=== PATIENT | female | born 1930 ===

== ENCOUNTER 2017-03-25 11:41 | Inpatient (IN) | payer OTHER ==
[2017-03-25 11:45] VITALS: BMI 27.3
[2017-03-25 13:39] LABS: BASO # 0.1 K/uL (0.0-0.2); BASO % 1.3 % (0.0-2.0); EOS # 0.1 K/uL (0.0-0.7); EOS % 1.4 % (0.0-4.0); HEMOGLOBIN 9.6 g/dL (12.0-16.0); LYMPH # 1.6 K/uL (1.0-4.3); LYMPH % 14.7 % (20.0-40.0); MEAN CELL VOLUME 89.2 fl (81.0-99.0); MEAN CORPUSCULAR HEMOGLOBIN 29.8 pg (27.0-31.0); MEAN CORPUSCULAR HGB CONC 33.4 g/dL (33.0-37.0); MEAN PLATELET VOLUME 8.1 fl (7.2-11.7); MONO # 0.9 K/uL (0.0-0.8); MONO % 8.8 % (0.0-10.0); NEUT # 7.8 K/uL (1.8-7.0); NEUT % 73.8 % (50.0-75.0); RBC 3.21 Mil/uL (3.80-5.20); RED CELL DISTRIBUTION WIDTH 14.1 % (11.5-14.5); WHITE BLOOD COUNT 10.6 K/uL (4.8-10.8)
[2017-03-25 14:05] LABS: ALT/SGPT 33 U/L (9-52); AST/SGOT 54 U/L (14-36); BLOOD UREA NITROGEN 27 mg/dl (7-17); CALCIUM 8.8 mg/dL (8.4-10.2); GFR AFRICAN-AMERICAN > 60; GFR NON-AFRICAN AMERICAN 59
--- NOTE | 2017-03-25 14:15 | RAD ---
PROCEDURE: Radiographs of the Right Forearm HISTORY: prior R arm fx COMPARISON: None available. TECHNIQUE: Limited to a single lateral view of the forearm. FINDINGS: BONES: Grossly limited. Only a single lateral view. No fracture identified. JOINT SPACES: Unremarkable. OTHER FINDINGS: None. IMPRESSION: Normal limited examination.
--- NOTE | 2017-03-25 14:17 | RAD ---
PROCEDURE: Radiographs of the right elbow. HISTORY: prior recent R arm fx COMPARISON: No prior. FINDINGS: BONES: No definite fracture. Technically limited examination. No frontal view submitted. JOINTS: Normal. No osteoarthritis. SOFT TISSUES: Normal. JOINT EFFUSION: None. OTHER FINDINGS: None. IMPRESSION: Negative technically limited examination.
--- NOTE | 2017-03-25 14:18 | RAD ---
PROCEDURE: Radiographs of the right humerus. HISTORY: prior recent R arm fx COMPARISON: None. FINDINGS: BONES: Fracture right humeral neck. Displaced. No evidence of glenohumeral dislocation. No other fracture identified. Limited examination technically. SOFT TISSUES: Normal. OTHER FINDINGS: None. IMPRESSION: Displaced humeral neck fracture.
--- NOTE | 2017-03-25 14:19 | RAD ---
PROCEDURE: Radiographs of the Right Shoulder HISTORY: prior recent R arm fx COMPARISON: No prior. FINDINGS: BONES: Grossly displaced humeral neck fracture. Likely comminuted. No other fracture identified. Glenohumeral articulation appears intact. Acromioclavicular articulation appears intact. JOINTS: Normal. Glenohumeral and acromioclavicular joints preserved. No osteoarthritis. SOFT TISSUES: Normal. OTHER FINDINGS: None. IMPRESSION: Comminuted grossly displaced humeral neck fracture.
--- NOTE | 2017-03-25 14:20 | RAD ---
HISTORY: SOB COMPARISON: No prior. FINDINGS: LUNGS: No active pulmonary disease. PLEURA: No significant pleural effusion identified, no pneumothorax apparent. CARDIOVASCULAR: Mitral annular calcification. OSSEOUS STRUCTURES: Comminuted right humeral neck fracture with gross displacement. VISUALIZED UPPER ABDOMEN: Normal. OTHER FINDINGS: None. IMPRESSION: Comminuted displaced right humeral neck fracture.
--- NOTE | 2017-03-25 14:58 | ED PDOC ---
Upper Extremity Pain/Injury Time Seen by Provider: 03/25/17 12:03 Chief Complaint (Nursing): Upper Extremity Problem/Injury Chief Complaint (Provider): Right arm pain History Per: Patient History/Exam Limitations: no limitations Onset/Duration Of Symptoms: Days Current Symptoms Are (Timing): Still Present Additional Complaint(s): 86yo female with history of hypertension, presents to ED with complaints of persistent right arm pain due to frequent falls at home. Patient injured her right arm 1 month ago and was seen at [facility] [place]; patient was discharged with instructions to follow up with orthopedist however she states she has not followed up with either an orthopedist or her primary care provider. She states since then, she has fallen 3-4 times at home and is unable to ambulate effectively. Patient lives alone and does not have her family in the area; she has a home-maker for several hours several days a week. She denies any headache , neck pain, chest pain or shortness of breath. She has no other medical complaints. Past Medical History Reviewed: Historical Data, Nursing Documentation, Vital Signs Vital Signs: Last Vital Signs Temp 98.3 F 03/25/17 11:45 Pulse 86 03/25/17 11:45 Resp 17 03/25/17 11:45 BP 147/77 03/25/17 11:45 Pulse Ox 99 03/25/17 11:45 - Medical History PMH: HTN - Surgical History Surgical History: No Surg Hx - Family History Family History: States: Unknown Family Hx - Living Arrangements Living Arrangements: Alone - Home Medications Home Medications: Ambulatory Orders Medication Instructions Recorded Prednisone [Deltasone] 40 mg PO DAILY #8 tablet 09/12/16 traMADol [Ultram] 50 mg PO Q6H PRN #20 tab 09/12/16 - Allergies Allergies/Adverse Reactions: Allergies Allergy/AdvReac Type Severity Reaction Status Date / Time No Known Allergies Allergy Verified 03/25/17 11:44 Review of Systems ROS Statement: Except As Marked, All Systems Reviewed And Found Negative Cardiovascular: Negative for: Chest Pain Respiratory: Negative for: Shortness of Breath Musculoskeletal: Positive for: Arm Pain (right). Negative for: Neck Pain Neurological: Negative for: Headache Physical Exam - Reviewed Nursing Documentation Reviewed: Yes Vital Signs Reviewed: Yes - Physical Exam Neck: Positive for: Supple Cardiovascular/Chest: Positive for: Regular Rate, Rhythm Respiratory: Positive for: Normal Breath Sounds. Negative for: Respiratory Distress (.) Back: Positive for: Normal Inspection. Negative for: Vertebral Tenderness Extremity: Negative for: Normal ROM (Loss of ROM at right shoulder with old appearing ecchymosis along right shoulder and chest wall. Patient has her arm in a poorly fitted sling and mikayla bandage around her elbow, which appears old.), Tenderness (Patient has non-tender hips and pelvis. ) Neurologic/Psych: Positive for: Alert, Oriented. Negative for: Motor/Sensory Deficits - Laboratory Results Result Diagrams: 03/25/17 13:22 03/25/17 13:22 - ECG O2 Sat by Pulse Oximetry: 99 (RA) Pulse Ox Interpretation: Normal Medical Decision Making Medical Decision Making: Impression: Right upper extremity pain Plan: -- Labs -- Chest x-ray -- XR Right upper extremity -- PT consult Reassess Time: 1215 Labs reviewed and indicates mild stable anemia. Chemistry indicates mild dehydration. Time: 1500 Chest x-ray reviewed and indicates no acute infiltrates. XR Right upper extremity reviewed, indicates a comminuted right humeral neck fracture. High concern for inability to care for self at home. Dr. Gentile aware of case and will follow patient. Time: 1506 Patient seen and evaluated by physical therapy, recommends subacute rehab. Cannot be discharged as cannot ambulate and failed outpatient therapy. Patient complaining of mild cough, on exam patient noted to have slight wheeze. Brad ordered. Patient to be admitted under medicine division human resources manager, Dr. Damico. Scribe Attestation: Documented by Diana Chapman acting as a scribe for Mj Andrade DO. Provider Attestation: All medical record entries made by the Scribe were at my direction and personally dictated by me. I have reviewed the chart and agree that the record accurately reflects my personal performance of the history, physical exam, medical decision making, and the department course for this patient. I have also personally directed, reviewed, and agree with the discharge instructions and disposition. Disposition - Clinical Impression Clinical Impression: Humeral surgical neck fracture, Asthma exacerbation - Patient ED Disposition Is Patient to be Admitted: Yes Counseled Patient/Family Regarding: Studies Performed, Diagnosis, Need For Followup - Disposition Disposition Time: 14:45 Condition: FAIR - Pt Status Changed To: Hospital Disposition Of: Inpatient - Admit Certification Admit to Inpatient:: After my assessment, the patient will require hospitalization for at least two midnights. This is because of the severity of symptoms shown, intensity of services needed, and/or the medical risk in this patient being treated as an outpatient. - POA Present On Arrival: Falls Or Trauma
[2017-03-25] MEDS ORDERED: Albuterol-Ipratrop 3 mg / 0.5 (3 ml) UD INH STA (15:05)
--- NOTE | 2017-03-25 15:30 | CP.PCM.CON ---
History of Present Illness - History of Present Illness History of Present Illness: Orthopaedic Consult note for Dr. Gentile 86 year old female with PMHx including HTN was seen in the ED for complaint of right shoulder pain. Patient states that a few weeks ago, she fell and hurt her right shoulder. She was seen at that time at [facility] [place] and was discharged home. She states that she did not follow up as instructed. She states that she has since fallen 3 more times at home. She admits to taking aspirin for the pain, but it doesn't help much. She currently rates her pain as 7/10. She is unable to move her right upper extremity without pain. She is currently in a sling. She currently denies any n/v/f/c/sob/cp. Past Patient History - Past Social History Smoking Status: Never Smoked - CARDIAC Hx Hypertension: Yes - PSYCHIATRIC Hx Substance Use: No Meds Allergies/Adverse Reactions: Allergies Allergy/AdvReac Type Severity Reaction Status Date / Time No Known Allergies Allergy Verified 03/25/17 11:44 Physical Exam - Constitutional Appears: Well, Non-toxic, No Acute Distress - Extremities Exam Additional comments: ecchymosis noted to the right shoulder tenderness on palpation to right shoulder Shoulder ROM deferred due to pain - Neurological Exam Neurological exam: Alert, Oriented x3 - Psychiatric Exam Psychiatric exam: Normal Affect, Normal Mood Results - Vital Signs Recent Vital Signs: Last Vital Signs Temp 98.3 F 03/25/17 11:45 Pulse 86 03/25/17 11:45 Resp 17 03/25/17 11:45 BP 147/77 03/25/17 11:45 Pulse Ox 99 03/25/17 15:10 - Labs Result Diagrams: 03/25/17 13:22 03/25/17 13:22 Labs: Laboratory Results - last 24 hr 03/25/17 03/25/17 13:22 13:22 WBC 10.6 RBC 3.21 L Hgb 9.6 L Hct 28.6 L MCV 89.2 MCH 29.8 MCHC 33.4 RDW 14.1 Plt Count 264 MPV 8.1 Neut % (Auto) 73.8 Lymph % (Auto) 14.7 L [place] % (Auto) 8.8 Eos % (Auto) 1.4 Baso % (Auto) 1.3 Neut # 7.8 H Lymph # 1.6 [place] # 0.9 H Eos # 0.1 Baso # 0.1 Sodium 139 Potassium 4.0 Chloride 103 Carbon Dioxide 24 Anion Gap 16 BUN 27 H Creatinine 0.9 Est GFR ( Amer) > 60 Est GFR (Non-Af Amer) 59 Random Glucose 103 Calcium 8.8 Total Bilirubin 1.2 AST 54 H ALT 33 Alkaline Phosphatase 82 Total Protein 7.9 Albumin 4.0 Globulin 3.9 Albumin/Globulin Ratio 1.0 Assessment & Plan - Assessment and Plan (Free Text) Assessment: 86 year old female with right humeral fracture Plan: patient seen and evaluated discussed in detail with attending, Dr. Gentile radiographs reviewed IMPRESSION: Comminuted grossly displaced humeral neck fracture right upper extremity CT scan pending will continue to follow patient while in house
--- NOTE | 2017-03-25 16:31 | RAD ---
PROCEDURE: Radiographs of the pelvis. HISTORY: falls COMPARISON: None. FINDINGS: BONES: Pelvic Bones: Unremarkable. Hips: Left hip suboptimally evaluated. No gross evidence of fracture of either hip. JOINTS: Sacroiliac Joints: Unremarkable. Pubic Symphysis: Unremarkable. OTHER FINDINGS: None. IMPRESSION: Unremarkable radiographs of the pelvis. Limited evaluation of the hips.
[2017-03-25] MEDS ORDERED: Albuterol-Ipratrop 3 mg / 0.5 (3 ml) UD ONE (17:07)
[2017-03-25 17:09] LABS: GRANULAR CAST 19 /lpf (0-1); SQUAMOUS EPITHIAL 4 /hpf (0-5); URINE BILIRUBIN NEGATIVE (NEGATIVE); URINE BLOOD SMALL (NEGATIVE); URINE CLARITY SLIGHTY-CLOUDY (Clear); URINE COLOR YELLOW (YELLOW); URINE GLUCOSE (UA) NEG (Normal); URINE LEUKOCYTE ESTERASE NEG Leu/uL (Negative); URINE NITRATE NEGATIVE (NEGATIVE); URINE PROTEIN 100 mg/dL (NEGATIVE); URINE UROBILINOGEN 0.2-1.0 mg/dL (0.2-1.0)
--- NOTE | 2017-03-25 18:05 | CT ---
PROCEDURE: Right upper extremity HISTORY: right humeral fracture COMPARISON: 2017. Plain film radiographs right humerus TECHNIQUE: 1.25 mm axial acquisition and display. Coronal and sagittal reconstructions. Radiation dosimetry DLP (mGy-cm) 3D volumetric imaging also performed. FINDINGS: Impacted, comminuted fracture proximal right humerus. Preservation of glenohumeral relationship. Distraction of major fracture fragments. The humeral neck component is displaced anteriorly and medially relative to the glenoid. Diffuse osteopenia is noted. However consideration should be given to pathologic fracture. Is there a history of malignancy? Moderate joint effusion. Soft tissue swelling about the shoulder girdle muscles. IMPRESSION: Impacted and comminuted fracture proximal right humerus. Diffuse osteopenia noted. However the overall appearance suggests possibility of pathologic fracture.
--- NOTE | 2017-03-25 23:07 | CP.PCM.HP ---
History of Present Illness - History of Present Illness History of Present Illness: CC: R arm pain History of Present Illness: A 86 year old female with hx of HTN and asthma who presents to the ED with c/o of R arm pain 7-8-/10 which gets worse with trying to move. Patient states she fell a few weeks ago and was admitted to [facility] [place]. She was discharged but never followed up with an Orthopedic doctor as was instructed. Pt states she has fallen 3 or 4 times after that. Patient lives alone with home care companion for a few hours/day Wednesday-Fridays. Denies LOC, chest pain or palpitation. Present on Admission - Present on Admission Any Indicators Present on Admission: No History of DVT/PE: No History of Uncontrolled Diabetes: No Review of Systems - Review of Systems All systems: reviewed and no additional remarkable complaints except (as stated) - Constitutional Constitutional: Frequent Falls - Musculoskeletal Musculoskeletal: Limited Range of Motion (right shoulder) - Integumentary Additional comments: ecchymosis r shoulder/upper arm Past Patient History - Past Medical History & Family History Past Medical History?: Yes - Past Social History Smoking Status: Never Smoked - CARDIAC Hx Hypertension: Yes - PULMONARY Hx Asthma: Yes - MUSCULOSKELETAL/RHEUMATOLOGICAL Hx Falls: Yes - PSYCHIATRIC Hx Substance Use: No Meds Allergies/Adverse Reactions: Allergies Allergy/AdvReac Type Severity Reaction Status Date / Time No Known Allergies Allergy Verified 03/25/17 11:44 Physical Exam - Constitutional Appears: Well, No Acute Distress - Head Exam Head Exam: ATRAUMATIC - Eye Exam Eye Exam: Normal appearance - ENT Exam ENT Exam: Mucous Membranes Moist - Neck Exam Neck exam: Positive for: Full Rom, Normal Inspection - Respiratory Exam Respiratory Exam: Clear to Auscultation Bilateral, NORMAL BREATHING PATTERN - Cardiovascular Exam Cardiovascular Exam: REGULAR RHYTHM, +S1, +S2 - GI/Abdominal Exam GI & Abdominal Exam: Normal Bowel Sounds, Soft - Rectal Exam Rectal Exam: Deferred - Extremities Exam Extremities exam: Positive for: normal capillary refill, pedal pulses present Additional comments: limited ROM r shoulder - Back Exam Back exam: NORMAL INSPECTION - Neurological Exam Neurological exam: Alert, Oriented x3 - Psychiatric Exam Psychiatric exam: Normal Affect, Normal Mood - Skin Skin Exam: Normal Color, Warm Additional comments: ecchymosis r upper arm Results - Vital Signs Recent Vital Signs: Last Vital Signs Temp 98.8 F 03/25/17 21:19 Pulse 83 03/25/17 21:19 Resp 20 03/25/17 21:19 BP 145/71 03/25/17 21:19 Pulse Ox 95 03/25/17 21:19 - Labs Result Diagrams: 03/25/17 13:22 03/25/17 13:22 Labs: Laboratory Results - last 24 hr 03/25/17 03/25/17 03/25/17 13:22 13:22 16:45 WBC 10.6 RBC 3.21 L Hgb 9.6 L Hct 28.6 L MCV 89.2 MCH 29.8 MCHC 33.4 RDW 14.1 Plt Count 264 MPV 8.1 Neut % (Auto) 73.8 Lymph % (Auto) 14.7 L [place] % (Auto) 8.8 Eos % (Auto) 1.4 Baso % (Auto) 1.3 Neut # 7.8 H Lymph # 1.6 [place] # 0.9 H Eos # 0.1 Baso # 0.1 Sodium 139 Potassium 4.0 Chloride 103 Carbon Dioxide 24 Anion Gap 16 BUN 27 H Creatinine 0.9 Est GFR ( Amer) > 60 Est GFR (Non-Af Amer) 59 Random Glucose 103 Calcium 8.8 Total Bilirubin 1.2 AST 54 H ALT 33 Alkaline Phosphatase 82 Total Protein 7.9 Albumin 4.0 Globulin 3.9 Albumin/Globulin Ratio 1.0 Urine Color Yellow Urine Clarity Slighty-cloudy Urine pH 5.0 Ur Specific [place] 1.020 Urine Protein 100 Urine Glucose (UA) Neg Urine Ketones 20 Urine Blood Small Urine Nitrate Negative Urine Bilirubin Negative Urine Urobilinogen 0.2-1.0 Ur Leukocyte Esterase Neg Urine RBC (Auto) 4 H Urine Microscopic WBC 2 Ur Squamous Epith Cells 4 Hyaline Casts 11-20 H Granular Casts (Auto) 19 - EKG Data EKG comments: Normal sinus rhythm Left axis deviation T wave abnormality, consider anterior ischemia Abnormal ECG - Imaging and Cardiology CT scan Additional comment: PROCEDURE: Right upper extremity HISTORY: right humeral fracture COMPARISON: 2017. Plain film radiographs right humerus TECHNIQUE: 1.25 mm axial acquisition and display. Coronal and sagittal reconstructions. Radiation dosimetry DLP (mGy-cm) 3D volumetric imaging also performed. FINDINGS: Impacted, comminuted fracture proximal right humerus. Preservation of glenohumeral relationship. Distraction of major fracture fragments. The humeral neck component is displaced anteriorly and medially relative to the glenoid. Diffuse osteopenia is noted. However consideration should be given to pathologic fracture. Is there a history of malignancy? Moderate joint effusion. Soft tissue swelling about the shoulder girdle muscles. IMPRESSION: Impacted and comminuted fracture proximal right humerus. Diffuse osteopenia noted. However the overall appearance suggests possibility of pathologic fracture. Assessment & Plan (1) Falls frequently Assessment and Plan: most likely related to fractures arm, unsteady gait PT/OT rehab for gait training Status: Acute Priority: High (2) Humeral surgical neck fracture Assessment and Plan: Commuted Fractures Pain medication PRN Immobilized with sling TTE CArdiology consult for Clearance for Possible ORIF Ortho consult possible surgery DVT prophylaxis PT/OT Status: Acute Priority: High (3) Hypertension Assessment and Plan: on medications Status: Chronic Priority: Medium (4) Asthma Assessment and Plan: duonebs as needed Status: Chronic Priority: Low - Assessment and Plan (Free Text) Assessment: 86 year old female admitted with r femoral heck fracture Plan: ortho consult cardiology consult echo labs dvt prophylaxis PT/OT
[2017-03-26 07:18] LABS: INR 1.1 (0.9-1.2); PARTIAL THROMBOPLASTIN TIME 23.7 Seconds (25.6-37.1); PROTHROMBIN TIME 12.5 Seconds (9.8-13.1)
[2017-03-26] MEDS: Enoxaparin 40 mg Syringe SC SCH (09:23)
[2017-03-26] MEDS: Metoprolol Succinate 25 mg XL Tab PO SCH (09:24)
[2017-03-26] MEDS ORDERED: Vitamin A/D oint 60G TP ONE (09:29)
--- NOTE | 2017-03-26 12:41 | CP.PCM.CON ---
History of Present Illness - History of Present Illness History of Present Illness: This 86-year-old female who lives alone came into the emergency room complaining of severe right upper extremity pain and was found to have a fractured right humerus. She gives history of having had multiple falls. She denies any history of diabetes or hypertension and denies any episode of chest pain or any history of myocardial infarction or symptoms of congestive cardiac failure. On physical examination this is an elderly pleasant lady complaining of severe right upper extremity pain but otherwise free of any shortness of breath or palpitations or any other discomfort. Beats at 16 breaths per minute and can carry on a conversation while lying flat in bed. Has a pulse rate of 64 bpm and regular and a blood pressure of 138/74 mmHg. Her jugular venous pressure was not elevated was no edema over the lower extremity. The pedal pulses are well felt. There were no carotid bruits. Her next images were warm and nailbeds were pink. Breeding was not palpable the first and second heart sounds were normal. There was a very B apical systolic murmur. There was no gallop rhythm there were no rales. Her abdomen was soft her liver and spleen are not palpable. Electro-Cardiologic shows sinus rhythm with nonspecific ST changes but otherwise a normal QRS pattern with no Q waves. Her echocardiogram showed normal left ventricular systolic function with no significant valvulopathy. Her lab data was noted. She had a mild normocytic normochromic anemia. Impression: Fracture of the right humerus. Mild normocytic normochromic anemia. The patient is stable from cardiovascular point of view to proceed with the planned surgery Past Patient History - Past Medical History & Family History Past Medical History?: Yes - Past Social History Smoking Status: Never Smoked - CARDIAC Hx Hypertension: Yes - MUSCULOSKELETAL/RHEUMATOLOGICAL Hx Falls: Yes - PSYCHIATRIC Hx Substance Use: No - ANESTHESIA Hx Anesthesia: Yes Hx Anesthesia Reactions: No Hx Malignant Hyperthermia: No Meds Allergies/Adverse Reactions: Allergies Allergy/AdvReac Type Severity Reaction Status Date / Time No Known Allergies Allergy Verified 03/25/17 11:44 - Medications Medications: Current Medications Amlodipine Besylate (Norvasc) 10 mg PO DAILY [facility] Last Admin: 03/26/17 09:24 Dose: 10 mg Enoxaparin Sodium (Lovenox) 40 mg SC DAILY [facility] PRN Reason: Protocol Last Admin: 03/26/17 09:23 Dose: 40 mg Gabapentin (Neurontin) 300 mg PO DAILY [facility] Last Admin: 03/26/17 09:23 Dose: 300 mg Hydromorphone HCl (Dilaudid) 0.5 mg IVP Q6H PRN PRN Reason: Pain, severe (8-10) Stop: 03/29/17 23:59 Last Admin: 03/26/17 00:47 Dose: 0.5 mg Ketorolac Tromethamine (Toradol) 15 mg IVP Q6 PRN PRN Reason: Pain, moderate (4-7) Stop: 03/29/17 23:59 Last Admin: 03/26/17 11:36 Dose: 15 mg Metoprolol Succinate (Toprol Xl) 25 mg PO DAILY [facility] Last Admin: 03/26/17 09:24 Dose: 25 mg Results - Vital Signs Recent Vital Signs: Last Vital Signs Temp 98.7 F 03/26/17 08:47 Pulse 82 03/26/17 09:24 Resp 20 03/26/17 08:47 BP 139/84 03/26/17 09:24 Pulse Ox 97 03/26/17 08:47 - Labs Result Diagrams: 03/25/17 13:22 03/25/17 13:22 Labs: Laboratory Results - last 24 hr 03/25/17 03/25/17 03/25/17 13:22 13:22 16:45 WBC 10.6 RBC 3.21 L Hgb 9.6 L Hct 28.6 L MCV 89.2 MCH 29.8 MCHC 33.4 RDW 14.1 Plt Count 264 MPV 8.1 Neut % (Auto) 73.8 Lymph % (Auto) 14.7 L [place] % (Auto) 8.8 Eos % (Auto) 1.4 Baso % (Auto) 1.3 Neut # 7.8 H Lymph # 1.6 [place] # 0.9 H Eos # 0.1 Baso # 0.1 PT INR APTT Sodium 139 Potassium 4.0 Chloride 103 Carbon Dioxide 24 Anion Gap 16 BUN 27 H Creatinine 0.9 Est GFR ( Amer) > 60 Est GFR (Non-Af Amer) 59 Random Glucose 103 Calcium 8.8 Total Bilirubin 1.2 AST 54 H ALT 33 Alkaline Phosphatase 82 Total Protein 7.9 Albumin 4.0 Globulin 3.9 Albumin/Globulin Ratio 1.0 TSH 3rd Generation Urine Color Yellow Urine Clarity Slighty-cloudy Urine pH 5.0 Ur Specific [place] 1.020 Urine Protein 100 Urine Glucose (UA) Neg Urine Ketones 20 Urine Blood Small Urine Nitrate Negative Urine Bilirubin Negative Urine Urobilinogen 0.2-1.0 Ur Leukocyte Esterase Neg Urine RBC (Auto) 4 H Urine Microscopic WBC 2 Ur Squamous Epith Cells 4 Hyaline Casts 11-20 H Granular Casts (Auto) 03/26/17 03/26/17 05:20 05:20 WBC RBC Hgb Hct MCV MCH MCHC RDW Plt Count MPV Neut % (Auto) Lymph % (Auto) [place] % (Auto) Eos % (Auto) Baso % (Auto) Neut # Lymph # [place] # Eos # Baso # PT 12.5 INR 1.1 APTT 23.7 L Sodium Potassium Chloride Carbon Dioxide Anion Gap BUN Creatinine Est GFR ( Amer) Est GFR (Non-Af Amer) Random Glucose Calcium Total Bilirubin AST ALT Alkaline Phosphatase Total Protein Albumin Globulin Albumin/Globulin Ratio TSH 3rd Generation 1.64 Urine Color Urine Clarity Urine pH Ur Specific [place] Urine Protein Urine Glucose (UA) Urine Ketones Urine Blood Urine Nitrate Urine Bilirubin Urine Urobilinogen Ur Leukocyte Esterase Urine RBC (Auto) Urine Microscopic WBC Ur Squamous Epith Cells Hyaline Casts Granular Casts (Auto)
--- NOTE | 2017-03-26 13:53 | CP.PCM.PN ---
Subjective - Date & Time of Evaluation Date of Evaluation: 03/26/17 Time of Evaluation: 13:53 - Subjective Subjective: Pt seen and examined at bedside. c/o of pain to R shoulder. [employer] Cleared the patient for ORIF, and patient undecided about the surgery. PAtient lives by herself and multiple falls. Unsafe to live by herself and will need ABE after Sx due to multiple falls. Objective - Vital Signs/Intake and Output Vital Signs (last 24 hours): Temp Pulse Resp BP Pulse Ox 98.7 F 82 20 139/84 97 03/26/17 08:47 03/26/17 09:24 03/26/17 08:47 03/26/17 09:24 03/26/17 08:47 - Medications Medications: Current Medications Amlodipine Besylate (Norvasc) 10 mg PO DAILY [facility] Last Admin: 03/26/17 09:24 Dose: 10 mg Enoxaparin Sodium (Lovenox) 40 mg SC DAILY [facility] PRN Reason: Protocol Last Admin: 03/26/17 09:23 Dose: 40 mg Gabapentin (Neurontin) 300 mg PO DAILY [facility] Last Admin: 03/26/17 09:23 Dose: 300 mg Hydromorphone HCl (Dilaudid) 0.5 mg IVP Q6H PRN PRN Reason: Pain, severe (8-10) Stop: 03/29/17 23:59 Last Admin: 03/26/17 00:47 Dose: 0.5 mg Ketorolac Tromethamine (Toradol) 15 mg IVP Q6 PRN PRN Reason: Pain, moderate (4-7) Stop: 03/29/17 23:59 Last Admin: 03/26/17 11:36 Dose: 15 mg Metoprolol Succinate (Toprol Xl) 25 mg PO DAILY [facility] Last Admin: 03/26/17 09:24 Dose: 25 mg - Labs Labs: 03/25/17 13:22 03/25/17 13:22 PT 12.5 Seconds (9.8-13.1) 03/26/17 05:20 INR 1.1 (0.9-1.2) 03/26/17 05:20 APTT 23.7 Seconds (25.6-37.1) L 03/26/17 05:20 - Constitutional Appears: Well, No Acute Distress - Head Exam Head Exam: ATRAUMATIC - Respiratory Exam Respiratory Exam: Clear to Ausculation Bilateral, NORMAL BREATHING PATTERN - Cardiovascular Exam Cardiovascular Exam: REGULAR RHYTHM, +S1, +S2 - GI/Abdominal Exam GI & Abdominal Exam: Soft, Normal Bowel Sounds - Extremities Exam Extremities Exam: Normal Capillary Refill Additional comments: ecchymosis R shoulder - Neurological Exam Neurological Exam: Alert, Awake, Oriented x3 Neuro motor strength exam: Left Upper Extremity: 4, Right Upper Extremity: 3 - Psychiatric Exam Psychiatric exam: Normal Affect, Normal Mood - Skin Skin Exam: Dry, Intact Assessment and Plan (1) Hypertension Assessment & Plan: continue medications cardiology consult Status: Chronic (2) Humeral surgical neck fracture Assessment & Plan: Surgery consult pain management PT/OT Status: Acute (3) Asthma Assessment & Plan: respiratory treatments Status: Chronic (4) Falls frequently Status: Acute - Assessment and Plan (Free Text) Assessment: 86 year old female with hx of frequent falls, admitted for R humeral neck fracture Plan: possible surgery Cardiology consult appreciated Echo pain management PT/OT
--- NOTE | 2017-03-26 17:57 | CARD ---
APPROVED REPORT EXAM: Two-dimensional and M-mode echocardiogram with Doppler and color Doppler. Other Information Quality : GoodRhythm : NSR INDICATION Pre-Op 2D DIMENSIONS IVSd1.08 (0.7-1.1cm)LVDd4.02 (3.9-5.9cm) LVOT Diameter2.02 (1.8-2.4cm)PWd1.04 (0.7-1.1cm) IVSs1.65 (0.8-1.2cm)LVDs2.26 (2.5-4.0cm) FS (%) 43.9 %PWs1.50 (0.8-1.2cm) M-Mode DIMENSIONS Left Atrium (MM)4.24 (2.5-4.0cm)IVSd1.18 (0.7-1.1cm) Aortic Root3.06 (2.2-3.7cm)LVDd5.47 (4.0-5.6cm) Aortic Cusp Exc.1.47 (1.5-2.0cm)PWd1.15 (0.7-1.1cm) IVSs1.65 cmFS (%) 48 % LVDs2.85 (2.0-3.8cm)PWs1.32 cm Mitral Valve MV E Wdhqlcun81.2cm/sMV DECEL [id number] A Dgvlhwnm113.9cm/s MV TKR380hpU/A ratio0.5MVA (PHT)2.19cm2 TDI Lateral E' Peak V6.84cm/sMedial E' Peak V4.56cm/sE/Lateral E'9.7 E/Medial E'14.5 Pulmonary Valve PV Peak Njugadvx857.2cm/s LEFT VENTRICLE The left ventricle is normal size. There is normal left ventricular wall thickness. The left ventricular function is normal. The left ventricular ejection fraction is 60% There is normal LV segmental wall motion. The left ventricular diastolic function is normal. No left ventricle thrombus noted on this study. There is no ventricular septal defect visualized. There is no left ventricular aneurysm. There is no mass noted in the left ventricle. RIGHT VENTRICLE The right ventricle is normal size. There is normal right ventricular wall thickness. The right ventricular systolic function is normal. ATRIA The left atrium size is normal. The right atrium size is normal. The interatrial septum is intact with no evidence for an atrial septal defect. AORTIC VALVE The aortic valve is normal in structure. No aortic regurgitation is present. There is no aortic valvular stenosis. There is no aortic valvular vegetation. MITRAL VALVE The mitral valve is normal in structure. There is no evidence of mitral valve prolapse. There is no mitral valve stenosis. There is no mitral valve regurgitation noted. TRICUSPID VALVE The tricuspid valve is normal in structure. There is no tricuspid valve regurgitation noted. There is no tricuspid valve prolapse or vegetation. There is no tricuspid valve stenosis. PULMONIC VALVE The pulmonary valve is normal in structure. There is no pulmonic valvular regurgitation. There is no pulmonic valvular stenosis. GREAT VESSELS The aortic root is normal in size. The ascending aorta is normal in size. The IVC is normal in size and collapses >50% with inspiration. PERICARDIAL EFFUSION The pericardium appears normal. There is no pleural effusion. <Conclusion> Normal Echocardiogram
--- NOTE | 2017-03-26 18:19 | CARD ---
APPROVED REPORT EKG Measurement Heart [id number] <Conclusion> Normal sinus rhythm Left axis deviation T wave abnormality, consider anterior ischemia Abnormal ECG
[2017-03-27] MEDS: Enoxaparin 40 mg Syringe SC SCH (09:05)
[2017-03-27] MEDS: Metoprolol Succinate 25 mg XL Tab PO SCH (09:06)
--- NOTE | 2017-03-27 15:52 | CON ---
DATE: 03/27/2017 HISTORY OF PRESENT ILLNESS: The patient is an 86-year-old female with history of hypertension, presented to the emergency with history of repeat falls. The patient was initially seen at the [facility] and was discharged with instructions to follow up with an orthopedic surgeon. The patient currently is examined at the bedside. The patient has a history of repeated falls and is unable to ambulate with a walker effectively and currently the patient's emergency room x-rays showed a displaced right proximal humerus fracture. The patient reports pain and stiffness. Denies any paresthesia or motor weakness. Denies any dizziness. Denies any chest pain. PAST MEDICAL HISTORY: Hypertension. ALLERGIES: NO KNOWN DRUG ALLERGIES. PHYSICAL EXAMINATION: EXTREMITIES: Examination of the patient's right shoulder is showing swelling and ecchymosis of the right shoulder. Limited range of motion secondary to pain in all planes. Neurovascularly intact distally. IMAGING: X-rays and CT scan of the patient's right shoulder showing a 2 to 3 part displaced proximal humerus fracture. ASSESSMENT: An 86-year-old female, right-hand dominant, with right shoulder proximal humerus fracture. TREATMENT: I had a detailed discussion with the patient reviewing the history, physical exam and imaging findings. I presented the patient with different treatment options, operative versus nonoperative management of the proximal humerus fracture. After careful consideration, the patient would like to hold off on surgery. I will see the patient back in my office upon discharge. She will remain nonweightbearing with range of motion as tolerated of the right shoulder and the patient wishes to proceed with surgical option in the future, we will consider fixation versus replacement of the right shoulder. The patient agrees with the plan and followup upon discharge. Timoteo Gentile MD [facility]
--- NOTE | 2017-03-27 17:00 | CP.PCM.PN ---
Subjective - Date & Time of Evaluation Date of Evaluation: 03/27/17 Time of Evaluation: 16:45 - Subjective Subjective: Pt seen and examined at bedside. c/o of pain to R shoulder PAin 6-10/08. [employer]p [employer] Cleared the patient for ORIF, and patient undecided about the surgery.Orthopedics tto follow the patient f D/c home as the patient is refusing ORIF as per the Ortho MD. Patient lives by herself and multiple falls. Unsafe to live by herself and will need ABE after discharge due to multiple falls. Objective - Vital Signs/Intake and Output Vital Signs (last 24 hours): Temp Pulse Resp BP Pulse Ox 99 F 71 20 121/67 97 03/27/17 16:10 03/27/17 16:10 03/27/17 16:10 03/27/17 16:10 03/27/17 16:10 - Medications Medications: Current Medications Amlodipine Besylate (Norvasc) 10 mg PO DAILY [facility] Last Admin: 03/27/17 09:05 Dose: 10 mg Enoxaparin Sodium (Lovenox) 40 mg SC DAILY [facility] PRN Reason: Protocol Last Admin: 03/27/17 09:05 Dose: 40 mg Gabapentin (Neurontin) 300 mg PO DAILY [facility] Last Admin: 03/27/17 09:05 Dose: 300 mg Hydromorphone HCl (Dilaudid) 0.5 mg IVP Q6H PRN PRN Reason: Pain, severe (8-10) Stop: 03/29/17 23:59 Last Admin: 03/27/17 02:25 Dose: 0.5 mg Ketorolac Tromethamine (Toradol) 15 mg IVP Q6 PRN PRN Reason: Pain, moderate (4-7) Stop: 03/29/17 23:59 Last Admin: 03/27/17 16:56 Dose: 15 mg Lactulose (Enulose) 20 gm PO BID [facility] Last Admin: 03/27/17 16:57 Dose: Not Given Metoprolol Succinate (Toprol Xl) 25 mg PO DAILY [facility] Last Admin: 03/27/17 09:06 Dose: 25 mg - Labs Labs: 03/25/17 13:22 03/25/17 13:22 PT 12.5 Seconds (9.8-13.1) 03/26/17 05:20 INR 1.1 (0.9-1.2) 03/26/17 05:20 APTT 23.7 Seconds (25.6-37.1) L 03/26/17 05:20 - Constitutional Appears: Well, No Acute Distress - Head Exam Head Exam: ATRAUMATIC, NORMAL INSPECTION, NORMOCEPHALIC - Eye Exam Eye Exam: EOMI, Normal appearance, PERRL Pupil Exam: NORMAL ACCOMODATION, PERRL - ENT Exam ENT Exam: Mucous Membranes Moist, Normal Exam - Neck Exam Neck Exam: Full ROM, Normal Inspection. absent: Lymphadenopathy - Respiratory Exam Respiratory Exam: Clear to Ausculation Bilateral, NORMAL BREATHING PATTERN - Cardiovascular Exam Cardiovascular Exam: REGULAR RHYTHM, +S1, +S2. absent: Murmur - GI/Abdominal Exam GI & Abdominal Exam: Soft, Normal Bowel Sounds. absent: Tenderness - Extremities Exam Extremities Exam: Normal Capillary Refill. absent: Joint Swelling, Pedal Edema Additional comments: Right arm deformity and tender with slight movement. Immobilized with sling, and intact Neurovascular Bundle distal the fracture site - Back Exam Back Exam: Full ROM, NORMAL INSPECTION - Neurological Exam Neurological Exam: Abnormal Gait, Alert, Awake, CN II-XII Intact, Oriented x3 - Psychiatric Exam Psychiatric exam: Normal Affect, Normal Mood - Skin Skin Exam: Dry, Intact, Normal Color, Warm Assessment and Plan (1) Falls frequently Assessment & Plan: most likely related to fractures arm, unsteady gait PT/OT rehab for gait training Status: Acute Priority: High (2) Humeral surgical neck fracture Assessment and Plan: Commuted Fractures Pain medication PRN Immobilized with sling TTE- done and normal LV function. Cardiology Cleared Ortho consult possible surgery DVT prophylaxis PT/OT Status: Acute Priority: High (3) Hypertension Assessment and Plan: on medications Status: Chronic Priority: Medium (4) Asthma Assessment and Plan: Duonebs as needed Status: Chronic Priority: Low Status: Acute
--- NOTE | 2017-03-27 18:15 | CT ---
PROCEDURE: CT of the right shoulder -humerus 03/27/2017. HISTORY: Fracture right humerus COMPARISON: Comparison made with prior CT scan of the right right shoulder/humerus dated 03/25/2017 TECHNIQUE: Contiguous helical/transaxial images of the right hip were obtained. Coronal and sagittal reformats were generated. This CT exam was performed using one or more of the following dose reduction techniques: Automated exposure control, adjustment of the mA and/or kV according to patient size, and/or use of iterative reconstruction technique. Radiation dose: Total DLP = 513.45 mGy FINDINGS: BONES: The current study re- demonstrates a comminuted impacted fracture of the right proximal humerus. The large distal humeral fracture fragment of remains anteriorly distracted/displaced. Overall the appearance is of essentially unchanged allowing for differences in patient positioning and slice placement. Surrounding soft tissue swelling likely representing some combination of hemorrhage edema of with associated joint effusion. IMPRESSION: Re- demonstrated is a comminuted impacted fracture of the proximal right humerus with anterior displacement/ distraction of the proximal aspect of the large distal humeral fragment.
[2017-03-28] MEDS: Enoxaparin 40 mg Syringe SC SCH (09:18)
[2017-03-28] MEDS: Metoprolol Succinate 25 mg XL Tab PO SCH (09:19)
--- NOTE | 2017-03-28 22:49 | CP.PCM.PN ---
Subjective - Date & Time of Evaluation Date of Evaluation: 03/28/17 Time of Evaluation: 16:05 - Subjective Subjective: Pt seen and examined at bedside. C/o of R arm pain 6-10/08. Cardiology cleared pt for ORIF, pt undecided at this time. Orthopedics to follow the pt upon d/c as the pt is refusing sx now as per ortho MD. Patient lives by herself and has multiple falls. Patient is unsafe to live by herself and will need ABE upon d/c due to multiple falls. Objective - Vital Signs/Intake and Output Vital Signs (last 24 hours): Temp Pulse Resp BP Pulse Ox 98.5 F 69 20 107/67 99 03/28/17 16:12 03/28/17 16:12 03/28/17 16:12 03/28/17 16:12 03/28/17 16:12 - Medications Medications: Current Medications Amlodipine Besylate (Norvasc) 10 mg PO DAILY [facility] Last Admin: 03/28/17 09:19 Dose: 10 mg Diphenhydramine HCl (Benadryl) 25 mg PO HS PRN PRN Reason: Insomnia Last Admin: 03/28/17 21:18 Dose: 25 mg Enoxaparin Sodium (Lovenox) 40 mg SC DAILY [facility] PRN Reason: Protocol Last Admin: 03/28/17 09:18 Dose: 40 mg Gabapentin (Neurontin) 300 mg PO DAILY [facility] Last Admin: 03/28/17 09:19 Dose: 300 mg Ketorolac Tromethamine (Toradol) 15 mg IVP Q6 PRN PRN Reason: Pain, moderate (4-7) Stop: 03/29/17 23:59 Last Admin: 03/27/17 16:56 Dose: 15 mg Metoprolol Succinate (Toprol Xl) 25 mg PO DAILY [facility] Last Admin: 03/28/17 09:19 Dose: 25 mg - Labs Labs: 03/25/17 13:22 03/25/17 13:22 PT 12.5 Seconds (9.8-13.1) 03/26/17 05:20 INR 1.1 (0.9-1.2) 03/26/17 05:20 APTT 23.7 Seconds (25.6-37.1) L 03/26/17 05:20 - Constitutional Appears: Well, No Acute Distress - Head Exam Head Exam: ATRAUMATIC - Neck Exam Neck Exam: Full ROM - Respiratory Exam Respiratory Exam: Clear to Ausculation Bilateral, NORMAL BREATHING PATTERN - Cardiovascular Exam Cardiovascular Exam: REGULAR RHYTHM, +S1, +S2 - GI/Abdominal Exam GI & Abdominal Exam: Soft, Normal Bowel Sounds - Extremities Exam Extremities Exam: Normal Capillary Refill, Normal Inspection. absent: Joint Swelling, Pedal Edema Additional comments: limited ROM right arm - Neurological Exam Neurological Exam: Alert, Awake, Oriented x3 Neuro motor strength exam: Left Upper Extremity: 4, Right Upper Extremity: 3 - Psychiatric Exam Psychiatric exam: Normal Affect, Normal Mood - Skin Skin Exam: Dry, Normal Color Assessment and Plan (1) Falls frequently Assessment & Plan: Most likely related to fracture of arm PT/OT rehab for gait training Status: Acute (2) Humeral surgical neck fracture Assessment & Plan: Comminuted fractures pain medication prn R arm immobilized with sling TTE- done, normal LV function cardiology cleared for sx Ortho consult possible sx DVT prophylaxis PT/OT Status: Acute (3) Hypertension Assessment & Plan: On medications Status: Chronic (4) Asthma Assessment & Plan: Duonebs as needed Status: Chronic
[2017-03-29] MEDS: Metoprolol Succinate 25 mg XL Tab PO SCH (08:47)
[2017-03-29] MEDS: Enoxaparin 40 mg Syringe SC SCH (08:48)
[2017-03-29] MEDS: Albuterol-Ipratrop 3 mg / 0.5 (3 ml) UD INH SCH ×3 (11:30→19:16)
[2017-03-29 12:16] LABS: BASO # 0.1 K/uL (0.0-0.2); BASO % 0.9 % (0.0-2.0); EOS # 0.4 K/uL (0.0-0.7); EOS % 6.5 % (0.0-4.0); HEMOGLOBIN 9.9 g/dL (12.0-16.0); LYMPH # 1.8 K/uL (1.0-4.3); LYMPH % 27.7 % (20.0-40.0); MEAN CELL VOLUME 91.2 fl (81.0-99.0); MEAN CORPUSCULAR HEMOGLOBIN 30.1 pg (27.0-31.0); MEAN PLATELET VOLUME 8.7 fl (7.2-11.7); MONO # 0.6 K/uL (0.0-0.8); MONO % 8.9 % (0.0-10.0); NEUT # 3.7 K/uL (1.8-7.0); NRBC % 0.3 % (0.0-0.0); RBC 3.3 Mil/uL (3.80-5.20); RED CELL DISTRIBUTION WIDTH 14.3 % (11.5-14.5); WHITE BLOOD COUNT 6.6 K/uL (4.8-10.8)
[2017-03-29 12:31] LABS: ALB/GLOB RATIO 0.9 (1.0-2.1); ALBUMIN 3.7 g/dL (3.5-5.0); CALCIUM 8.6 mg/dL (8.4-10.2)
--- NOTE | 2017-03-29 14:47 | CP.PCM.PCO ---
Assessment/Plan - Assessment/Plan Assessment (Free Text): Pt stable, states she wants surgery done to fix her arm. Discussed with Dr. Gentile, he has reviewed all imaging and surgery to be done as outpatient. Pt will be dc'd to rehab and will f/u with Dr. Gentile. Pt verbalized understanding. Discussed with Dr. Damico, pt cleared for d/c to [facility] , he will follow pt.
[2017-03-29 17:37] VITALS: BP 109/70; PULSE 102; RESP 18; TEMP 98.2; O2SAT 99
--- NOTE | 2017-03-29 20:36 | CP.PCM.PN ---
Subjective - Date & Time of Evaluation Date of Evaluation: 03/29/17 Time of Evaluation: 11:45 - Subjective Subjective: 86 yo F presents with right displaced humeral neck fx Pt seen and examined at bedside, pt comfortable in bed, in NAD Pt's symptoms are unchanged since previous exam, pt states pain has improved and is tolerable Pt denies any SOB, chest pain, N/V/D, numbness/tingling RUE Objective - Vital Signs/Intake and Output Vital Signs (last 24 hours): Temp Pulse Resp BP Pulse Ox 98.2 F 102 H 18 109/70 99 03/29/17 16:43 03/29/17 16:43 03/29/17 16:43 03/29/17 16:43 03/29/17 16:43 - Labs Labs: 03/29/17 11:10 03/29/17 11:10 PT 12.5 Seconds (9.8-13.1) 03/26/17 05:20 INR 1.1 (0.9-1.2) 03/26/17 05:20 APTT 23.7 Seconds (25.6-37.1) L 03/26/17 05:20 - Constitutional Appears: Well, No Acute Distress - Respiratory Exam Respiratory Exam: Clear to Ausculation Bilateral, NORMAL BREATHING PATTERN - Cardiovascular Exam Cardiovascular Exam: REGULAR RHYTHM, RRR - Extremities Exam Additional comments: RUE: Brace in place +ttp proximal humerus ROM limited due to pain Arm soft and compressible, no sign of compartment syndrome N/V intact distally Pt has full and active ROM all digits, right hand Radial and ulna pulses wnl Assessment and Plan - Assessment and Plan (Free Text) Assessment: 86 yo F presents with right displaced humeral neck fx Plan: CT right shoulder reviewed- reveals right comminuted displaced humeral neck fx extending thru lesser tuberosity Pt instructed to continue use of RUE brace Pt will remain NWB RUE Pain Control Pt to f/u as outpt for further evaluation and tx
--- NOTE | 2017-03-29 20:43 | CP.PCM.DIS ---
Provider - Provider Date of Admission: 03/25/17 15:08 Attending physician: Melinda Damico MD Diagnosis - Discharge Diagnosis (1) Falls frequently Status: Acute Priority: High (2) Humeral surgical neck fracture Status: Acute Priority: High (3) Hypertension Status: Chronic Priority: Medium (4) Asthma Status: Chronic Priority: Low Hospital Course - Lab Results Lab Results: Most Recent Lab Values WBC 6.6 K/uL (4.8-10.8) 03/29/17 11:10 RBC 3.30 Mil/uL (3.80-5.20) L 03/29/17 11:10 Hgb 9.9 g/dL (12.0-16.0) L 03/29/17 11:10 Hct 30.0 % (34.0-47.0) L 03/29/17 11:10 MCV 91.2 fl (81.0-99.0) D 03/29/17 11:10 MCH 30.1 pg (27.0-31.0) 03/29/17 11:10 MCHC 33.0 g/dL (33.0-37.0) 03/29/17 11:10 RDW 14.3 % (11.5-14.5) 03/29/17 11:10 Plt Count 274 K/uL (130-400) 03/29/17 11:10 MPV 8.7 fl (7.2-11.7) 03/29/17 11:10 Neut % (Auto) 56.0 % (50.0-75.0) 03/29/17 11:10 Lymph % (Auto) 27.7 % (20.0-40.0) 03/29/17 11:10 [place] % (Auto) 8.9 % (0.0-10.0) 03/29/17 11:10 Eos % (Auto) 6.5 % (0.0-4.0) H 03/29/17 11:10 Baso % (Auto) 0.9 % (0.0-2.0) 03/29/17 11:10 Neut # 3.7 K/uL (1.8-7.0) 03/29/17 11:10 Lymph # 1.8 K/uL (1.0-4.3) 03/29/17 11:10 [place] # 0.6 K/uL (0.0-0.8) 03/29/17 11:10 Eos # 0.4 K/uL (0.0-0.7) 03/29/17 11:10 Baso # 0.1 K/uL (0.0-0.2) 03/29/17 11:10 PT 12.5 Seconds (9.8-13.1) 03/26/17 05:20 INR 1.1 (0.9-1.2) 03/26/17 05:20 APTT 23.7 Seconds (25.6-37.1) L 03/26/17 05:20 Sodium 141 mmol/l (132-148) 03/29/17 11:10 Potassium 4.1 MMOL/L (3.6-5.0) 03/29/17 11:10 Chloride 104 mmol/L (98-107) 03/29/17 11:10 Carbon Dioxide 23 mmol/L (22-30) 03/29/17 11:10 Anion Gap 18 (10-20) 03/29/17 11:10 BUN 23 mg/dl (7-17) H 03/29/17 11:10 Creatinine 1.2 mg/dl (0.7-1.2) 03/29/17 11:10 Est GFR ( Amer) 51 03/29/17 11:10 Est GFR (Non-Af Amer) 42 03/29/17 11:10 Random Glucose 125 mg/dL (65-105) H 03/29/17 11:10 Calcium 8.6 mg/dL (8.4-10.2) 03/29/17 11:10 Total Bilirubin 0.8 mg/dl (0.2-1.3) 03/29/17 11:10 AST 45 U/L (14-36) H 03/29/17 11:10 ALT 32 U/L (9-52) 03/29/17 11:10 Alkaline Phosphatase 77 U/L (38-126) 03/29/17 11:10 Total Protein 7.6 G/DL (6.3-8.2) 03/29/17 11:10 Albumin 3.7 g/dL (3.5-5.0) 03/29/17 11:10 Globulin 3.9 gm/dL (2.2-3.9) 03/29/17 11:10 Albumin/Globulin Ratio 0.9 (1.0-2.1) L 03/29/17 11:10 TSH 3rd Generation 1.64 mIU/ML (0.46-4.68) 03/26/17 05:20 Urine Color Yellow (YELLOW) 03/25/17 16:45 Urine Clarity Slighty-cloudy (Clear) 03/25/17 16:45 Urine pH 5.0 (5.0-8.0) 03/25/17 16:45 Ur Specific [place] 1.020 (1.003-1.030) 03/25/17 16:45 Urine Protein 100 mg/dL (NEGATIVE) 03/25/17 16:45 Urine Glucose (UA) Neg mg/dL (Normal) 03/25/17 16:45 Urine Ketones 20 mg/dL (NEGATIVE) 03/25/17 16:45 Urine Blood Small (NEGATIVE) 03/25/17 16:45 Urine Nitrate Negative (NEGATIVE) 03/25/17 16:45 Urine Bilirubin Negative (NEGATIVE) 03/25/17 16:45 Urine Urobilinogen 0.2-1.0 mg/dL (0.2-1.0) 03/25/17 16:45 Ur Leukocyte Esterase Neg [place]armila/uL (Negative) 03/25/17 16:45 Urine RBC (Auto) 4 /hpf (0-3) H 03/25/17 16:45 Urine Microscopic WBC 2 /hpf (0-5) 03/25/17 16:45 Ur Squamous Epith Cells 4 /hpf (0-5) 03/25/17 16:45 Hyaline Casts 11-20 /hpf (0-2) H 03/25/17 16:45 Granular Casts (Auto) 19 /lpf (0-1) 03/25/17 16:45 - Hospital Course Hospital Course: Patient was admitted for R humeral head fracture s/p fall at home. Patient has had multiple falls at home. Pt was seen by [employer] tech and cleared to have surgery of the right arm. Pt was seen by orthopedic MD, patient was undecided about having surgery. Per orthopedic MD, surgery to be done as outpatient. Patient unsafe to live by herself at this time due to multiple falls. Pt requires ABE for gait training and strengthening. Patient to continue to wear arm sling to immobilize her right arm. Pt will be discharged to [facility] and will f/ u with orthopedic surgeon. Discharge Exam - Head Exam Head Exam: ATRAUMATIC - Neck Exam Neck exam: Full Rom - Respiratory Exam Respiratory Exam: Clear to PA & Lateral, NORMAL BREATHING PATTERN - Cardiovascular Exam Cardiovascular Exam: REGULAR RHYTHM, +S1, +S2 - GI/Abdominal Exam GI & Abdominal Exam: Normal Bowel Sounds - Extremities Exam Extremities exam: joint swelling (right shoulder) - Back Exam Additional comments: limited ROM right arm - Neurological Exam Neurological exam: Alert, Oriented x3 - Psychiatric Exam Psychiatric exam: Normal Affect, Normal Mood - Skin Skin Exam: Dry, Normal Color Discharge Plan - Discharge Medications Prescriptions: traMADol [Ultram] 50 mg PO Q6 #20 tab - Follow Up Plan Condition: FAIR Disposition: REHAB FACILITY/REHAB UNIT Instructions: Shoulder Abduction Pillow (DC)
--- NOTE | 2017-03-30 15:31 | PQF GENQUE ---
Dr. Damico ER Physician Documentation Report documented asthma exacerbation. After study was person admitted with a diagnosis of asthma exacerbation? This form is a permanent part of the medical record Clarification of your documentation is requested to better reflect the severity of illness and intensity of treatment of your patient. Indicators present [] Specify: [] [] Specify: [] [] Specify: [] [] Specify: [] Location in the medical record that reflects the above clinical findings: [] Treatment Provided: [] PHYSICIAN'S RESPONSE Based on your medical judgment of the clinical indicators outlined above please clarify the following: [X] Practitioner response: H/o Asthma, No Asthma exacerbation [] If unable to determine, please check the box, sign and date. Present On Admission (POA) Indicator: [X] Present at the time of admission [] Not present at the time of admission [] Clinically Undetermined In responding to this query, please exercise your independent professional judgment. The fact that a question is asked does not imply that any particular answer is desired or expected. Thank you for your clarification on this documentation. If you have any questions please call:[ ] * Thank you, [ ]Tamiko Condon hand molder and caster [facility]
== END 2017-03-29 20:20 | DRG 563 ==
LOC: H.ER 11:41 → H.ERHOLD 15:08 → H.MEDSURG1 20:54
PROVIDERS: ADMIT Internal Medicine; ATTEND Internal Medicine
DX: S42.211A Unspecified displaced fracture of surgical neck of right humerus, initial encounter for closed fracture (principal); E86.0 Dehydration; D64.9 Anemia, unspecified; I10 Essential (primary) hypertension; M85.80 Other specified disorders of bone density and structure, unspecified site; J45.909 Unspecified asthma, uncomplicated; W19.XXXA Unspecified fall, initial encounter; Y92.009 Unspecified place in unspecified non-institutional (private) residence as the place of occurrence of the external cause; Z91.81 History of falling

== ENCOUNTER 2017-12-17 16:20 | Inpatient (IN) | payer OTHER ==
[2017-12-17 16:20] VITALS: BMI 27.3
[2017-12-17] MEDS ORDERED: Albuterol-Ipratrop 3 mg / 0.5 (3 ml) UD INH STA (17:17)
[2017-12-17] MEDS ORDERED: Albuterol-Ipratrop 3 mg / 0.5 (3 ml) UD ONE (17:22)
--- NOTE | 2017-12-17 17:49 | RAD ---
Date of service: 12/17/2017 HISTORY: sob COMPARISON: No prior. FINDINGS: LUNGS: No active pulmonary disease. PLEURA: No significant pleural effusion identified, no pneumothorax apparent. CARDIOVASCULAR: Atherosclerotic calcifications identified primarily aortic arch. No radiographic findings to suggest acute or significant cardiovascular disease. OSSEOUS STRUCTURES: No significant abnormalities. Stable posttraumatic changes right shoulder VISUALIZED UPPER ABDOMEN: Normal. OTHER FINDINGS: None. IMPRESSION: No active disease. No significant interval change compared to the prior examination(s).
--- NOTE | 2017-12-17 17:54 | ED PDOC ---
HPI: Back Time Seen by Provider: 12/17/17 16:45 Chief Complaint (Nursing): Shortness Of Breath Chief Complaint (Provider): Back Pain History Per: Patient History/Exam Limitations: no limitations Onset/Duration Of Symptoms: Persistent (x3 months) Current Symptoms Are (Timing): Still Present Exacerbating Factor(s): Movement, Other (cough) Additional Complaint(s): Kirsty Cat, an 87 year old female with a past medical history of asthma, presents to the ED complaining of lower back pain starting 3 months ago associated with shortness of breath and chest tightness. Patient states pain worsen with movement and coughing and has become worse over the past week. She notes symptoms are consistent with her asthma. Additionally, she experiences constipation, however, it is a chronic condition. Otherwise, she denies fever, chills, sputum production, or leg swelling. PCP: Dr. Lui Saleem Past Medical History Reviewed: Historical Data, Nursing Documentation, Vital Signs Vital Signs: Last Vital Signs Temp 98.3 F 12/17/17 16:31 Pulse 81 12/17/17 16:31 Resp 18 12/17/17 17:02 BP 154/75 H 12/17/17 16:31 Pulse Ox 96 12/17/17 17:02 - Medical History PMH: Asthma, Fractures (Right humerus), HTN - Surgical History Surgical History: No Surg Hx - Family History Family History: States: No Known Family Hx - Social History Current smoker - smoking cessation education provided: No Alcohol: None - Home Medications Home Medications: Ambulatory Orders Medication Instructions Recorded RX: Albuterol Sulfate [Proair Hfa] 2 puff IH Q4H PRN 03/25/17 RX: Gabapentin [Neurontin] 300 mg PO DAILY 03/25/17 RX: Metoprolol Succinate XL 25 mg PO DAILY 03/25/17 [Toprol XL] RX: Multivitamin [Multi-Vitamin 1 tab PO DAILY 03/25/17 Daily] RX: amLODIPine [Norvasc] 10 mg PO DAILY 03/25/17 RX: traMADol [Ultram] 50 mg PO Q6 #20 tab 03/29/17 - Allergies Allergies/Adverse Reactions: Allergies Allergy/AdvReac Type Severity Reaction Status Date / Time No Known Allergies Allergy Verified 12/17/17 16:31 Review of Systems ROS Statement: Except As Marked, All Systems Reviewed And Found Negative Constitutional: Negative for: Fever, Chills Respiratory: Positive for: Cough, Shortness of Breath, Other (chest tightness). Negative for: Sputum Gastrointestinal: Positive for: Constipation (chronic) Musculoskeletal: Positive for: Back Pain (lower). Negative for: Other (bilateral leg swelling) Physical Exam - Reviewed Nursing Documentation Reviewed: Yes Vital Signs Reviewed: Yes - Physical Exam Appears: Positive for: Non-toxic, In Acute Distress (moderate pain) Head Exam: Positive for: ATRAUMATIC, NORMOCEPHALIC Skin: Positive for: Warm, Dry Eye Exam: Positive for: EOMI, PERRL ENT: Negative for: Pharyngeal Erythema, Tonsillar Exudate Neck: Positive for: Painless ROM, Supple Cardiovascular/Chest: Positive for: Regular Rate, Rhythm. Negative for: Murmur Respiratory: Positive for: Rhonchi, Wheezing (diffuse upon expiration ), Respiratory Distress Gastrointestinal/Abdominal: Positive for: Soft. Negative for: Tenderness Back: Positive for: Vertebral Tenderness (diffuse to lumbar on palpation; distractible). Negative for: Other (straight leg raise bilaterally) Extremity: Positive for: Normal ROM, Other (5/5 strength to LE with light touch sensation intact). Negative for: Pedal Edema Lymphatic: Negative for: Adenopathy Neurologic/Psych: Positive for: Alert. Negative for: Motor/Sensory Deficits - Laboratory Results Result Diagrams: 12/17/17 17:54 12/17/17 17:54 - ECG O2 Sat by Pulse Oximetry: 96 (RA) Pulse Ox Interpretation: Normal Medical Decision Making Medical Decision Making: Time: 17:06 Initial Impression: Back pain and asthma exacerbation Initial Plan: --CT ABD/pelvis without contrast --CT lumbar spine w/o contrast --EKG --Labs --Chest X-Ray --Urine Culture --Blood Culture 17:18 Chest X-Ray FINDINGS: LUNGS: No active pulmonary disease. PLEURA: No significant pleural effusion identified, no pneumothorax apparent. CARDIOVASCULAR: Atherosclerotic calcifications identified primarily aortic arch. No radiographic findings to suggest acute or significant cardiovascular disease. OSSEOUS STRUCTURES: No significant abnormalities. Stable posttraumatic changes right shoulder VISUALIZED UPPER ABDOMEN: Normal. OTHER FINDINGS: None. IMPRESSION: No active disease. No significant interval change compared to the prior examination(s). 17:32 CT ABD/pelvis FINDINGS: LOWER THORAX: Unremarkable. LIVER: Unremarkable. No gross lesion or ductal dilatation. GALLBLADDER AND BILE DUCTS: Unremarkable. PANCREAS: Unremarkable. No gross lesion or ductal dilatation. SPLEEN: Unremarkable. ADRENALS: Unremarkable. No mass. KIDNEYS AND URETERS: Unremarkable. No hydronephrosis. No solid mass. VASCULATURE: Tortuous thoracic aorta. 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 Moderate atherosclerotic calcification or mural plaque present. BOWEL: Thickening of the wall of the ascending colon and rectosigmoid region. In addition findings of ileitis suspected. . Findings likely represent mild enterocolitis. No evidence of mechanical obstruction. APPENDIX: Unremarkable. Normal appendix. PERITONEUM: Unremarkable. No free fluid. No free air. LYMPH NODES: Unremarkable. No enlarged lymph nodes. BLADDER: No focal bladder wall abnormalities. Elevated Hounsfield units approximating 50 are nonspecific finding. This could represent an unusual form of cystitis. There is no history of prior intravenous contrast injection REPRODUCTIVE: Unremarkable. BONES: No acute fracture. OTHER FINDINGS: None. IMPRESSION: Enterocolitis without mechanical obstruction. Compression deformities of multiple thoracolumbar vertebral bodies. 17:[address] FINDINGS: VERTEBRAE: Compression deformity of the L3 vertebral body. DISCS/SPINAL CANAL/NEURAL FORAMINA: L1-2: Unremarkable. L2-3: Producing mild canal stenosis. L3-4: Annular bulge at L3-4 producing moderate canal stenosis. L4-5: Mild bulging annulus is fibrosis. Findings extend into the exiting neural foramen bilaterally. Vacuum disc phenomenon and disc space narrowing. L5-S1: Central disc protrusion into the spinal canal. The findings extend into the exiting neural foramen bilaterally. PARASPINAL SOFT TISSUES: Unremarkable. OTHER FINDINGS: None. IMPRESSION: Diffuse osteopenia. Multilevel degenerative changes. This includes annular bulging and central herniated disc the latter identified at L5-S1. Spinal stenosis most notable at L2-3 and L3-4. Loss of height L3 vertebral body likely old and osteopenic compression fracture. Time: 1918 --Upon re-evaluation, patient continues to report wheezing, shortness of breath and back pain. Patient will be hospitalized for continual management. ALVINA [facility] Service Scribe Attestation: Documented by Denny Diaz acting as a scribe for Ofelia Arvizu MD Provider Scribe Attestation: All medical record entries made by the Scribe were at my direction and personally dictated by me. I have reviewed the chart and agree that the record accurately reflects my personal performance of the history, physical exam, medical decision making, and the department course for this patient. I have also personally directed, reviewed, and agree with the discharge instructions and disposition. Disposition - Clinical Impression Clinical Impression: Asthma exacerbation, Intractable back pain Counseled Patient/Family Regarding: Studies Performed, Diagnosis - Disposition Disposition Time: 19:00 Condition: FAIR - Pt Status Changed To: Hospital Disposition Of: Observation - POA Present On Arrival: None
--- NOTE | 2017-12-17 17:56 | CT ---
Date of service: 12/17/2017 PROCEDURE: CT Abdomen and Pelvis without intravenous contrast HISTORY: back pain COMPARISON: None. TECHNIQUE: Unenhanced. Neither IV nor oral contrast administered Radiation dose: Total exam DLP = 666.53 mGy-cm. This CT exam was performed using one or more of the following dose reduction techniques: Automated exposure control, adjustment of the mA and/or kV according to patient size, and/or use of iterative reconstruction technique. FINDINGS: LOWER THORAX: Unremarkable. LIVER: Unremarkable. No gross lesion or ductal dilatation. GALLBLADDER AND BILE DUCTS: Unremarkable. PANCREAS: Unremarkable. No gross lesion or ductal dilatation. SPLEEN: Unremarkable. ADRENALS: Unremarkable. No mass. KIDNEYS AND URETERS: Unremarkable. No hydronephrosis. No solid mass. VASCULATURE: Tortuous thoracic aorta. 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 Moderate atherosclerotic calcification or mural plaque present. BOWEL: Thickening of the wall of the ascending colon and rectosigmoid region. In addition findings of ileitis suspected. . Findings likely represent mild enterocolitis. No evidence of mechanical obstruction. APPENDIX: Unremarkable. Normal appendix. PERITONEUM: Unremarkable. No free fluid. No free air. LYMPH NODES: Unremarkable. No enlarged lymph nodes. BLADDER: No focal bladder wall abnormalities. Elevated Hounsfield units approximating 50 are nonspecific finding. This could represent an unusual form of cystitis. There is no history of prior intravenous contrast injection REPRODUCTIVE: Unremarkable. BONES: No acute fracture. OTHER FINDINGS: None. IMPRESSION: Enterocolitis without mechanical obstruction. Compression deformities of multiple thoracolumbar vertebral bodies.
--- NOTE | 2017-12-17 18:00 | CT ---
Date of service: 12/17/2017 PROCEDURE: CT Lumbar Spine without contrast HISTORY: Back Pain. No history of recent/ related trauma provided COMPARISON: December 17, 2017 CT abdomen and pelvis TECHNIQUE: Axial computed tomography images were obtained of the lumbar spine without the use of intravenous contrast. Coronal and sagittal reformatted images were created and reviewed. Radiation dose: Total exam DLP = 826.79 mGy-cm. This CT exam was performed using one or more of the following dose reduction techniques: Automated exposure control, adjustment of the mA and/or kV according to patient size, and/or use of iterative reconstruction technique. FINDINGS: VERTEBRAE: Compression deformity of the L3 vertebral body. DISCS/SPINAL CANAL/NEURAL FORAMINA: L1-2: Unremarkable. L2-3: Producing mild canal stenosis. L3-4: Annular bulge at L3-4 producing moderate canal stenosis. L4-5: Mild bulging annulus is fibrosis. Findings extend into the exiting neural foramen bilaterally. Vacuum disc phenomenon and disc space narrowing. L5-S1: Central disc protrusion into the spinal canal. The findings extend into the exiting neural foramen bilaterally. PARASPINAL SOFT TISSUES: Unremarkable. OTHER FINDINGS: None. IMPRESSION: Diffuse osteopenia. Multilevel degenerative changes. This includes annular bulging and central herniated disc the latter identified at L5-S1. Spinal stenosis most notable at L2-3 and L3-4. Loss of height L3 vertebral body likely old and osteopenic compression fracture.
[2017-12-17 18:02] LABS: BASO % 0.2 % (0.0-2.0); EOS % 12.3 % (0.0-4.0); HEMOGLOBIN 10.3 g/dL (12.0-16.0); LYMPH # 1.4 K/uL (1.0-4.3); LYMPH % 16.1 % (20.0-40.0); MEAN CELL VOLUME 91.1 fl (81.0-99.0); MEAN CORPUSCULAR HEMOGLOBIN 30.1 pg (27.0-31.0); MEAN PLATELET VOLUME 8.1 fl (7.2-11.7); MONO # 0.5 K/uL (0.0-0.8); MONO % 6.3 % (0.0-10.0); NEUT # 5.5 K/uL (1.8-7.0); NEUT % 65.1 % (50.0-75.0); RBC 3.42 Mil/uL (3.80-5.20); RED CELL DISTRIBUTION WIDTH 14.3 % (11.5-14.5); WHITE BLOOD COUNT 8.5 K/uL (4.8-10.8)
[2017-12-17 18:31] LABS: ALBUMIN 3.9 g/dL (3.5-5.0); CALCIUM 8.9 mg/dL (8.4-10.2); TROPONIN I 0.015 ng/mL (0.00-0.120)
[2017-12-17 18:48] LABS: SQUAMOUS EPITHIAL 1 /hpf (0-5); URINE BACTERIA RARE (<OCC); URINE BILIRUBIN NEGATIVE (NEGATIVE); URINE BLOOD NEGATIVE (NEGATIVE); URINE CLARITY CLEAR (Clear); URINE COLOR YELLOW (YELLOW); URINE GLUCOSE (UA) NEG (Normal); URINE LEUKOCYTE ESTERASE SMALL Leu/uL (Negative); URINE PROTEIN 30 mg/dL (NEGATIVE); URINE UROBILINOGEN 0.2-1.0 mg/dL (0.2-1.0)
[2017-12-17] MEDS: Sodium Chloride 0.45% 1,000 ML IV SCH (21:44)
[2017-12-17] MEDS: MethylPREDNISolone 40 mg Vial IVP SCH (21:47)
[2017-12-17] MEDS: Metoprolol Succinate 25 mg XL Tab PO SCH (23:08)
[2017-12-18] MEDS: Albuterol-Ipratrop 3 mg / 0.5 (3 ml) UD INH SCH ×7 (00:44→23:18)
[2017-12-18] MEDS ORDERED: methylPREDNISolone 80 MG in Sodium Chloride 0.9% 50 ML IVPB SCH (01:00)
[2017-12-18] MEDS: MethylPREDNISolone 40 mg Vial IVP SCH ×2 (04:50→12:56)
[2017-12-18] MEDS: Sodium Chloride 0.45% 1,000 ML IV SCH ×2 (08:47→17:31)
[2017-12-18] MEDS: Enoxaparin 40 mg Syringe SC SCH (08:56)
[2017-12-18] MEDS: Metoprolol Succinate 25 mg XL Tab PO SCH (08:58)
[2017-12-18] MEDS ORDERED: Patient's Own Med (Multivitamin [Multi-Vitamin Daily] 1 TAB) PO SCH (09:00)
[2017-12-18] MEDS: Multivitamin With Minerals Tab PO SCH (09:10)
--- NOTE | 2017-12-18 12:07 | CARD ---
APPROVED REPORT Date of service: 12/17/2017 EKG Measurement Heart [id number] <Conclusion> Sinus rhythm with occasional premature ventricular complexes Left axis deviation Possible inferior infarct, age undetermined Abnormal ECG
[2017-12-18] MEDS ORDERED: Benzocaine/Menthol (Cepacol) Lozenge PO PRN (15:04)
[2017-12-18] MEDS ORDERED: Albuterol-Ipratrop 3 mg / 0.5 (3 ml) UD INH STA (19:07)
[2017-12-19] MEDS: Albuterol-Ipratrop 3 mg / 0.5 (3 ml) UD INH SCH ×6 (05:42→23:32)
[2017-12-19] MEDS: Multivitamin With Minerals Tab PO SCH (08:32)
[2017-12-19] MEDS: Metoprolol Succinate 25 mg XL Tab PO SCH (08:32)
[2017-12-19] MEDS: Enoxaparin 40 mg Syringe SC SCH (08:33)
[2017-12-19] MEDS: Lidocaine 5% Patch TD SCH (12:07)
--- NOTE | 2017-12-19 12:25 | CP.PCM.HP ---
Past Patient History - Past Medical History & Family History Past Medical History?: Yes - Past Social History Alcohol: None - CARDIAC Hx Hypertension: Yes - PULMONARY Hx Asthma: Yes - NEUROLOGICAL Hx Neurological Disorder: Yes - HEENT Hx HEENT Problems: Yes - RENAL Hx Chronic Kidney Disease: Yes - ENDOCRINE/METABOLIC Hx Endocrine Disorders: No - HEMATOLOGICAL/ONCOLOGICAL Hx Blood Disorders: No Hx AIDS: No Hx Human Immunodeficiency Virus (HIV): No - INTEGUMENTARY Hx Dermatological Problems: No - MUSCULOSKELETAL/RHEUMATOLOGICAL Hx Fractures: Yes (Right humerus) - GASTROINTESTINAL Hx Gastrointestinal Disorders: Yes Hx Constipation: Yes (occasional) - GENITOURINARY/GYNECOLOGICAL Hx Genitourinary Disorders: No - PSYCHIATRIC Hx Psychophysiologic Disorder: No Hx Substance Use: No - SURGICAL HISTORY Hx Surgeries: No - ANESTHESIA Hx Anesthesia: No Hx Anesthesia Reactions: No Hx Malignant Hyperthermia: No Meds Allergies/Adverse Reactions: Allergies Allergy/AdvReac Type Severity Reaction Status Date / Time No Known Allergies Allergy Verified 12/17/17 16:31 Results - Vital Signs Recent Vital Signs: Last Vital Signs Temp 98.3 F 12/19/17 08:07 Pulse 93 H 12/19/17 08:07 Resp 20 12/19/17 08:07 BP 118/67 12/19/17 08:07 Pulse Ox 94 L 12/19/17 08:07 - Labs Result Diagrams: 12/17/17 17:54 12/17/17 17:54
--- NOTE | 2017-12-19 12:25 | CP.PCM.PN ---
Subjective - Date & Time of Evaluation Date of Evaluation: 12/19/17 Time of Evaluation: 11:55 Objective - Vital Signs/Intake and Output Vital Signs (last 24 hours): Temp Pulse Resp BP Pulse Ox 98.3 F 93 H 20 118/67 94 L 12/19/17 08:07 12/19/17 08:07 12/19/17 08:07 12/19/17 08:07 12/19/17 08:07 - Medications Medications: Current Medications Albuterol/Ipratropium (Duoneb 3 Mg/0.5 Mg (3 Ml) Ud) 3 ml INH RQ4 [facility] Last Admin: 12/19/17 11:05 Dose: 3 ml Amlodipine Besylate (Norvasc) 10 mg PO DAILY [facility] Last Admin: 12/19/17 08:32 Dose: 10 mg Benzocaine/Menthol (Cepacol Sore Throat) 1 rufus PO Q6 PRN PRN Reason: Sore Throat Last Admin: 12/18/17 15:15 Dose: 1 rufus Docusate Sodium (Colace) 100 mg PO BID [facility] Last Admin: 12/19/17 12:10 Dose: 100 mg Enoxaparin Sodium (Lovenox) 40 mg SC DAILY [facility]; Protocol Last Admin: 12/19/17 08:33 Dose: 40 mg Gabapentin (Neurontin) 300 mg PO DAILY [facility] Last Admin: 12/19/17 08:32 Dose: 300 mg Lidocaine (Lidoderm) 1 ea TD DAILY [facility] Last Admin: 12/19/17 12:07 Dose: 1 ea Methylprednisolone (Solu-Medrol) 80 mg IVP Q8H [facility] Last Admin: 12/19/17 07:03 Dose: 80 mg Metoprolol Succinate (Toprol Xl) 25 mg PO DAILY [facility] Last Admin: 12/19/17 08:32 Dose: 25 mg Multivitamins/Minerals (Therapeutic-M Tab) 1 tab PO DAILY [facility] Last Admin: 12/19/17 08:32 Dose: 1 tab Tramadol HCl (Ultram) 50 mg PO Q6 PRN PRN Reason: Pain, moderate (4-7) Last Admin: 12/19/17 11:45 Dose: 50 mg - Labs Labs: 12/17/17 17:54 12/17/17 17:54
[2017-12-20] MEDS: Albuterol-Ipratrop 3 mg / 0.5 (3 ml) UD INH SCH ×6 (04:47→23:49)
[2017-12-20] MEDS: Lidocaine 5% Patch TD SCH (09:17)
[2017-12-20] MEDS: Multivitamin With Minerals Tab PO SCH (09:21)
[2017-12-20] MEDS: Metoprolol Succinate 25 mg XL Tab PO SCH (09:21)
[2017-12-20] MEDS: Enoxaparin 40 mg Syringe SC SCH (09:22)
[2017-12-20] MEDS: Pantoprazole 40 mg EC Tab PO SCH (12:12)
[2017-12-20] MEDS: Docusate-Senna 50 mg-8.6 mg Tab PO SCH (22:38)
[2017-12-21] MEDS: Albuterol-Ipratrop 3 mg / 0.5 (3 ml) UD INH SCH ×5 (04:34→19:55)
[2017-12-21 06:40] LABS: HEMOGLOBIN 9.6 g/dL (12.0-16.0); MEAN CELL VOLUME 90.6 fl (81.0-99.0); MEAN CORPUSCULAR HEMOGLOBIN 30.7 pg (27.0-31.0); MEAN CORPUSCULAR HGB CONC 33.9 g/dL (33.0-37.0); RBC 3.14 Mil/uL (3.80-5.20); RED CELL DISTRIBUTION WIDTH 14.3 % (11.5-14.5); WHITE BLOOD COUNT 10.8 K/uL (4.8-10.8)
[2017-12-21 06:57] LABS: CALCIUM 9.1 mg/dL (8.4-10.2)
[2017-12-21] MEDS: Multivitamin With Minerals Tab PO SCH (09:20)
[2017-12-21] MEDS: Enoxaparin 40 mg Syringe SC SCH (09:22)
[2017-12-21] MEDS: Metoprolol Succinate 25 mg XL Tab PO SCH (09:24)
[2017-12-21] MEDS: Pantoprazole 40 mg EC Tab PO SCH (09:24)
[2017-12-21] MEDS: Lidocaine 5% Patch TD SCH (09:26)
--- NOTE | 2017-12-21 12:51 | CP.PCM.PN ---
Subjective - Date & Time of Evaluation Date of Evaluation: 12/20/17 Time of Evaluation: 17:35 Objective - Vital Signs/Intake and Output Vital Signs (last 24 hours): Temp Pulse Resp BP Pulse Ox 98 F 73 18 158/69 H 100 12/21/17 08:44 12/21/17 09:24 12/21/17 08:44 12/21/17 09:24 12/21/17 08:44 - Medications Medications: Current Medications Albuterol/Ipratropium (Duoneb 3 Mg/0.5 Mg (3 Ml) Ud) 3 ml INH RQ4 [facility] Last Admin: 12/21/17 07:51 Dose: 3 ml Amlodipine Besylate (Norvasc) 10 mg PO DAILY [facility] Last Admin: 12/21/17 09:21 Dose: 10 mg Benzocaine/Menthol (Cepacol Sore Throat) 1 rufus PO Q6 PRN PRN Reason: Sore Throat Last Admin: 12/18/17 15:15 Dose: 1 rufus Docusate Sodium (Colace) 100 mg PO BID [facility] Last Admin: 12/21/17 09:20 Dose: 100 mg Enoxaparin Sodium (Lovenox) 40 mg SC DAILY [facility]; Protocol Last Admin: 12/21/17 09:22 Dose: 40 mg Gabapentin (Neurontin) 300 mg PO DAILY [facility] Last Admin: 12/21/17 09:22 Dose: 300 mg Lactulose (Enulose) 20 gm PO BID PRN PRN Reason: Constipation Last Admin: 12/21/17 09:21 Dose: 20 gm Lidocaine (Lidoderm) 1 ea TD DAILY [facility] Last Admin: 12/21/17 09:26 Dose: 1 ea Methylprednisolone (Solu-Medrol) 80 mg IVP Q8H [facility] Last Admin: 12/21/17 06:23 Dose: 80 mg Metoprolol Succinate (Toprol Xl) 25 mg PO DAILY [facility] Last Admin: 12/21/17 09:24 Dose: 25 mg Multivitamins/Minerals (Therapeutic-M Tab) 1 tab PO DAILY [facility] Last Admin: 12/21/17 09:20 Dose: 1 tab Pantoprazole Sodium (Protonix Ec Tab) 40 mg PO DAILY [facility] Last Admin: 12/21/17 09:24 Dose: 40 mg Senna/Docusate Sodium (Senokot S 50 Mg-8.6 Mg) 2 tab PO HS [facility] Last Admin: 12/20/17 22:38 Dose: 2 tab Tramadol HCl (Ultram) 50 mg PO Q6 PRN PRN Reason: Pain, moderate (4-7) Last Admin: 12/20/17 18:33 Dose: 50 mg - Labs Labs: 12/21/17 05:50 12/21/17 05:50
[2017-12-21] MEDS ORDERED: Acetylcysteine 10% 30 ML IH SCH (13:28)
[2017-12-21] MEDS ORDERED: Sodium Chloride 3% for Inhalation 4 ML VIAL.NEB IH PRN (13:39)
--- NOTE | 2017-12-21 15:08 | CP.PCM.CON ---
History of Present Illness - History of Present Illness History of Present Illness: CC: Asthma exacerbation. Pulmonary consult for a 87 y/o F, PMHx, Asthma, HTN, Fxs, brought [address] [facility] [place] for evaluation of moderate SOB, onset few days [employer], Pt using Albuterol at home with no relief. As per PT, SOB increased on DOA associated to wheezing, non productive cough, throat pain. Worsening symptoms: Chest tightness when coughing, also c/o of intermittent chronic low back pain, aching type, moderate to severity intensity 5-8:10, also worsening with cough (pain 2nd to spinal stenosis, herniated disk, L3 vertebral with old osteopenic compression Fx as per Lumbar CT), and c/o of R shoulder pain 2nd to old Neck Humerus Fx. as per Shoulder CT. Aggravated factor: Movements/change positions Pt denied; Fever, chills, n/v/d, abdominal pain, urinary symptoms, CP, palpitations, dizziness, syncope, sick contact. CXR: No active disease. Review of Systems - Constitutional Constitutional: Weakness - EENT Eyes: Requires Corrective Lenses Ears: Other (negative) Nose/Mouth/Throat: Other (throat pain) - Cardiovascular Cardiovascular: Other (negative) - Respiratory Respiratory: Cough, Dyspnea, Wheezing, Chest Congestion - Gastrointestinal Gastrointestinal: Other (negative) - Genitourinary Genitourinary: Urinary Incontinence - Musculoskeletal Musculoskeletal: Arthralgias, Back Pain, Other (shoulder pain) - Integumentary Integumentary: Other (negative) - Neurological Neurological: Other (negative) - Psychiatric Psychiatric: Other (negative) - Endocrine Endocrine: Other (negative) - Hematologic/Lymphatic Hematologic: Other (negative) Past Patient History - Past Medical History & Family History Past Medical History?: Yes Pertinent Family History: Unknown - Past Social History Smoking Status: Current Some Days Smoker Alcohol: None Drugs: Denies Home Situation {Lives}: Alone - CARDIAC Hx Cardiac Disorders: Yes Hx Hypertension: Yes - PULMONARY Hx Respiratory Disorders: Yes Hx Asthma: Yes - NEUROLOGICAL Hx Neurological Disorder: Yes - HEENT Hx HEENT Problems: Yes (wear eyeglasses) - RENAL Hx Chronic Kidney Disease: Yes - ENDOCRINE/METABOLIC Hx Endocrine Disorders: No - HEMATOLOGICAL/ONCOLOGICAL Hx Blood Disorders: No Hx AIDS: No Hx Human Immunodeficiency Virus (HIV): No - INTEGUMENTARY Hx Dermatological Problems: No - MUSCULOSKELETAL/RHEUMATOLOGICAL Hx Musculoskeletal Disorders: Yes Hx Fractures: Yes (Right humerus) - GASTROINTESTINAL Hx Gastrointestinal Disorders: Yes Hx Constipation: Yes (occasional) - GENITOURINARY/GYNECOLOGICAL Hx Genitourinary Disorders: Yes Hx Incontinence: Yes - PSYCHIATRIC Hx Psychophysiologic Disorder: No Hx Substance Use: No - SURGICAL HISTORY Hx Surgeries: No - ANESTHESIA Hx Anesthesia: No Hx Anesthesia Reactions: No Hx Malignant Hyperthermia: No Meds Allergies/Adverse Reactions: Allergies Allergy/AdvReac Type Severity Reaction Status Date / Time No Known Allergies Allergy Verified 12/17/17 16:31 - Medications Medications: Current Medications Acetylcysteine (Acetylcysteine 10% 10 Ml) 6 ml IH Q4 [facility] Albuterol/Ipratropium (Duoneb 3 Mg/0.5 Mg (3 Ml) Ud) 3 ml INH RQ4 [facility] Last Admin: 12/21/17 07:51 Dose: 3 ml Amlodipine Besylate (Norvasc) 10 mg PO DAILY [facility] Last Admin: 12/21/17 09:21 Dose: 10 mg Benzocaine/Menthol (Cepacol Sore Throat) 1 rufus PO Q6 PRN PRN Reason: Sore Throat Last Admin: 12/18/17 15:15 Dose: 1 rufus Budesonide (Pulmicort Respules) 0.5 mg INH RTID [facility] Docusate Sodium (Colace) 100 mg PO BID [facility] Last Admin: 12/21/17 09:20 Dose: 100 mg Enoxaparin Sodium (Lovenox) 40 mg SC DAILY [facility]; Protocol Last Admin: 12/21/17 09:22 Dose: 40 mg Gabapentin (Neurontin) 300 mg PO DAILY [facility] Last Admin: 12/21/17 09:22 Dose: 300 mg Guaifenesin (Mucinex La) 600 mg PO Q12 [facility] Lactulose (Enulose) 20 gm PO BID PRN PRN Reason: Constipation Last Admin: 12/21/17 09:21 Dose: 20 gm Lidocaine (Lidoderm) 1 ea TD DAILY [facility] Last Admin: 12/21/17 09:26 Dose: 1 ea Methylprednisolone (Solu-Medrol) 60 mg IVP Q8H [facility] Metoprolol Succinate (Toprol Xl) 25 mg PO DAILY [facility] Last Admin: 12/21/17 09:24 Dose: 25 mg Multivitamins/Minerals (Therapeutic-M Tab) 1 tab PO DAILY [facility] Last Admin: 12/21/17 09:20 Dose: 1 tab Pantoprazole Sodium (Protonix Ec Tab) 40 mg PO DAILY [facility] Last Admin: 12/21/17 09:24 Dose: 40 mg Senna/Docusate Sodium (Senokot S 50 Mg-8.6 Mg) 2 tab PO HS [facility] Last Admin: 12/20/17 22:38 Dose: 2 tab Tramadol HCl (Ultram) 50 mg PO Q6 PRN PRN Reason: Pain, moderate (4-7) Last Admin: 12/20/17 18:33 Dose: 50 mg Physical Exam - Constitutional Appears: No Acute Distress - Head Exam Head Exam: NORMAL INSPECTION - Eye Exam Eye Exam: PERRL - ENT Exam ENT Exam: Normal Exam - Neck Exam Neck exam: Positive for: Normal Inspection - Respiratory Exam Respiratory Exam: Decreased Breath Sounds (at bases), Wheezes (upon expiration) - Cardiovascular Exam Cardiovascular Exam: REGULAR RHYTHM - GI/Abdominal Exam GI & Abdominal Exam: Normal Bowel Sounds, Soft - Extremities Exam Additional comments: R arm contracted, unable to elevate and straightened - Back Exam Back exam: tenderness - Neurological Exam Neurological exam: Alert, Oriented x3 - Psychiatric Exam Psychiatric exam: Normal Mood - Skin Skin Exam: Normal Color, Warm Results - Vital Signs Recent Vital Signs: Last Vital Signs Temp 98 F 12/21/17 08:44 Pulse 73 12/21/17 09:24 Resp 18 12/21/17 08:44 BP 158/69 H 12/21/17 09:24 Pulse Ox 100 12/21/17 08:44 reviewed [email or web address] - Labs Result Diagrams: 12/21/17 05:50 12/21/17 05:50 Labs: Laboratory Results - last 24 hr 12/21/17 12/21/17 05:50 05:50 WBC 10.8 RBC 3.14 L Hgb 9.6 L Hct 28.4 L MCV 90.6 MCH 30.7 MCHC 33.9 RDW 14.3 Plt Count 291 Sodium 138 Potassium 5.0 Chloride 105 Carbon Dioxide 24 Anion Gap 14 BUN 42 H Creatinine 1.4 H Est GFR ( Amer) 43 Est GFR (Non-Af Amer) 35 Random Glucose 165 H Calcium 9.1 reviewed J.P. - Imaging and Cardiology Chest x-ray Status: Report reviewed by me (Leti) CT scan - abdomen Status: Report reviewed by me (Leti) CT scan - pelvis Status: Report reviewed by me (Leti) Additional comment: Lumbar Spine CT: Reviewed JPenny Assessment & Plan (1) Asthma exacerbation Status: Acute Priority: High - Assessment and Plan (Free Text) Plan: F/U Sputum C-S, continue Duoneb, Pulmicort, Solu-Medrol, Mucinex, Cepacol and rest of Tx. - Date & Time Date: 12/21/17 Time: 12:00
--- NOTE | 2017-12-21 15:36 | CP.PCM.CON ---
Addendum entered and electronically signed by Curtis Ochoa PA-C 12/22/17 09:56: R shoulder films: Accession No. : [id number] Patient Name / ID : SHELBY BELCHER / [id number] Exam Date : 12/21/2017 15:47:12 ( Approved ) Study Comment : Sex / Age : F / [id number] Creator : Daniela Carrillo MD Dictator : Daniela Carrillo MD Shoe Sewing Machine Operator And Tender : Pipe Organ Tuner And Repairer : Daniela Carrillo MD Approver2 : Report Date : 12/21/2017 16:38:24 My Comment : Date of service: 12/21/2017 PROCEDURE: Radiographs of the Right Shoulder HISTORY: R shoulder pain COMPARISON: CT right upper extremity from 03/25/2017 FINDINGS: BONES: There is diffuse bone demineralization. 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 JOINTS: Normal. Glenohumeral and acromioclavicular joints preserved. No osteoarthritis. SOFT TISSUES: Normal. OTHER FINDINGS: None. 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 No dislocation. -Continue with plan listed below Original Note: History of Present Illness - History of Present Illness History of Present Illness: Orthopedic consult: Dr. Gentile Patient is an 87 y/o RHD female with PMH of HTN, Asthma who was admitted for back pain and asthma exacerbation. Dr. Gentile was consulted for R shoulder pain. Patient has a history of a R humeral neck fracture in March [address] Gentile was consulted. She opted for conservative management at the time and followed up in his office. She underwent 2 months of physical therapy, however, her pain/stiffness/weakness never improved. She failed to follow up following that and has dealt with intermittent pain and dysfunction of her RUE. She has been predominantly using her LUE as a result. She has had no recent injury or trauma but complains of pain with ROM and stiffness. There is no pain when at rest. She denies numbness/tingling/radiation of pain. There is a small protrusion of her anterior shoulder which is tender to touch. She denies CP/SOB/N/V/D/fever/dysuria/melena. Review of Systems - Review of Systems All systems: reviewed and no additional remarkable complaints except Review of Systems: as per HPI Past Patient History - Past Medical History & Family History Past Medical History?: Yes Past Family History: Reviewed and not pertinent - Past Social History Smoking Status: Current Some Days Smoker Alcohol: None Drugs: Denies - CARDIAC Hx Hypertension: Yes - PULMONARY Hx Asthma: Yes - NEUROLOGICAL Hx Neurological Disorder: No - HEENT Hx HEENT Problems: No - RENAL Hx Chronic Kidney Disease: No - ENDOCRINE/METABOLIC Hx Endocrine Disorders: No - HEMATOLOGICAL/ONCOLOGICAL Hx Blood Disorders: No Hx AIDS: No Hx Human Immunodeficiency Virus (HIV): No - INTEGUMENTARY Hx Dermatological Problems: No - MUSCULOSKELETAL/RHEUMATOLOGICAL Hx Fractures: Yes (Right humerus) - GASTROINTESTINAL Hx Gastrointestinal Disorders: Yes Hx Constipation: Yes (occasional) - GENITOURINARY/GYNECOLOGICAL Hx Genitourinary Disorders: No - PSYCHIATRIC Hx Psychophysiologic Disorder: No Hx Substance Use: No - SURGICAL HISTORY Hx Surgeries: No - ANESTHESIA Hx Anesthesia: No Hx Anesthesia Reactions: No Hx Malignant Hyperthermia: No Meds Allergies/Adverse Reactions: Allergies Allergy/AdvReac Type Severity Reaction Status Date / Time No Known Allergies Allergy Verified 12/17/17 16:31 - Medications Medications: Current Medications Acetylcysteine (Acetylcysteine 10% 10 Ml) 6 ml IH Q4 [facility] Albuterol/Ipratropium (Duoneb 3 Mg/0.5 Mg (3 Ml) Ud) 3 ml INH RQ4 [facility] Last Admin: 12/21/17 12:19 Dose: Not Given Amlodipine Besylate (Norvasc) 10 mg PO DAILY [facility] Last Admin: 12/21/17 09:21 Dose: 10 mg Benzocaine/Menthol (Cepacol Sore Throat) 1 rufus PO Q6 PRN PRN Reason: Sore Throat Last Admin: 12/18/17 15:15 Dose: 1 rufus Budesonide (Pulmicort Respules) 0.5 mg INH RTID [facility] Docusate Sodium (Colace) 100 mg PO BID [facility] Last Admin: 12/21/17 09:20 Dose: 100 mg Enoxaparin Sodium (Lovenox) 40 mg SC DAILY [facility]; Protocol Last Admin: 12/21/17 09:22 Dose: 40 mg Gabapentin (Neurontin) 300 mg PO DAILY [facility] Last Admin: 12/21/17 09:22 Dose: 300 mg Guaifenesin (Mucinex La) 600 mg PO Q12 [facility] Lactulose (Enulose) 20 gm PO BID PRN PRN Reason: Constipation Last Admin: 12/21/17 09:21 Dose: 20 gm Lidocaine (Lidoderm) 1 ea TD DAILY [facility] Last Admin: 12/21/17 09:26 Dose: 1 ea Methylprednisolone (Solu-Medrol) 60 mg IVP Q8H [facility] Metoprolol Succinate (Toprol Xl) 25 mg PO DAILY [facility] Last Admin: 12/21/17 09:24 Dose: 25 mg Multivitamins/Minerals (Therapeutic-M Tab) 1 tab PO DAILY [facility] Last Admin: 12/21/17 09:20 Dose: 1 tab Pantoprazole Sodium (Protonix Ec Tab) 40 mg PO DAILY [facility] Last Admin: 12/21/17 09:24 Dose: 40 mg Senna/Docusate Sodium (Senokot S 50 Mg-8.6 Mg) 2 tab PO HS [facility] Last Admin: 12/20/17 22:38 Dose: 2 tab Tramadol HCl (Ultram) 50 mg PO Q6 PRN PRN Reason: Pain, moderate (4-7) Last Admin: 12/20/17 18:33 Dose: 50 mg Physical Exam - Constitutional Appears: Well, No Acute Distress - Head Exam Head Exam: ATRAUMATIC, NORMOCEPHALIC - Eye Exam Eye Exam: EOMI, Normal appearance, PERRL - ENT Exam ENT Exam: Mucous Membranes Moist - Respiratory Exam Respiratory Exam: NORMAL BREATHING PATTERN - Cardiovascular Exam Cardiovascular Exam: +S1, +S2 - GI/Abdominal Exam GI & Abdominal Exam: Soft. absent: Tenderness - Extremities Exam Additional comments: RUE: small bony protrusion anterior shoulder with mild tenderness no other tenderness no swelling, no lesions, no masses AROM- FF:30, ABD:30, ER:15 PROM- FF:80, ABD:50, ER:30 sensation intact AXN/MN/UN/RN motor intact MN/UN/RN radial pulse intact - Neurological Exam Neurological exam: Alert, Oriented x3 - Psychiatric Exam Psychiatric exam: Normal Affect, Normal Mood - Skin Skin Exam: Normal Color, Warm Results - Vital Signs Recent Vital Signs: Last Vital Signs Temp 98 F 12/21/17 08:44 Pulse 73 12/21/17 09:24 Resp 18 12/21/17 08:44 BP 158/69 H 12/21/17 09:24 Pulse Ox 100 12/21/17 08:44 - Labs Result Diagrams: 12/21/17 05:50 12/21/17 05:50 Labs: Laboratory Results - last 24 hr 12/21/17 12/21/17 05:50 05:50 WBC 10.8 RBC 3.14 L Hgb 9.6 L Hct 28.4 L MCV 90.6 MCH 30.7 MCHC 33.9 RDW 14.3 Plt Count 291 Sodium 138 Potassium 5.0 Chloride 105 Carbon Dioxide 24 Anion Gap 14 BUN 42 H Creatinine 1.4 H Est GFR ( Amer) 43 Est GFR (Non-Af Amer) 35 Random Glucose 165 H Calcium 9.1 - Impressions Impression: Chest Xray reveals R shoulder humeral neck fracture without significant changes in position from xrays taken 03/25/17. Assessment & Plan (1) Humeral surgical neck fracture Assessment and Plan: Patient with old right surgical neck fracture with developed stiffness and weakness -PT/OT ROM and strengthening exercises as tolerated -pain control -R shoulder xrays -no acute orthopedic intervention at this time -to follow up in office with Dr. Gentile upon discharge -above d/w Dr. Gentile in agreement Status: Inactive
[2017-12-21] MEDS: Budesonide 0.5 mg/2 ml Inhal Susp UD INH SCH ×2 (15:59→19:55)
--- NOTE | 2017-12-21 16:44 | RAD ---
Date of service: 12/21/2017 PROCEDURE: Radiographs of the Right Shoulder HISTORY: R shoulder pain COMPARISON: CT right upper extremity from 03/25/2017 FINDINGS: BONES: There is diffuse bone demineralization. 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 JOINTS: Normal. Glenohumeral and acromioclavicular joints preserved. No osteoarthritis. SOFT TISSUES: Normal. OTHER FINDINGS: None. 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 No dislocation.
[2017-12-21] MEDS: ACETYLCYSTEINE 10% IH SCH (17:58)
[2017-12-21] MEDS: Docusate-Senna 50 mg-8.6 mg Tab PO SCH (21:42)
[2017-12-21] MEDS: guaiFENesin 600 mg ER Tab PO SCH (21:42)
[2017-12-22] MEDS: Albuterol-Ipratrop 3 mg / 0.5 (3 ml) UD INH SCH ×5 (00:29→15:35)
[2017-12-22] MEDS: ACETYLCYSTEINE 10% IH SCH ×4 (00:30→13:36)
[2017-12-22] MEDS: Budesonide 0.5 mg/2 ml Inhal Susp UD INH SCH ×2 (08:01→15:35)
[2017-12-22] MEDS: Lidocaine 5% Patch TD SCH (08:50)
[2017-12-22] MEDS: Enoxaparin 40 mg Syringe SC SCH (08:51)
[2017-12-22] MEDS: guaiFENesin 600 mg ER Tab PO SCH (08:51)
[2017-12-22] MEDS: Multivitamin With Minerals Tab PO SCH (08:52)
[2017-12-22] MEDS: Metoprolol Succinate 25 mg XL Tab PO SCH (08:52)
[2017-12-22] MEDS: Pantoprazole 40 mg EC Tab PO SCH (08:53)
[2017-12-22 10:40] VITALS: RESP 19
[2017-12-22 16:00] VITALS: PULSE 78; TEMP 97.7; O2SAT 96
[2017-12-22 16:32] VITALS: BP 150/73
--- NOTE | 2017-12-22 16:36 | CP.PCM.PN ---
Subjective - Date & Time of Evaluation Date of Evaluation: 12/22/17 Time of Evaluation: 10:00 - Subjective Subjective: F/U Asthma Exacerbation. Pt awake, no SOB, occasional dry cough, as per nurse, tolerated breakfast well. Objective - Vital Signs/Intake and Output Vital Signs (last 24 hours): Temp Pulse Resp BP Pulse Ox 97.7 F 78 19 150/73 96 12/22/17 15:59 12/22/17 15:59 12/22/17 15:59 12/22/17 15:59 12/22/17 15:59 - Medications Medications: Current Medications Acetylcysteine (Acetylcysteine 10% 10 Ml) 6 ml IH Q4 [facility] Last Admin: 12/22/17 13:36 Dose: Not Given Albuterol/Ipratropium (Duoneb 3 Mg/0.5 Mg (3 Ml) Ud) 3 ml INH RQ4 [facility] Last Admin: 12/22/17 15:35 Dose: 3 ml Amlodipine Besylate (Norvasc) 10 mg PO DAILY [facility] Last Admin: 12/22/17 08:51 Dose: 10 mg Benzocaine/Menthol (Cepacol Sore Throat) 1 rufus PO Q6 PRN PRN Reason: Sore Throat Last Admin: 12/18/17 15:15 Dose: 1 rufus Budesonide (Pulmicort Respules) 0.5 mg INH RTID [facility] Last Admin: 12/22/17 15:35 Dose: 0.5 mg Docusate Sodium (Colace) 100 mg PO BID [facility] Last Admin: 12/22/17 16:35 Dose: Not Given Enoxaparin Sodium (Lovenox) 40 mg SC DAILY [facility]; Protocol Last Admin: 12/22/17 08:51 Dose: 40 mg Gabapentin (Neurontin) 300 mg PO DAILY [facility] Last Admin: 12/22/17 08:51 Dose: 300 mg Guaifenesin (Mucinex La) 600 mg PO Q12 [facility] Last Admin: 12/22/17 08:51 Dose: 600 mg Lactic Acid (Lac-Hydrin 12% Lotion (225 G)) 1 applic TOP BID [facility] Last Admin: 12/22/17 16:35 Dose: 1 applic Lactulose (Enulose) 20 gm PO BID PRN PRN Reason: Constipation Last Admin: 12/21/17 09:21 Dose: 20 gm Lidocaine (Lidoderm) 1 ea TD DAILY [facility] Last Admin: 12/22/17 08:50 Dose: 1 ea Methylprednisolone (Solu-Medrol) 60 mg IVP Q8H [facility] Last Admin: 12/22/17 14:03 Dose: 60 mg Metoprolol Succinate (Toprol Xl) 25 mg PO DAILY [facility] Last Admin: 12/22/17 08:52 Dose: 25 mg Multivitamins/Minerals (Therapeutic-M Tab) 1 tab PO DAILY [facility] Last Admin: 12/22/17 08:52 Dose: 1 tab Pantoprazole Sodium (Protonix Ec Tab) 40 mg PO DAILY [facility] Last Admin: 12/22/17 08:53 Dose: 40 mg Senna/Docusate Sodium (Senokot S 50 Mg-8.6 Mg) 2 tab PO HS [facility] Last Admin: 12/21/17 21:42 Dose: 2 tab Tramadol HCl (Ultram) 50 mg PO Q6 PRN PRN Reason: Pain, moderate (4-7) Last Admin: 12/20/17 18:33 Dose: 50 mg - Labs Labs: 12/21/17 05:50 12/21/17 05:50 - Constitutional Appears: No Acute Distress - Head Exam Head Exam: NORMAL INSPECTION - Eye Exam Eye Exam: PERRL - ENT Exam ENT Exam: Normal Exam - Neck Exam Neck Exam: Normal Inspection - Respiratory Exam Respiratory Exam: Decreased Breath Sounds (at bases), Rhonchi (scattered) - Cardiovascular Exam Cardiovascular Exam: REGULAR RHYTHM - GI/Abdominal Exam GI & Abdominal Exam: Soft, Normal Bowel Sounds - Extremities Exam Additional comments: R arm contracted, unable to elevate and straightened - Back Exam Back Exam: tenderness - Neurological Exam Neurological Exam: Alert, Oriented x3 - Psychiatric Exam Psychiatric exam: Normal Mood - Skin Skin Exam: Normal Color, Warm Assessment and Plan (1) Asthma exacerbation Status: Acute - Assessment and Plan (Free Text) Plan: Pt doing better with Duoneb, Pulmicort, Solu-Medrol. family planning for transfer to [facility] today.
--- NOTE | 2017-12-24 04:10 | CP.PCM.PN ---
Subjective - Date & Time of Evaluation Date of Evaluation: 12/21/17 Time of Evaluation: 19:45 Objective - Vital Signs/Intake and Output Vital Signs (last 24 hours): Temp Pulse Resp BP Pulse Ox 97.7 F 78 19 150/73 96 12/22/17 15:59 12/22/17 15:59 12/22/17 15:59 12/22/17 15:59 12/22/17 15:59 - Labs Labs: 12/21/17 05:50 12/21/17 05:50
--- NOTE | 2017-12-24 04:11 | CP.PCM.DIS ---
Provider - Provider Date of Admission: 12/20/17 12:26 Attending physician: Melinda Damico MD Time Spent in preparation of Discharge (in minutes): 25 Hospital Course - Lab Results Lab Results: Micro Results 12/17/17 17:50 Blood-Venous Blood Culture - Final NO GROWTH AFTER 5 DAYS 12/17/17 17:50 Blood-Venous Gram Stain - Final TEST NOT PERFORMED 12/17/17 17:30 Blood-Venous Blood Culture - Final NO GROWTH AFTER 5 DAYS 12/17/17 17:30 Blood-Venous Gram Stain - Final TEST NOT PERFORMED 12/17/17 18:30 Urine,Clean Catch Urine Culture - Final Associate Professor Of Criminal Justice Species Most Recent Lab Values WBC 10.8 K/uL (4.8-10.8) 12/21/17 05:50 RBC 3.14 Mil/uL (3.80-5.20) L 12/21/17 05:50 Hgb 9.6 g/dL (12.0-16.0) L 12/21/17 05:50 Hct 28.4 % (34.0-47.0) L 12/21/17 05:50 MCV 90.6 fl (81.0-99.0) 12/21/17 05:50 MCH 30.7 pg (27.0-31.0) 12/21/17 05:50 MCHC 33.9 g/dL (33.0-37.0) 12/21/17 05:50 RDW 14.3 % (11.5-14.5) 12/21/17 05:50 Plt Count 291 K/uL (130-400) 12/21/17 05:50 MPV 8.1 fl (7.2-11.7) 12/17/17 17:54 Neut % (Auto) 65.1 % (50.0-75.0) 12/17/17 17:54 Lymph % (Auto) 16.1 % (20.0-40.0) L 12/17/17 17:54 [place] % (Auto) 6.3 % (0.0-10.0) 12/17/17 17:54 Eos % (Auto) 12.3 % (0.0-4.0) H 12/17/17 17:54 Baso % (Auto) 0.2 % (0.0-2.0) 12/17/17 17:54 Neut # (Auto) 5.5 K/uL (1.8-7.0) 12/17/17 17:54 Lymph # (Auto) 1.4 K/uL (1.0-4.3) 12/17/17 17:54 [place] # (Auto) 0.5 K/uL (0.0-0.8) 12/17/17 17:54 Eos # (Auto) 1.0 K/uL (0.0-0.7) H 12/17/17 17:54 Baso # (Auto) 0.0 K/uL (0.0-0.2) 12/17/17 17:54 Sodium 138 mmol/l (132-148) 12/21/17 05:50 Potassium 5.0 MMOL/L (3.6-5.0) 12/21/17 05:50 Chloride 105 mmol/L (98-107) 12/21/17 05:50 Carbon Dioxide 24 mmol/L (22-30) 12/21/17 05:50 Anion Gap 14 (10-20) 12/21/17 05:50 BUN 42 mg/dl (7-17) H 12/21/17 05:50 Creatinine 1.4 mg/dl (0.7-1.2) H 12/21/17 05:50 Est GFR ( Amer) 43 12/21/17 05:50 Est GFR (Non-Af Amer) 35 12/21/17 05:50 Random Glucose 165 mg/dL (65-105) H 12/21/17 05:50 Calcium 9.1 mg/dL (8.4-10.2) 12/21/17 05:50 Phosphorus 3.8 mg/dl (2.5-4.5) 12/17/17 17:54 Magnesium 2.2 MG/DL (1.6-2.3) 12/17/17 17:54 Total Bilirubin 0.5 mg/dl (0.2-1.3) 12/17/17 17:54 AST 21 U/L (14-36) 12/17/17 17:54 ALT 15 U/L (9-52) 12/17/17 17:54 Alkaline Phosphatase 89 U/L (38-126) 12/17/17 17:54 Troponin I 0.0150 ng/mL (0.00-0.120) 12/17/17 17:54 NT-Pro-B Natriuret Pep 1420 pg/ml (0-900) H 12/17/17 17:54 Total Protein 8.0 G/DL (6.3-8.2) 12/17/17 17:54 Albumin 3.9 g/dL (3.5-5.0) 12/17/17 17:54 Globulin 4.1 gm/dL (2.2-3.9) H 12/17/17 17:54 Albumin/Globulin Ratio 1.0 (1.0-2.1) 12/17/17 17:54 Urine Color Yellow (YELLOW) 12/17/17 18:30 Urine Clarity Clear (Clear) 12/17/17 18:30 Urine pH 5.0 (5.0-8.0) 12/17/17 18:30 Ur Specific [place] 1.017 (1.003-1.030) 12/17/17 18:30 Urine Protein 30 mg/dL (NEGATIVE) 12/17/17 18:30 Urine Glucose (UA) Neg mg/dL (Normal) 12/17/17 18:30 Urine Ketones Negative mg/dL (NEGATIVE) 12/17/17 18:30 Urine Blood Negative (NEGATIVE) 12/17/17 18:30 Urine Nitrate Negative (NEGATIVE) 12/17/17 18:30 Urine Bilirubin Negative (NEGATIVE) 12/17/17 18:30 Urine Urobilinogen 0.2-1.0 mg/dL (0.2-1.0) 12/17/17 18:30 Ur Leukocyte Esterase Small [place]/uL (Negative) 12/17/17 18:30 Urine RBC (Auto) 1 /hpf (0-3) 12/17/17 18:30 Urine Microscopic WBC 6 /hpf (0-5) H 12/17/17 18:30 Ur Squamous Epith Cells 1 /hpf (0-5) 12/17/17 18:30 Urine Bacteria Rare (<OCC) 12/17/17 18:30 Discharge Exam - Head Exam Head Exam: NORMAL INSPECTION Discharge Plan - Follow Up Plan Condition: FAIR Disposition: TRANSF TO SNF Instructions: Asthma, Adult (DC), Upper Back Pain (DC)
== END 2017-12-22 17:30 | DRG 203 ==
LOC: H.ER 16:20 → H.ERHOLD 19:14 → H.MEDSURG1 20:33 → OBSVTOIN 12-20 12:26
PROVIDERS: ADMIT Internal Medicine; ATTEND Internal Medicine
PROC: 3E0F73Z Introduction of Anti-inflammatory into Respiratory Tract, Via Natural or Artificial Opening (ICD-10-PCS; principal; 2017-12-20)
DX: J45.901 Unspecified asthma with (acute) exacerbation (principal); I12.9 Hypertensive chronic kidney disease with stage 1 through stage 4 chronic kidney disease, or unspecified chronic kidney disease; G89.29 Other chronic pain; M48.061 Spinal stenosis, lumbar region without neurogenic claudication; M51.27 Other intervertebral disc displacement, lumbosacral region; N18.9 Chronic kidney disease, unspecified; K52.9 Noninfective gastroenteritis and colitis, unspecified; K59.09 Other constipation; F17.210 Nicotine dependence, cigarettes, uncomplicated; Z87.81 Personal history of (healed) traumatic fracture

== ENCOUNTER 2018-01-09 13:35 | Observation (INO) | payer MEDICARE, OTHER ==
[2018-01-09 13:35] VITALS: BMI 27.3
--- NOTE | 2018-01-09 15:08 | ED PDOC ---
HPI: General Adult Time Seen by Provider: 01/09/18 14:32 Chief Complaint (Nursing): Weakness/Neurological Deficit Chief Complaint (Provider): Weakness/Neurological Deficit History Per: Patient History/Exam Limitations: no limitations Onset/Duration Of Symptoms: Days Current Symptoms Are (Timing): Still Present Additional Complaint(s): Kirsty Cat is an 87 year old female with a past medical history of hypertension and asthma who is presenting to the ED with niece for evaluation of unsteady gait. Patient states that 2 weeks ago she was in the ED and was admitted for shortness of breath, staying in the hospital for 2 days before being transferred to rehab. As per niece, since Wednesday (2 days ago) when she came home from rehab, she has had frequent falls and reports that patient is normally independent. Today, patients visiting nurse came for the first time an d advised them to come to the ED as she is unsteady on her feet. Patient offers no complaints and denies any chest pain, headaches, neck pain, numbness, tingling, and abdominal pain. PMD: Melinda Damico Past Medical History Reviewed: Historical Data, Nursing Documentation, Vital Signs Vital Signs: Last Vital Signs Temp 98.3 F 01/09/18 13:38 Pulse 85 01/09/18 13:38 Resp 16 01/09/18 13:38 BP 138/77 01/09/18 13:38 Pulse Ox 100 01/09/18 13:38 - Medical History PMH: Asthma, Fractures (Right humerus), HTN, Chronic Kidney Disease Denies: HIV - Surgical History Surgical History: No Surg Hx - Family History Family History: States: Unknown Family Hx - Social History Current smoker - smoking cessation education provided: No Alcohol: None Drugs: Denies - Home Medications Home Medications: Ambulatory Orders Medication Instructions Recorded RX: Albuterol Sulfate [Proair Hfa] 2 puff IH Q4H PRN 03/25/17 RX: Gabapentin [Neurontin] 300 mg PO DAILY 03/25/17 RX: Metoprolol Succinate XL 25 mg PO DAILY 03/25/17 [Toprol XL] RX: Multivitamin [Multi-Vitamin 1 tab PO DAILY 03/25/17 Daily] RX: amLODIPine [Norvasc] 10 mg PO DAILY 03/25/17 RX: traMADol [Ultram] 50 mg PO Q6 #20 tab 03/29/17 RX: Ammonium Lactate 12% 1 applic TOP BID bottle 12/22/17 [Lac-Hydrin 12% Lotion (225 g)] RX: Docusate Sodium/Sennosides A 2 tab PO HS tab 12/22/17 [Senokot S 50 MG-8.6 MG] RX: Docusate [Colace] 100 mg PO BID cap 12/22/17 RX: Lactulose [Enulose] 20 gm PO BID PRN udc 12/22/17 RX: Lidocaine 5% [Lidoderm] 1 ea TD DAILY patch 12/22/17 RX: Pantoprazole [Protonix EC Tab] 40 mg PO DAILY ect 12/22/17 RX: guaiFENesin [Mucinex LA] 600 mg PO Q12 tab 12/22/17 - Allergies Allergies/Adverse Reactions: Allergies Allergy/AdvReac Type Severity Reaction Status Date / Time No Known Allergies Allergy Verified 01/09/18 13:37 Review of Systems ROS Statement: Except As Marked, All Systems Reviewed And Found Negative Cardiovascular: Negative for: Chest Pain Gastrointestinal: Negative for: Abdominal Pain Musculoskeletal: Negative for: Neck Pain Neurological: Positive for: Other (unsteady gait ). Negative for: Numbness, Headache Physical Exam - Reviewed Nursing Documentation Reviewed: Yes Vital Signs Reviewed: Yes - Physical Exam Appears: Positive for: Well, Non-toxic, No Acute Distress Head Exam: Positive for: ATRAUMATIC, NORMAL INSPECTION, NORMOCEPHALIC Skin: Positive for: Normal Color, Warm, DRY Eye Exam: Positive for: EOMI, Normal appearance, PERRL ENT: Positive for: Normal ENT Inspection Neck: Positive for: Normal, Painless ROM Cardiovascular/Chest: Positive for: Regular Rate, Rhythm, Chest Non Tender. Negative for: Murmur Respiratory: Positive for: Normal Breath Sounds. Negative for: Respiratory Distress Gastrointestinal/Abdominal: Positive for: Normal Exam, Soft, Other (no ecchymosis to abdomen). Negative for: Tenderness Back: Positive for: Normal Inspection. Negative for: L CVA Tenderness, R CVA Tenderness, Vertebral Tenderness Extremity: Positive for: Normal ROM. Negative for: Deformity, Swelling Neurologic/Psych: Positive for: Alert, Oriented (x2). Negative for: Motor/Senso ry Deficits, Aphasia, Facial Droop - Laboratory Results Result Diagrams: 01/09/18 16:50 01/09/18 16:50 - ECG ECG: Positive for: Interpreted By Me ECG Rhythm: Positive for: Sinus Rhythm, Premature Ventricular Contraction. Negative for: ST/T Changes Rate: 87 (unchanged from previous EKGs) O2 Sat by Pulse Oximetry: 100 (RA) Pulse Ox Interpretation: Normal - Radiology X-Ray: Read By Radiologist (CXR) X-Ray Interpretation: No Acute Disease Medical Decision Making Medical Decision Making: Time: 14:48 Plan: --CT Head --EKG --CMP --CPK --Troponin --CBC --Chest X-Ray --Urinalysis Patient evaluated by Dr. Damico who agrees with plan of care and requests patient to be placed on 23 hour observation on medical floor. CT head w/o contrast: No evidence of intracranial hemorrhage or recent infarct. Age-related atrophy and small vessel changes. Scribe Attestation: Documented by, Ginny Diaz acting as a scribe for Ector Tovar PA-C. Provider Scribe Attestation: All medical record entries made by the Scribe were at my direction and personally dictated by me. I have reviewed the chart and agree that the record accurately reflects my personal performance of the history, physical exam, medical decision making, and the department course for this patient. I have also personally directed, reviewed, and agree with the discharge instructions and disposition. Disposition - Clinical Impression Clinical Impression: Frequent falls - Patient ED Disposition Is Patient to be Admitted: Yes - Disposition Disposition Time: 15:08 Condition: STABLE
--- NOTE | 2018-01-09 15:33 | RAD ---
Date of service: 01/09/2018 HISTORY: clearance COMPARISON: 12/17/2017 FINDINGS: LUNGS: Mild diffuse chronic interstitial changes. Mild amount of congestion is not excluded. PLEURA: No significant pleural effusion identified, no pneumothorax apparent. CARDIOVASCULAR: Mild aortic atherosclerotic calcification present. Heart is once again enlarged. Aorta also is uncoiled. OSSEOUS STRUCTURES: Right shoulder chronic healing fracture. VISUALIZED UPPER ABDOMEN: Normal. OTHER FINDINGS: None. IMPRESSION: No focal infiltrate. Mild interstitial change versus mild vascular congestion.
[2018-01-09 17:03] LABS: BASO % 0.6 % (0.0-2.0); EOS # 0.2 K/uL (0.0-0.7); EOS % 3.8 % (0.0-4.0); HEMOGLOBIN 9.2 g/dL (12.0-16.0); LYMPH # 1.3 K/uL (1.0-4.3); LYMPH % 26.1 % (20.0-40.0); MEAN CELL VOLUME 91.6 fl (81.0-99.0); MEAN CORPUSCULAR HEMOGLOBIN 29.7 pg (27.0-31.0); MEAN CORPUSCULAR HGB CONC 32.4 g/dL (33.0-37.0); MEAN PLATELET VOLUME 7.5 fl (7.2-11.7); MONO # 0.5 K/uL (0.0-0.8); MONO % 9.3 % (0.0-10.0); NEUT % 60.2 % (50.0-75.0); NRBC % 0.1 % (0.0-0.0); RBC 3.11 Mil/uL (3.80-5.20); RED CELL DISTRIBUTION WIDTH 13.8 % (11.5-14.5)
--- NOTE | 2018-01-09 17:09 | CT ---
Date of service: 01/09/2018 PROCEDURE: CT HEAD WITHOUT CONTRAST. HISTORY: frequent falls COMPARISON: None available. TECHNIQUE: Axial computed tomography images were obtained through the head/brain without intravenous contrast. Radiation dose: Total exam DLP = 862.3 mGy-cm. This CT exam was performed using one or more of the following dose reduction techniques: Automated exposure control, adjustment of the mA and/or kV according to patient size, and/or use of iterative reconstruction technique. FINDINGS: HEMORRHAGE: No intracranial hemorrhage. BRAIN: No mass effect or edema. Moderate cerebral atrophy and small vessel changes are identified consistent with the patient's age. No cortical effacement is noted. Subdural windows show no evidence of subdural hematoma. VENTRICLES: Unremarkable. No hydrocephalus. CALVARIUM: Unremarkable. PARANASAL SINUSES: Unremarkable as visualized. No significant inflammatory changes. MASTOID AIR CELLS: Unremarkable as visualized. No inflammatory changes. OTHER FINDINGS: None. IMPRESSION: No evidence of intracranial hemorrhage or recent infarct. Age-related atrophy and small vessel changes.
[2018-01-09 17:16] LABS: ALB/GLOB RATIO 0.9 (1.0-2.1); ALBUMIN 3.6 g/dL (3.5-5.0); ALT/SGPT 17 U/L (9-52); AST/SGOT 26 U/L (14-36); BLOOD UREA NITROGEN 11 mg/dl (7-17); CALCIUM 8.7 mg/dL (8.4-10.2); GFR NON-AFRICAN AMERICAN 59
[2018-01-09] MEDS ORDERED: Potassium Chloride 20 mEq ER Tab PO STA (17:30)
[2018-01-09] MEDS ORDERED: Potassium Chloride 20 mEq ER Tab PO ONE (17:46)
--- NOTE | 2018-01-09 23:55 | CP.PCM.HP ---
History of Present Illness - History of Present Illness History of Present Illness: CC: Fall, Unable to Ambulate, and Unkept History of Present Illness: An 87 year old female with a past medical history of Hypertension and Asthma who was prematurely discharged after patient and Niece insisted on going home 4 days back. Today she presented to the ED with niece for evaluation of Fall, Unable to ambulate, and unable to take care of herself. Today, patients visiting nurse came for the first time and advised them to come to the ED when she found her unkept with urine and feces, and d/w with me telephonically. Also patient unable to ambulate and care for herself, and niece stated that she will not be able to take care of her at home. Offers no complaints and denies any chest pain, headaches, neck pain, numbness, tingling, and abdominal pain. Present on Admission - Present on Admission Any Indicators Present on Admission: No Review of Systems - Review of Systems All systems: reviewed and no additional remarkable complaints except Review of Systems: as per HPI Past Patient History - Past Medical History & Family History Past Medical History?: Yes Past Family History: Reviewed and not pertinent - Past Social History Alcohol: None Drugs: Denies - CARDIAC Hx Hypertension: Yes - PULMONARY Hx Asthma: Yes - NEUROLOGICAL Hx Neurological Disorder: Yes - HEENT Hx HEENT Problems: Yes (wear eyeglasses) - RENAL Hx Chronic Kidney Disease: Yes - ENDOCRINE/METABOLIC Hx Endocrine Disorders: No - HEMATOLOGICAL/ONCOLOGICAL Hx Human Immunodeficiency Virus (HIV): No - INTEGUMENTARY Hx Dermatological Problems: No - MUSCULOSKELETAL/RHEUMATOLOGICAL Hx Fractures: Yes (Right humerus) - GASTROINTESTINAL Hx Gastrointestinal Disorders: Yes Hx Constipation: Yes (occasional) - GENITOURINARY/GYNECOLOGICAL Hx Genitourinary Disorders: Yes Hx Incontinence: Yes - PSYCHIATRIC Hx Psychophysiologic Disorder: No Hx Substance Use: No - SURGICAL HISTORY Hx Surgeries: No - ANESTHESIA Hx Anesthesia: No Hx Anesthesia Reactions: No Hx Malignant Hyperthermia: No Meds Allergies/Adverse Reactions: Allergies Allergy/AdvReac Type Severity Reaction Status Date / Time No Known Allergies Allergy Verified 01/09/18 13:37 Physical Exam - Constitutional Appears: Well, No Acute Distress, Chronically Ill - Head Exam Head Exam: ATRAUMATIC, NORMAL INSPECTION, NORMOCEPHALIC - Eye Exam Eye Exam: EOMI, Normal appearance, PERRL Pupil Exam: NORMAL ACCOMODATION, PERRL - ENT Exam ENT Exam: Mucous Membranes Moist, Normal Exam - Neck Exam Neck exam: Positive for: Normal Inspection - Respiratory Exam Respiratory Exam: Clear to Auscultation Bilateral, NORMAL BREATHING PATTERN - Cardiovascular Exam Cardiovascular Exam: REGULAR RHYTHM - GI/Abdominal Exam GI & Abdominal Exam: Normal Bowel Sounds, Soft. absent: Tenderness - Extremities Exam Additional comments: Right Arm limitted ROM, and deformity due to prior fracture right Humerus. Unable to ambulate. - Back Exam Back exam: NORMAL INSPECTION - Neurological Exam Neurological exam: Alert, CN II-XII Intact, Normal Gait, Oriented x3, Reflexes Normal - Psychiatric Exam Psychiatric exam: Normal Affect, Normal Mood - Skin Skin Exam: Dry, Intact, Normal Color, Warm Results - Vital Signs Recent Vital Signs: Last Vital Signs Temp 98.1 F 01/09/18 18:34 Pulse 87 01/09/18 19:25 Resp 18 01/09/18 18:34 BP 152/69 H 01/09/18 18:34 Pulse Ox 100 01/09/18 19:25 - Labs Result Diagrams: 01/10/18 05:20 01/10/18 05:20 Labs: Laboratory Results - last 24 hr 01/09/18 01/09/18 16:50 16:50 WBC 5.0 D RBC 3.11 L Hgb 9.2 L Hct 28.5 L MCV 91.6 MCH 29.7 MCHC 32.4 L RDW 13.8 Plt Count 432 H D MPV 7.5 Neut % (Auto) 60.2 Lymph % (Auto) 26.1 Jenkins % (Auto) 9.3 Eos % (Auto) 3.8 Baso % (Auto) 0.6 Neut # (Auto) 3.0 Lymph # (Auto) 1.3 Jenkins # (Auto) 0.5 Eos # (Auto) 0.2 Baso # (Auto) 0.0 Sodium 139 Potassium 3.2 L Chloride 104 Carbon Dioxide 25 Anion Gap 13 BUN 11 Creatinine 0.9 Est GFR ( Amer) > 60 Est GFR (Non-Af Amer) 59 Random Glucose 138 H Calcium 8.7 Total Bilirubin 0.3 AST 26 ALT 17 Alkaline Phosphatase 86 Total Creatine Kinase 131 Troponin I 0.0140 Total Protein 7.8 Albumin 3.6 Globulin 4.2 H Albumin/Globulin Ratio 0.9 L Assessment & Plan (1) Falls frequently Status: Acute Priority: High (2) Asthma Status: Chronic Priority: Low (3) Humeral surgical neck fracture Status: Chronic Priority: Medium (4) Hypertension Status: Chronic Priority: Medium (5) Back pain Status: Acute - Assessment and Plan (Free Text) Plan: IVF C/W Home medication XR of B/L Hips PT/OT and SW consult for ABE to [facility]
[2018-01-10 05:37] LABS: BASO % 0.3 % (0.0-2.0); EOS # 0.3 K/uL (0.0-0.7); EOS % 6.6 % (0.0-4.0); HEMOGLOBIN 9.7 g/dL (12.0-16.0); LYMPH # 1.1 K/uL (1.0-4.3); LYMPH % 23.7 % (20.0-40.0); MEAN CELL VOLUME 90.1 fl (81.0-99.0); MEAN CORPUSCULAR HEMOGLOBIN 28.9 pg (27.0-31.0); MEAN CORPUSCULAR HGB CONC 32.1 g/dL (33.0-37.0); MEAN PLATELET VOLUME 7.3 fl (7.2-11.7); MONO # 0.4 K/uL (0.0-0.8); MONO % 9.1 % (0.0-10.0); NEUT # 2.8 K/uL (1.8-7.0); NEUT % 60.3 % (50.0-75.0); NRBC % 0.1 % (0.0-0.0); RBC 3.36 Mil/uL (3.80-5.20); RED CELL DISTRIBUTION WIDTH 14.5 % (11.5-14.5); WHITE BLOOD COUNT 4.7 K/uL (4.8-10.8)
[2018-01-10 05:52] LABS: BLOOD UREA NITROGEN 10 mg/dl (7-17); CALCIUM 8.7 mg/dL (8.4-10.2); GFR NON-AFRICAN AMERICAN 52
--- NOTE | 2018-01-10 10:09 | CARD ---
APPROVED REPORT Date of service: 01/09/2018 EKG Measurement Heart [id number] <Conclusion> Sinus rhythm with occasional premature ventricular complexes Left axis deviation Possible inferior infarct, age undetermined Abnormal ECG
--- NOTE | 2018-01-10 10:22 | RAD ---
Date of service: 01/10/2018 PROCEDURE: BILATERAL HIPS WITH PELVIS RADIOGRAPHS HISTORY: Fall, and unable to ambulate COMPARISON: Abdomen pelvis CT without contrast 12/17/2017. TECHNIQUE: AP views of the bilateral hip joints and pelvis is have been submitted as well as bilateral hip joint frog-leg lateral views. FINDINGS: Diffuse osteopenia suggests osteoporosis. No acute fracture or dislocation appreciated at the bilateral hip joints with the pelvic ring appearing grossly intact as well. Pubic bones are intact including pubic symphysis. Bilateral sacroiliac and hip joint degenerative related cortical sclerosis appreciated with sacrum otherwise grossly nonfocal as well as bilateral iliac bones. Vascular calcifications in the pelvis and thigh soft tissues bilaterally with bilateral injection granulomata reiterated. IMPRESSION: No acute fracture or dislocation bilateral hip joints. Pelvic ring appears grossly intact as well, as discussed above.
[2018-01-10 16:54] VITALS: RESP 20
[2018-01-10] MEDS ORDERED: Albuterol HFA 90 mcg/actuation (8 g) IH PRN (17:51)
[2018-01-10] MEDS ORDERED: Albuterol-Ipratrop 3 mg / 0.5 (3 ml) UD INH PRN (17:52)
[2018-01-10] MEDS: guaiFENesin 600 mg ER Tab PO SCH (21:45)
[2018-01-10] MEDS ORDERED: Docusate-Senna 50 mg-8.6 mg Tab PO SCH (22:00)
[2018-01-11] MEDS ORDERED: Metoprolol Succinate 25 mg XL Tab PO SCH (09:00)
[2018-01-11] MEDS ORDERED: Multivitamin With Minerals Tab PO SCH (09:00)
[2018-01-11] MEDS ORDERED: Pantoprazole 40 mg EC Tab PO SCH (09:00)
[2018-01-11] MEDS: Lidocaine 5% Patch TD SCH ×2 (09:46→09:53)
[2018-01-11] MEDS: guaiFENesin 600 mg ER Tab PO SCH (09:47)
--- NOTE | 2018-01-11 11:23 | CP.PCM.PN ---
Subjective - Date & Time of Evaluation Date of Evaluation: 01/10/18 Time of Evaluation: 16:15 - Subjective Subjective: Seen and examined at the bed side. No new complaint. Objective - Vital Signs/Intake and Output Vital Signs (last 24 hours): Temp Pulse Resp BP Pulse Ox 98.6 F 83 20 155/80 H 100 01/11/18 08:54 01/11/18 09:47 01/11/18 08:54 01/11/18 09:47 01/11/18 08:54 - Medications Medications: Current Medications Acetaminophen (Tylenol 325mg Tab) 650 mg PO Q6 PRN PRN Reason: Pain, Mild (1-3) Last Admin: 01/11/18 06:27 Dose: 650 mg Albuterol (Ventolin Hfa 90 Mcg/Actuation (8 G)) 2 puff IH Q4H PRN PRN Reason: Shortness of Breath Albuterol/Ipratropium (Duoneb 3 Mg/0.5 Mg (3 Ml) Ud) 3 ml INH RQ6 PRN PRN Reason: Shortness of Breath Amlodipine Besylate (Norvasc) 10 mg PO DAILY [facility] Last Admin: 01/11/18 09:47 Dose: 10 mg Docusate Sodium (Colace) 100 mg PO BID [facility] Last Admin: 01/11/18 09:46 Dose: 100 mg Gabapentin (Neurontin) 300 mg PO DAILY [facility] Last Admin: 01/11/18 09:47 Dose: 300 mg Guaifenesin (Mucinex La) 600 mg PO Q12 [facility] Last Admin: 01/11/18 09:47 Dose: 600 mg Heparin Sodium (Porcine) (Heparin) 5,000 units SC Q8 [facility]; Protocol Last Admin: 01/11/18 09:46 Dose: 5,000 units Lactic Acid (Lac-Hydrin 12% Lotion (225 G)) 1 applic TOP BID [facility] Last Admin: 01/11/18 09:46 Dose: 1 applic Lactulose (Enulose) 20 gm PO BID PRN PRN Reason: Constipation Lidocaine (Lidoderm) 1 ea TD DAILY [facility] Last Admin: 01/11/18 09:53 Dose: Not Given Metoprolol Succinate (Toprol Xl) 25 mg PO DAILY [facility] Last Admin: 01/11/18 09:47 Dose: 25 mg Multivitamins/Minerals (Therapeutic-M Tab) 1 tab PO DAILY [facility] Last Admin: 11/13/18 09:47 Dose: 1 tab Pantoprazole Sodium (Protonix Ec Tab) 40 mg PO DAILY [facility] Last Admin: 01/11/18 09:47 Dose: 40 mg Senna/Docusate Sodium (Senokot S 50 Mg-8.6 Mg) 2 tab PO HS [facility] Last Admin: 01/10/18 21:46 Dose: 2 tab Tramadol HCl (Ultram) 50 mg PO Q6 PRN PRN Reason: Pain, moderate (4-7) Last Admin: 01/10/18 10:49 Dose: 50 mg - Labs Labs: 01/10/18 05:20 01/10/18 05:20 - Constitutional Appears: Well - Head Exam Head Exam: ATRAUMATIC, NORMAL INSPECTION, NORMOCEPHALIC - Eye Exam Eye Exam: EOMI, Normal appearance, PERRL Pupil Exam: NORMAL ACCOMODATION, PERRL - ENT Exam ENT Exam: Mucous Membranes Moist, Normal Exam - Neck Exam Neck Exam: Full ROM, Normal Inspection. absent: Lymphadenopathy - Respiratory Exam Respiratory Exam: Clear to Ausculation Bilateral, NORMAL BREATHING PATTERN - Cardiovascular Exam Cardiovascular Exam: REGULAR RHYTHM, +S1, +S2. absent: Murmur - GI/Abdominal Exam GI & Abdominal Exam: Soft, Normal Bowel Sounds. absent: Tenderness - Extremities Exam Extremities Exam: Full ROM, Normal Capillary Refill, Normal Inspection. absent: Joint Swelling, Pedal Edema - Back Exam Back Exam: NORMAL INSPECTION - Neurological Exam Neurological Exam: Alert, Awake, CN II-XII Intact, Normal Gait, Oriented x3 - Psychiatric Exam Psychiatric exam: Normal Affect, Normal Mood - Skin Skin Exam: Dry, Intact, Normal Color, Warm Assessment and Plan (1) Falls frequently Status: Acute (2) Asthma Status: Chronic (3) Humeral surgical neck fracture Status: Chronic (4) Hypertension Status: Chronic (5) Back pain Status: Acute - Assessment and Plan (Free Text) Plan: IVF C/W Home medication XR of B/L Hips PT/OT and SW consult for ABE to [facility]
[2018-01-11 16:25] VITALS: BP 134/89; PULSE 67; TEMP 97.3; O2SAT 99
--- NOTE | 2018-01-11 17:59 | CP.PCM.DIS ---
Provider - Provider Date of Admission: 01/09/18 17:59 Attending physician: Melinda Damico MD Consults: 01/10/18 08:00 Social Work Referral Routine Comment: Patient fell at home, may need further assistance Physician Instructions: Reason For Exam: Patient safety in home setting Time Spent in preparation of Discharge (in minutes): 25 Diagnosis - Discharge Diagnosis (1) Falls frequently Status: Acute Priority: High (2) Asthma Status: Chronic Priority: Low (3) Humeral surgical neck fracture Status: Chronic Priority: Medium (4) Hypertension Status: Chronic Priority: Medium (5) Back pain Status: Acute Hospital Course - Lab Results Lab Results: Most Recent Lab Values WBC 4.7 K/uL (4.8-10.8) L 01/10/18 05:20 RBC 3.36 Mil/uL (3.80-5.20) L 01/10/18 05:20 Hgb 9.7 g/dL (12.0-16.0) L 01/10/18 05:20 Hct 30.2 % (34.0-47.0) L 01/10/18 05:20 MCV 90.1 fl (81.0-99.0) 01/10/18 05:20 MCH 28.9 pg (27.0-31.0) 01/10/18 05:20 MCHC 32.1 g/dL (33.0-37.0) L 01/10/18 05:20 RDW 14.5 % (11.5-14.5) 01/10/18 05:20 Plt Count 440 K/uL (130-400) H 01/10/18 05:20 MPV 7.3 fl (7.2-11.7) 01/10/18 05:20 Neut % (Auto) 60.3 % (50.0-75.0) 01/10/18 05:20 Lymph % (Auto) 23.7 % (20.0-40.0) 01/10/18 05:20 [place] % (Auto) 9.1 % (0.0-10.0) 01/10/18 05:20 Eos % (Auto) 6.6 % (0.0-4.0) H 01/10/18 05:20 Baso % (Auto) 0.3 % (0.0-2.0) 01/10/18 05:20 Neut # (Auto) 2.8 K/uL (1.8-7.0) 01/10/18 05:20 Lymph # (Auto) 1.1 K/uL (1.0-4.3) 01/10/18 05:20 [place] # (Auto) 0.4 K/uL (0.0-0.8) 01/10/18 05:20 Eos # (Auto) 0.3 K/uL (0.0-0.7) 01/10/18 05:20 Baso # (Auto) 0.0 K/uL (0.0-0.2) 01/10/18 05:20 Sodium 139 mmol/l (132-148) 01/10/18 05:20 Potassium 4.0 MMOL/L (3.6-5.0) 01/10/18 05:20 Chloride 107 mmol/L (98-107) 01/10/18 05:20 Carbon Dioxide 24 mmol/L (22-30) 01/10/18 05:20 Anion Gap 12 (10-20) 01/10/18 05:20 BUN 10 mg/dl (7-17) 01/10/18 05:20 Creatinine 1.0 mg/dl (0.7-1.2) 01/10/18 05:20 Est GFR ( Amer) > 60 01/10/18 05:20 Est GFR (Non-Af Amer) 52 01/10/18 05:20 POC Glucose (mg/dL) 84 mg/dL (65-110) 01/09/18 15:40 Random Glucose 100 mg/dL (65-105) 01/10/18 05:20 Calcium 8.7 mg/dL (8.4-10.2) 01/10/18 05:20 Total Bilirubin 0.3 mg/dl (0.2-1.3) 01/09/18 16:50 AST 26 U/L (14-36) 01/09/18 16:50 ALT 17 U/L (9-52) 01/09/18 16:50 Alkaline Phosphatase 86 U/L (38-126) 01/09/18 16:50 Total Creatine Kinase 131 U/L (30-135) 01/09/18 16:50 Troponin I 0.0140 ng/mL (0.00-0.120) 01/09/18 16:50 Total Protein 7.8 G/DL (6.3-8.2) 01/09/18 16:50 Albumin 3.6 g/dL (3.5-5.0) 01/09/18 16:50 Globulin 4.2 gm/dL (2.2-3.9) H 01/09/18 16:50 Albumin/Globulin Ratio 0.9 (1.0-2.1) L 01/09/18 16:50 Discharge Exam - Head Exam Head Exam: ATRAUMATIC, NORMAL INSPECTION, NORMOCEPHALIC Discharge Plan - Follow Up Plan Condition: STABLE Disposition: HOME/ ROUTINE Instructions: Preventing Falls in the Older Adult Additional Instructions: follow up with primary MD 1 week [facility] [phone] Referrals: Melinda Damico MD [Staff Provider] -
== END 2018-01-11 18:00 | disposition home health service (06) ==
LOC: H.ER 13:35 → H.ERHOLD 17:59 → H.MEDSURG1 01-10 15:25
PROVIDERS: ADMIT Internal Medicine; ATTEND Internal Medicine
DX: R29.6 Repeated falls (principal); I12.9 Hypertensive chronic kidney disease with stage 1 through stage 4 chronic kidney disease, or unspecified chronic kidney disease; N18.9 Chronic kidney disease, unspecified; J45.909 Unspecified asthma, uncomplicated; M84.421S Pathological fracture, right humerus, sequela; R26.81 Unsteadiness on feet; M54.9 Dorsalgia, unspecified
CPT/HCPCS: 70450; 71045; 73523; 80048; 80053; 82550; 82948; 84484; 85025; 93005; 96372; 97161; 97530; 99285; G0378; G8978; G8979; J1644

== ENCOUNTER 2018-01-15 13:18 | Inpatient (IN) | payer MEDICARE ==
[2018-01-15 13:18] VITALS: BMI 27.3
--- NOTE | 2018-01-15 14:36 | ED PDOC ---
HPI: General Adult Time Seen by Provider: 01/15/18 13:37 Chief Complaint (Nursing): Chest Pain Chief Complaint (Provider): Chest Pain History Per: Patient Onset/Duration Of Symptoms: Days (yesterday) Current Symptoms Are (Timing): Still Present Additional Complaint(s): 87 year old female with a history of asthma, hypertension, and chronic kidney disease presents to the Ed with chest pressure for one day. She reports weakness and constipation for one month. Patient was recently admitted under Dr. Damico for frequent falls and discharged on 01/11/18. She denies fever, chills, chest pain, shortness of breath or any other medical complaints. HPI is limited due to age. PMD: Dr. Saleem Past Medical History Reviewed: Historical Data, Nursing Documentation, Vital Signs Vital Signs: Last Vital Signs Temp 97.6 F 01/15/18 14:01 Pulse 71 01/15/18 14:01 Resp 19 01/15/18 14:01 BP 128/70 01/15/18 14:01 Pulse Ox 98 01/15/18 14:01 - Medical History PMH: Asthma, Fractures (Right humerus), HTN, Chronic Kidney Disease Denies: HIV - Family History Family History: States: Unknown Family Hx - Home Medications Home Medications: Ambulatory Orders Medication Instructions Recorded RX: Albuterol Sulfate [Proair Hfa] 2 puff IH Q4H PRN 03/25/17 RX: Gabapentin [Neurontin] 300 mg PO DAILY 03/25/17 RX: Metoprolol Succinate XL 25 mg PO DAILY 03/25/17 [Toprol XL] RX: Multivitamin [Multi-Vitamin 1 tab PO DAILY 03/25/17 Daily] RX: amLODIPine [Norvasc] 10 mg PO DAILY 03/25/17 RX: Docusate Sodium/Sennosides A 2 tab PO HS tab 12/22/17 [Senokot S 50 MG-8.6 MG] RX: Docusate [Colace] 100 mg PO BID cap 12/22/17 RX: Lidocaine 5% [Lidoderm] 1 ea TD DAILY patch 12/22/17 RX: Pantoprazole [Protonix EC Tab] 40 mg PO DAILY ect 12/22/17 RX: guaiFENesin [Mucinex LA] 600 mg PO Q12 tab 12/22/17 Donepezil [Aricept] 10 mg PO DAILY 01/15/18 Furosemide [Lasix] 20 mg PO DAILY 01/15/18 Meloxicam [Mobic] 15 mg PO DAILY 01/15/18 Memantine HCl [Namenda Xr] 7 mg PO DAILY 01/15/18 RX: Trazodone HCl 50 mg PO DAILY 01/15/18 RX: traMADol [Ultram] 50 mg PO DAILY 01/15/18 - Allergies Allergies/Adverse Reactions: Allergies Allergy/AdvReac Type Severity Reaction Status Date / Time No Known Allergies Allergy Verified 01/15/18 13:33 Review of Systems ROS Statement: Except As Marked, All Systems Reviewed And Found Negative Constitutional: Negative for: Fever, Chills Cardiovascular: Positive for: Other (chest pressure). Negative for: Chest Pain Respiratory: Negative for: Shortness of Breath Gastrointestinal: Positive for: Constipation Neurological: Positive for: Weakness Physical Exam - Reviewed Nursing Documentation Reviewed: Yes - Physical Exam Appears: Positive for: Non-toxic, No Acute Distress Head Exam: Positive for: ATRAUMATIC, NORMOCEPHALIC Skin: Positive for: Normal Color, Warm, Dry Eye Exam: Positive for: Normal appearance, EOMI, PERRL Neck: Positive for: Normal Cardiovascular/Chest: Positive for: Regular Rate, Rhythm. Negative for: Murmur Respiratory: Positive for: Normal Breath Sounds. Negative for: Respiratory Distress Extremity: Positive for: Normal ROM (upper and lower). Negative for: Pedal Edema, Deformity Neurologic/Psych: Positive for: Alert, Oriented (x3). Negative for: Mot or/Sensory Deficits - Laboratory Results Result Diagrams: 01/15/18 15:58 01/15/18 15:58 - ECG ECG: Positive for: Interpreted By Me ECG Rhythm: Positive for: Normal QRS, Normal ST Segment, Sinus Rhythm (normal) Interpretation Of ECG: left axis deviation Rate: 64 O2 Sat by Pulse Oximetry: 98 Medical Decision Making Medical Decision Making: Time: 1438 Initial Impression: Chest pressure Differential diagnoses include but are not limited to: ACS, PE, and other conditions are considered Initial Plan: --EKG --BNP --BMP --Troponin --Dipstick --CBC with differentials --D Dimer --PTT --PT --CXR Time: 1500 --Patient signed out to Dr. Guajardo by this provider, pending chest x ray and labs. Scribe Attestation: Documented by Jennifer Jara, acting as a scribe for Yung Yin MD Provider Scribe Attestation: All medical record entries made by the Scribe were at my direction and personally dictated by me. I have reviewed the chart and agree that the record accurately reflects my personal performance of the history, physical exam, medical decision making, and the department course for this patient. I have also personally directed, reviewed, and agree with the discharge instructions and disposition. Disposition - Clinical Impression Clinical Impression: Chest pain - Patient ED Disposition Is Patient to be Admitted: Transfer of Care Counseled Patient/Family Regarding: Studies Performed, Diagnosis - Disposition Disposition: Transfer of Care Disposition Time: 15:00 Condition: STABLE Patient Signed Over To: Melissa Guajardo
--- NOTE | 2018-01-15 15:21 | RAD ---
Date of service: 01/15/2018 HISTORY: chest pain COMPARISON: Portable chest 01/09/2018. FINDINGS: LUNGS: No acute alveolitis bilaterally. Mild interstitial changes are identified bilaterally, chronic PLEURA: No significant pleural effusion identified, no pneumothorax apparent. CARDIOVASCULAR: Calcific atherosclerotic changes are seen related to the thoracic aorta. Mild cardiomegaly, borderline pulmonary vascular congestion. OSSEOUS STRUCTURES: No significant abnormalities. VISUALIZED UPPER ABDOMEN: Normal. OTHER FINDINGS: None. IMPRESSION: Borderline pulmonary vascular congestion. No acute alveolitis bilaterally. Chronic interstitial pulmonary changes are stable. Stable cardiomegaly.
--- NOTE | 2018-01-15 15:21 | ED PDOC ---
- Laboratory Results Result Diagrams: 01/15/18 15:58 01/15/18 15:58 - ECG O2 Sat by Pulse Oximetry: 98 Pulse Ox Interpretation: Normal Medical Decision Making Medical Decision Making: Time: 1500 --Patient signed out to this provider by Dr. Yin, pending chest x ray and labs. --Pt with elevated D-dimer. Will get CT angio chest to rule out PE. Most likely for admission. Pt without DVT or PE. Pt to be admitted for ACS. --- Scribe Attestation: Documented by Jennifer Jara, acting as a scribe for Melissa Guajardo MD Provider Scribe Attestation: All medical record entries made by the Scribe were at my direction and personally dictated by me. I have reviewed the chart and agree that the record accurately reflects my personal performance of the history, physical exam, medical decision making, and the department course for this patient. I have also personally directed, reviewed, and agree with the discharge instructions and disposition. Disposition - Clinical Impression Clinical Impression: Chest pain, Atypical chest pain - POA Present On Arrival: None - Disposition Disposition: Admitted as In-Patient Disposition Time: 19:39 Condition: STABLE
[2018-01-15 16:02] LABS: BASO # 0.1 K/uL (0.0-0.2); BASO % 1.4 % (0.0-2.0); EOS # 0.1 K/uL (0.0-0.7); EOS % 2.5 % (0.0-4.0); HEMOGLOBIN 10.8 g/dL (12.0-16.0); LYMPH # 1.7 K/uL (1.0-4.3); LYMPH % 31.3 % (20.0-40.0); MEAN CELL VOLUME 90.7 fl (81.0-99.0); MEAN CORPUSCULAR HEMOGLOBIN 29.8 pg (27.0-31.0); MEAN CORPUSCULAR HGB CONC 32.9 g/dL (33.0-37.0); MEAN PLATELET VOLUME 7.9 fl (7.2-11.7); MONO # 0.7 K/uL (0.0-0.8); MONO % 12.6 % (0.0-10.0); NEUT # 2.8 K/uL (1.8-7.0); NEUT % 52.2 % (50.0-75.0); NRBC % 0.1 % (0.0-0.0); RBC 3.6 Mil/uL (3.80-5.20); WHITE BLOOD COUNT 5.4 K/uL (4.8-10.8)
[2018-01-15 16:07] LABS: PROTHROMBIN TIME 11.9 Seconds (9.8-13.1)
[2018-01-15 16:10] LABS: PARTIAL THROMBOPLASTIN TIME 29.8 Seconds (25.6-37.1)
[2018-01-15 16:23] LABS: B-TYPE NATRIURETIC PEPTIDE 489 pg/ml (0-900); BLOOD UREA NITROGEN 22 mg/dl (7-17); CALCIUM 9.2 mg/dL (8.4-10.2); GFR NON-AFRICAN AMERICAN 42
[2018-01-15] MEDS ORDERED: Sodium Chloride 0.9% 50 ML IV ONE (17:28)
[2018-01-15] MEDS ORDERED: Iohexol 300 100 ML IJ ONE (17:28)
[2018-01-15] MEDS ORDERED: Oxycodone/Acetaminophen 5/325 mg Tab PO STA (17:54)
--- NOTE | 2018-01-15 22:37 | CARD ---
APPROVED REPORT Date of service: 01/15/2018 EKG Measurement Heart [id number] <Conclusion> Normal sinus rhythm Left axis deviation Abnormal ECG
[2018-01-16] MEDS ORDERED: Oxycodone/Acetaminophen 5/325 mg Tab PO PRN (01:40)
[2018-01-16] MEDS ORDERED: Enoxaparin 40 mg Syringe SC SCH (09:00)
[2018-01-16] MEDS: Pantoprazole 40 mg EC Tab PO SCH (11:30)
[2018-01-16] MEDS: Enoxaparin 30 mg Syringe SC SCH (11:31)
[2018-01-16] MEDS: Lidocaine 5% Patch TD SCH (11:34)
--- NOTE | 2018-01-16 11:34 | CT ---
Date of service: 01/15/2018 PROCEDURE: CT Chest with contrast (Pulmonary Angiogram) HISTORY: chest tightness with elev. ddimer COMPARISON: None available. TECHNIQUE: Axial computed tomography images were obtained of the chest in the pulmonary arterial phase of enhancement. Coronal and sagittal reformatted images were created and reviewed. Intravenous contrast dose: Omnipaque 300, 95 cc Radiation dose: Total exam DLP = 383.48 mGy-cm. This CT exam was performed using one or more of the following dose reduction techniques: Automated exposure control, adjustment of the mA and/or kV according to patient size, and/or use of iterative reconstruction technique. FINDINGS: PULMONARY ARTERIES: Unremarkable. No pulmonary embolism. AORTA: Calcific atherosclerotic changes are seen related to the thoracic aorta. Prominent descending segment ectasis appreciated. LUNGS: No infiltrate or central airway lesion identified. In image 38 series 5, there is a calcified granuloma measuring 3.7 mm. A small nodule seen the right upper lobe laterally in image 42 measuring 3.8 mm. Finally, a 5 mm nodule seen the left lower lobe in image 63. PLEURAL SPACES: Unremarkable. No effusion or pneumothorax. HEART: Coronary artery atherosclerosis identified. Cardiomegaly is appreciated [id number] size. No significant pericardial effusion. LYMPH NODES: No lymphadenopathy. BONES, CHEST WALL: Diffuse osteopenia suggests osteoporosis. There is a severe anterior wedge compression fracture of T8 vertebral body, of indeterminate age. Additional minimal compression fracture of T9, T10 and T8 are likely as well. No retropulsed fragments. OTHER FINDINGS: Unremarkable. IMPRESSION: 1. No CT evidence of pulmonary embolism. 2. No acute infiltrate, pleural or pericardial effusion identified. 3. A few nodules are identified right upper and left lower lobes. Follow-up CT in 12 months is demonstrated using low-dose chest CT technique without contrast. Lung RAD 2 4. Severe anterior wedge compression fracture T8 with lesser compression fractures involving T9, T10 and T11, age indeterminate. Concordant preliminary report from [facility], 01/15/2018.
[2018-01-16] MEDS: Metoprolol Succinate 25 mg XL Tab PO SCH (11:40)
[2018-01-16] MEDS ORDERED: Albuterol-Ipratrop 3 mg / 0.5 (3 ml) UD INH PRN (13:12)
--- NOTE | 2018-01-16 21:01 | CP.PCM.HP ---
History of Present Illness - History of Present Illness History of Present Illness: CC: Chest Pain and Frequent Fall History of Present Illness: A 87 year old female with a history of asthma, hypertension, and chronic kidney disease presents to the Ed with chest pressure for one day. She reports weakness and constipation for one month. Patient was recently admitted under my service for frequent falls and discharged on 01/11/18. As per Niece, patient has fallen three times and was found on the ground by the niece. H/O FAll, and Had fracture to the Right Humerus. +Pain to the Right arm She denies fever, chills, shortness of breath or any other medical complaints. Present on Admission - Present on Admission Any Indicators Present on Admission: No Review of Systems - Review of Systems All systems: reviewed and no additional remarkable complaints except Review of Systems: as per HPI Past Patient History - Past Medical History & Family History Past Medical History?: Yes Past Family History: Reviewed and not pertinent - Past Social History Smoking Status: Former Smoker Alcohol: None Drugs: Denies - CARDIAC Hx Hypertension: Yes - PULMONARY Hx Asthma: Yes - NEUROLOGICAL Hx Neurological Disorder: No - HEENT Hx HEENT Problems: No - RENAL Hx Chronic Kidney Disease: Yes - ENDOCRINE/METABOLIC Hx Endocrine Disorders: No - HEMATOLOGICAL/ONCOLOGICAL Hx Human Immunodeficiency Virus (HIV): No - INTEGUMENTARY Hx Dermatological Problems: No - MUSCULOSKELETAL/RHEUMATOLOGICAL Hx Fractures: Yes (Right humerus) - GASTROINTESTINAL Hx Gastrointestinal Disorders: Yes Hx Constipation: Yes - GENITOURINARY/GYNECOLOGICAL Hx Genitourinary Disorders: No - PSYCHIATRIC Hx Psychophysiologic Disorder: No Hx Substance Use: No - SURGICAL HISTORY Hx Surgeries: No - ANESTHESIA Hx Anesthesia: Yes Hx Anesthesia Reactions: No Hx Malignant Hyperthermia: No Meds Home Medications: Home Medication List Medication Instructions Recorded Confirmed Type Albuterol/Ipratropium [Duoneb 3 3 ml INH RQ6 PRN neb 01/19/18 Rx mg/0.5 mg (3 ml) UD] Enoxaparin [Lovenox] 30 mg SC DAILY syr 01/19/18 Rx Memantine [Namenda] 10 mg PO BID tab 01/19/18 Rx Venlafaxine [Effexor] 37.5 mg PO DAILY tab 01/19/18 Rx Allergies/Adverse Reactions: Allergies Allergy/AdvReac Type Severity Reaction Status Date / Time No Known Allergies Allergy Verified 01/15/18 13:33 Physical Exam - Constitutional Appears: Well, No Acute Distress, Chronically Ill - Head Exam Head Exam: ATRAUMATIC, NORMAL INSPECTION, NORMOCEPHALIC - Eye Exam Eye Exam: EOMI, Normal appearance, PERRL Pupil Exam: NORMAL ACCOMODATION, PERRL - ENT Exam ENT Exam: Mucous Membranes Moist, Normal Exam - Neck Exam Neck exam: Positive for: Full Rom, Normal Inspection - Respiratory Exam Respiratory Exam: Clear to Auscultation Bilateral, NORMAL BREATHING PATTERN - Cardiovascular Exam Cardiovascular Exam: REGULAR RHYTHM, +S1, +S2 - GI/Abdominal Exam GI & Abdominal Exam: Normal Bowel Sounds, Soft. absent: Tenderness - Extremities Exam Extremities exam: Positive for: normal capillary refill, tenderness - Back Exam Back exam: FULL ROM, NORMAL INSPECTION - Neurological Exam Neurological exam: Abnormal Gait, Alert, CN II-XII Intact, Oriented x3, Reflexes Normal - Psychiatric Exam Psychiatric exam: Normal Affect, Normal Mood - Skin Skin Exam: Dry, Intact, Normal Color, Warm Results - Vital Signs Recent Vital Signs: Last Vital Signs Temp 97.3 F L 01/16/18 20:30 Pulse 67 01/16/18 20:30 Resp 18 01/16/18 20:30 BP 137/70 01/16/18 20:30 Pulse Ox 97 01/16/18 20:30 - Labs Result Diagrams: 01/15/18 15:58 01/15/18 15:58 Labs: Laboratory Results - last 24 hr 01/16/18 01/16/18 02:30 10:34 Troponin I < 0.0120 < 0.0120 - EKG Data EKG Interpreted by: Myself EKG shows normal: Sinus rhythm, QRS complexes, ST-T waves Rate: Normal - Imaging and Cardiology Chest x-ray Status: Report reviewed by me Additional comment: Date of service: 01/15/2018 HISTORY: chest pain COMPARISON: Portable chest 01/09/2018. FINDINGS: LUNGS: No acute alveolitis bilaterally. Mild interstitial changes are identified bilaterally, chronic PLEURA: No significant pleural effusion identified, no pneumothorax apparent. CARDIOVASCULAR: Calcific atherosclerotic changes are seen related to the thoracic aorta. Mild cardiomegaly, borderline pulmonary vascular congestion. OSSEOUS STRUCTURES: No significant abnormalities. VISUALIZED UPPER ABDOMEN: Normal. OTHER FINDINGS: None. IMPRESSION: Borderline pulmonary vascular congestion. No acute alveolitis bilaterally. Chronic interstitial pulmonary changes are stable. Stable cardiomegaly. CT scan - chest Status: Report reviewed by me Additional comment: Date of service: 01/15/2018 PROCEDURE: CT Chest with contrast (Pulmonary Angiogram) HISTORY: chest tightness with elev. ddimer COMPARISON: None available. TECHNIQUE: Axial computed tomography images were obtained of the chest in the pulmonary arterial phase of enhancement. Coronal and sagittal reformatted images were created and reviewed. Intravenous contrast dose: Omnipaque 300, 95 cc Radiation dose: Total exam DLP = 383.48 mGy-cm. This CT exam was performed using one or more of the following dose reduction techniques: Automated exposure control, adjustment of the mA and/or kV according to patient size, and/or use of iterative reconstruction technique. FINDINGS: PULMONARY ARTERIES: Unremarkable. No pulmonary embolism. AORTA: Calcific atherosclerotic changes are seen related to the thoracic aorta. Prominent descending segment ectasis appreciated. LUNGS: No infiltrate or central airway lesion identified. In image 38 series 5, there is a calcified granuloma measuring 3.7 mm. A small nodule seen the right upper lobe laterally in image 42 measuring 3.8 mm. Finally, a 5 mm nodule seen the left lower lobe in image 63. PLEURAL SPACES: Unremarkable. No effusion or pneumothorax. HEART: Coronary artery atherosclerosis identified. Cardiomegaly is appreciated [id number] size. No significant pericardial effusion. LYMPH NODES: No lymphadenopathy. BONES, CHEST WALL: Diffuse osteopenia suggests osteoporosis. There is a severe anterior wedge compression fracture of T8 vertebral body, of indeterminate age. Additional minimal compression fracture of T9, T10 and T8 are likely as well. No retropulsed fragments. OTHER FINDINGS: Unremarkable. IMPRESSION: 1. No CT evidence of pulmonary embolism. 2. No acute infiltrate, pleural or pericardial effusion identified. 3. A few nodules are identified right upper and left lower lobes. Follow-up CT in 12 months is demonstrated using low-dose chest CT technique without contrast. Lung RAD 2 4. Severe anterior wedge compression fracture T8 with lesser compression fractures involving T9, T10 and T11, age indeterminate. 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
--- NOTE | 2018-01-16 21:03 | CP.PCM.PN ---
Subjective - Date & Time of Evaluation Date of Evaluation: 01/16/18 Time of Evaluation: 18:25 Objective - Vital Signs/Intake and Output Vital Signs (last 24 hours): Temp Pulse Resp BP Pulse Ox 97.3 F L 67 18 137/70 97 01/16/18 20:30 01/16/18 20:30 01/16/18 20:30 01/16/18 20:30 01/16/18 20:30 Intake and Output: 01/16/18 01/17/18 18:59 06:59 Intake Total 1200 Balance 1200 - Medications Medications: Current Medications Albuterol/Ipratropium (Duoneb 3 Mg/0.5 Mg (3 Ml) Ud) 3 ml INH RQ6 PRN PRN Reason: Shortness of Breath Amlodipine Besylate (Norvasc) 10 mg PO DAILY [facility] Last Admin: 01/16/18 11:39 Dose: 10 mg Docusate Sodium (Colace) 100 mg PO BID [facility] Last Admin: 01/16/18 18:13 Dose: 100 mg Donepezil HCl (Aricept) 10 mg PO DAILY [facility] Last Admin: 01/16/18 11:37 Dose: 10 mg Enoxaparin Sodium (Lovenox) 30 mg SC DAILY [facility]; Protocol Last Admin: 01/16/18 11:31 Dose: 30 mg Furosemide (Lasix) 20 mg PO DAILY [facility] Last Admin: 01/16/18 11:38 Dose: 20 mg Gabapentin (Neurontin) 300 mg PO DAILY [facility] Last Admin: 01/16/18 11:38 Dose: 300 mg Lidocaine (Lidoderm) 1 ea TD DAILY [facility] Last Admin: 01/16/18 11:34 Dose: 1 ea Memantine (Namenda) 10 mg PO BID [facility] Last Admin: 01/16/18 16:52 Dose: 10 mg Metoprolol Succinate (Toprol Xl) 25 mg PO DAILY [facility] Last Admin: 01/16/18 11:40 Dose: 25 mg Oxycodone/Acetaminophen (Percocet 5/325 Mg Tab) 1 tab PO Q6 PRN PRN Reason: Pain, moderate (4-7) Stop: 01/19/18 04:01 Last Admin: 01/16/18 01:45 Dose: 1 tab Pantoprazole Sodium (Protonix Ec Tab) 40 mg PO DAILY [facility] Last Admin: 01/16/18 11:30 Dose: 40 mg Senna/Docusate Sodium (Senokot S 50 Mg-8.6 Mg) 2 tab PO HS [facility] Tramadol HCl (Ultram) 50 mg PO DAILY [facility] Last Admin: 01/16/18 11:43 Dose: 50 mg Trazodone HCl (Desyrel) 50 mg PO DAILY [facility] - Labs Labs: 01/15/18 15:58 01/15/18 15:58 PT 11.9 Seconds (9.8-13.1) 01/15/18 15:58 INR 1.0 01/15/18 15:58 APTT 29.8 Seconds (25.6-37.1) 01/15/18 15:58
[2018-01-16] MEDS: Docusate-Senna 50 mg-8.6 mg Tab PO SCH (21:27)
[2018-01-17] MEDS: Enoxaparin 30 mg Syringe SC SCH (09:10)
[2018-01-17] MEDS: Pantoprazole 40 mg EC Tab PO SCH (09:13)
[2018-01-17] MEDS: Metoprolol Succinate 25 mg XL Tab PO SCH (09:14)
[2018-01-17] MEDS: Lidocaine 5% Patch TD SCH (09:26)
[2018-01-17] MEDS: Docusate-Senna 50 mg-8.6 mg Tab PO SCH (21:50)
--- NOTE | 2018-01-18 | CP.PCM.PN ---
Subjective - Date & Time of Evaluation Date of Evaluation: 01/17/18 Objective - Vital Signs/Intake and Output Vital Signs (last 24 hours): Temp Pulse Resp BP Pulse Ox 97.6 F 66 18 122/65 97 01/17/18 20:16 01/17/18 20:16 01/17/18 20:16 01/17/18 20:16 01/17/18 20:16 - Medications Medications: Current Medications Albuterol/Ipratropium (Duoneb 3 Mg/0.5 Mg (3 Ml) Ud) 3 ml INH RQ6 PRN PRN Reason: Shortness of Breath Amlodipine Besylate (Norvasc) 10 mg PO DAILY [facility] Last Admin: 01/17/18 09:13 Dose: 10 mg Docusate Sodium (Colace) 100 mg PO BID [facility] Last Admin: 01/17/18 17:31 Dose: 100 mg Donepezil HCl (Aricept) 10 mg PO DAILY [facility] Last Admin: 01/17/18 09:06 Dose: 10 mg Enoxaparin Sodium (Lovenox) 30 mg SC DAILY [facility]; Protocol Last Admin: 01/17/18 09:10 Dose: 30 mg Furosemide (Lasix) 20 mg PO DAILY [facility] Last Admin: 01/17/18 09:08 Dose: 20 mg Gabapentin (Neurontin) 300 mg PO DAILY [facility] Last Admin: 01/17/18 09:13 Dose: 300 mg Lidocaine (Lidoderm) 1 ea TD DAILY [facility] Last Admin: 01/17/18 09:26 Dose: Not Given Memantine (Namenda) 10 mg PO BID [facility] Last Admin: 01/17/18 17:32 Dose: 10 mg Metoprolol Succinate (Toprol Xl) 25 mg PO DAILY [facility] Last Admin: 01/17/18 09:14 Dose: 25 mg Oxycodone/Acetaminophen (Percocet 5/325 Mg Tab) 1 tab PO Q6 PRN PRN Reason: Pain, moderate (4-7) Stop: 01/19/18 04:01 Last Admin: 01/16/18 01:45 Dose: 1 tab Pantoprazole Sodium (Protonix Ec Tab) 40 mg PO DAILY [facility] Last Admin: 01/17/18 09:13 Dose: 40 mg Quetiapine Fumarate (Seroquel) 25 mg PO HS [facility] Last Admin: 01/17/18 21:50 Dose: 25 mg Senna/Docusate Sodium (Senokot S 50 Mg-8.6 Mg) 2 tab PO HS [facility] Last Admin: 01/17/18 21:50 Dose: 2 tab Tramadol HCl (Ultram) 50 mg PO DAILY [facility] Last Admin: 01/17/18 09:44 Dose: 50 mg Trazodone HCl (Desyrel) 50 mg PO DAILY [facility] Last Admin: 01/17/18 09:08 Dose: 50 mg - Labs Labs: 01/15/18 15:58 01/15/18 15:58 PT 11.9 Seconds (9.8-13.1) 01/15/18 15:58 INR 1.0 01/15/18 15:58 APTT 29.8 Seconds (25.6-37.1) 01/15/18 15:58
[2018-01-18] MEDS: Enoxaparin 30 mg Syringe SC SCH (09:14)
[2018-01-18] MEDS: Lidocaine 5% Patch TD SCH (09:17)
[2018-01-18] MEDS: Pantoprazole 40 mg EC Tab PO SCH (09:23)
[2018-01-18] MEDS: Metoprolol Succinate 25 mg XL Tab PO SCH (09:23)
--- NOTE | 2018-01-18 12:02 | CP.PCM.CON ---
History of Present Illness - History of Present Illness History of Present Illness: consult requested for depression 87 year old female, without previous formal psychiatric treatment diagnosed with dementia , with a medical history of asthma, hypertension, and chronic kidney disease presents to the Ed with chest pressure for one day. She reports weakness and constipation for one month. pt has been refusing to cooperate with physical therapy and noted refusing to attempt to walk on evaluation pt noted to be sedated with underproductive speech , partial eye contact, mood reported tired, affect depressed and constricted ,reported feeling down for being lonely and because of her medical condition , pt denied suicidal or homicidal ideation denied perceptual disturbances Past Patient History - Past Medical History & Family History Past Medical History?: Yes - Past Social History Smoking Status: Former Smoker - CARDIAC Hx Hypertension: Yes - PULMONARY Hx Asthma: Yes - NEUROLOGICAL Hx Neurological Disorder: No - HEENT Hx HEENT Problems: No - RENAL Hx Chronic Kidney Disease: Yes - ENDOCRINE/METABOLIC Hx Endocrine Disorders: No - HEMATOLOGICAL/ONCOLOGICAL Hx Human Immunodeficiency Virus (HIV): No - INTEGUMENTARY Hx Dermatological Problems: No - MUSCULOSKELETAL/RHEUMATOLOGICAL Hx Fractures: Yes (Right humerus) - GASTROINTESTINAL Hx Gastrointestinal Disorders: Yes Hx Constipation: Yes - GENITOURINARY/GYNECOLOGICAL Hx Genitourinary Disorders: No - PSYCHIATRIC Hx Psychophysiologic Disorder: No Hx Substance Use: No - SURGICAL HISTORY Hx Surgeries: No - ANESTHESIA Hx Anesthesia: Yes Hx Anesthesia Reactions: No Hx Malignant Hyperthermia: No Meds Allergies/Adverse Reactions: Allergies Allergy/AdvReac Type Severity Reaction Status Date / Time No Known Allergies Allergy Verified 01/15/18 13:33 - Medications Medications: Current Medications Albuterol/Ipratropium (Duoneb 3 Mg/0.5 Mg (3 Ml) Ud) 3 ml INH RQ6 PRN PRN Reason: Shortness of Breath Amlodipine Besylate (Norvasc) 10 mg PO DAILY [facility] Last Admin: 01/18/18 09:21 Dose: 10 mg Docusate Sodium (Colace) 100 mg PO BID [facility] Last Admin: 01/18/18 09:20 Dose: 100 mg Donepezil HCl (Aricept) 10 mg PO DAILY [facility] Last Admin: 01/18/18 09:19 Dose: 10 mg Enoxaparin Sodium (Lovenox) 30 mg SC DAILY [facility]; Protocol Last Admin: 01/18/18 09:14 Dose: 30 mg Furosemide (Lasix) 20 mg PO DAILY [facility] Last Admin: 01/18/18 09:20 Dose: 20 mg Gabapentin (Neurontin) 300 mg PO DAILY [facility] Last Admin: 01/18/18 09:21 Dose: 300 mg Lidocaine (Lidoderm) 1 ea TD DAILY [facility] Last Admin: 01/18/18 09:17 Dose: 1 ea Memantine (Namenda) 10 mg PO BID [facility] Last Admin: 01/18/18 09:21 Dose: 10 mg Metoprolol Succinate (Toprol Xl) 25 mg PO DAILY [facility] Last Admin: 01/18/18 09:23 Dose: 25 mg Oxycodone/Acetaminophen (Percocet 5/325 Mg Tab) 1 tab PO Q6 PRN PRN Reason: Pain, moderate (4-7) Stop: 01/19/18 04:01 Last Admin: 01/16/18 01:45 Dose: 1 tab Pantoprazole Sodium (Protonix Ec Tab) 40 mg PO DAILY [facility] Last Admin: 01/18/18 09:23 Dose: 40 mg Quetiapine Fumarate (Seroquel) 25 mg PO HS [facility] Last Admin: 01/17/18 21:50 Dose: 25 mg Senna/Docusate Sodium (Senokot S 50 Mg-8.6 Mg) 2 tab PO HS [facility] Last Admin: 01/17/18 21:50 Dose: 2 tab Tramadol HCl (Ultram) 50 mg PO DAILY [facility] Last Admin: 01/18/18 09:30 Dose: 50 mg Trazodone HCl (Desyrel) 50 mg PO DAILY [facility] Last Admin: 01/18/18 09:20 Dose: 50 mg Results - Vital Signs Recent Vital Signs: Last Vital Signs Temp 98.5 F 01/18/18 08:54 Pulse 64 01/18/18 09:23 Resp 20 01/18/18 08:54 BP 152/75 H 01/18/18 09:23 Pulse Ox 97 01/18/18 08:54 - Labs Result Diagrams: 01/15/18 15:58 01/15/18 15:58 Assessment & Plan - Assessment and Plan (Free Text) Assessment: mood disorder due to medical condition with depressive features adjustment disorder with depressed mood Plan: recommend discontinue trazodone 50 mg dialy, start trazodone 25mg qhs discontinue seroquel 50mg discontinue neurontin 300mg daily start neurontin 100mg tid prn for anxiety/ pain start effexor xr 37.5mg daily
[2018-01-18] MEDS: Docusate-Senna 50 mg-8.6 mg Tab PO SCH (21:19)
[2018-01-19] MEDS: Lidocaine 5% Patch TD SCH (09:16)
[2018-01-19] MEDS: Enoxaparin 30 mg Syringe SC SCH ×2 (09:22→09:29)
[2018-01-19] MEDS: Pantoprazole 40 mg EC Tab PO SCH (09:24)
[2018-01-19] MEDS: Metoprolol Succinate 25 mg XL Tab PO SCH (09:25)
[2018-01-19 19:58] VITALS: RESP 18
[2018-01-19 20:11] VITALS: BP 126/65; PULSE 64; TEMP 98.1; O2SAT 98
--- NOTE | 2018-01-21 00:37 | CP.PCM.PN ---
Subjective - Date & Time of Evaluation Date of Evaluation: 01/18/18 Time of Evaluation: 18:20 Objective - Vital Signs/Intake and Output Vital Signs (last 24 hours): Temp Pulse Resp BP Pulse Ox 98.1 F 64 18 126/65 98 01/19/18 20:11 01/19/18 20:11 01/19/18 20:11 01/19/18 20:11 01/19/18 22:57 - Labs Labs: 01/15/18 15:58 01/15/18 15:58 PT 11.9 Seconds (9.8-13.1) 01/15/18 15:58 INR 1.0 01/15/18 15:58 APTT 29.8 Seconds (25.6-37.1) 01/15/18 15:58
--- NOTE | 2018-01-21 00:39 | CP.PCM.DIS ---
Provider - Provider Date of Admission: 01/18/18 00:46 Attending physician: Melinda Damico MD Time Spent in preparation of Discharge (in minutes): 25 Diagnosis - Discharge Diagnosis (1) Adjustment disorder Status: Acute Priority: High (2) Dementia Status: Acute Priority: Medium (3) Back pain Status: Chronic Priority: Low (4) Chest pain Status: Acute Priority: Medium (5) Falls frequently Status: Acute Priority: High (6) Asthma Status: Chronic Priority: Low (7) Humeral surgical neck fracture Status: Chronic Priority: Medium (8) Hypertension Status: Chronic Priority: Medium Hospital Course - Lab Results Lab Results: Most Recent Lab Values WBC 5.4 K/uL (4.8-10.8) 01/15/18 15:58 RBC 3.60 Mil/uL (3.80-5.20) L 01/15/18 15:58 Hgb 10.8 g/dL (12.0-16.0) L 01/15/18 15:58 Hct 32.7 % (34.0-47.0) L 01/15/18 15:58 MCV 90.7 fl (81.0-99.0) 01/15/18 15:58 MCH 29.8 pg (27.0-31.0) 01/15/18 15:58 MCHC 32.9 g/dL (33.0-37.0) L 01/15/18 15:58 RDW 15.0 % (11.5-14.5) H 01/15/18 15:58 Plt Count 532 K/uL (130-400) H 01/15/18 15:58 MPV 7.9 fl (7.2-11.7) 01/15/18 15:58 Neut % (Auto) 52.2 % (50.0-75.0) 01/15/18 15:58 Lymph % (Auto) 31.3 % (20.0-40.0) 01/15/18 15:58 [place] % (Auto) 12.6 % (0.0-10.0) H 01/15/18 15:58 Eos % (Auto) 2.5 % (0.0-4.0) 01/15/18 15:58 Baso % (Auto) 1.4 % (0.0-2.0) 01/15/18 15:58 Neut # (Auto) 2.8 K/uL (1.8-7.0) 01/15/18 15:58 Lymph # (Auto) 1.7 K/uL (1.0-4.3) 01/15/18 15:58 [place] # (Auto) 0.7 K/uL (0.0-0.8) 01/15/18 15:58 Eos # (Auto) 0.1 K/uL (0.0-0.7) 01/15/18 15:58 Baso # (Auto) 0.1 K/uL (0.0-0.2) 01/15/18 15:58 PT 11.9 Seconds (9.8-13.1) 01/15/18 15:58 INR 1.0 01/15/18 15:58 APTT 29.8 Seconds (25.6-37.1) 01/15/18 15:58 D-Dimer, Quantitative 2013 ng/mlDDU (0-230) H 01/15/18 15:58 Sodium 142 mmol/l (132-148) 01/15/18 15:58 Potassium 4.1 MMOL/L (3.6-5.0) 01/15/18 15:58 Chloride 106 mmol/L (98-107) 01/15/18 15:58 Carbon Dioxide 27 mmol/L (22-30) 01/15/18 15:58 Anion Gap 13 (10-20) 01/15/18 15:58 BUN 22 mg/dl (7-17) H 01/15/18 15:58 Creatinine 1.2 mg/dl (0.7-1.2) 01/15/18 15:58 Est GFR ( Amer) 51 01/15/18 15:58 Est GFR (Non-Af Amer) 42 01/15/18 15:58 Random Glucose 120 mg/dL (65-105) H 01/15/18 15:58 Calcium 9.2 mg/dL (8.4-10.2) 01/15/18 15:58 Troponin I < 0.0120 ng/mL (0.00-0.120) 01/16/18 10:34 NT-Pro-B Natriuret Pep 489 pg/ml (0-900) 01/15/18 15:58 Discharge Exam - Head Exam Head Exam: ATRAUMATIC, NORMOCEPHALIC Discharge Plan - Follow Up Plan Condition: STABLE Disposition: DISCHARGE TO [facility] Instructions: Chest Pain (DC) Referrals: Melinda Damico MD [Staff Provider] -
--- NOTE | 2018-01-21 22:39 | PQF ---
PROVIDER RESPONSE TEXT: Atypical Chest Pain REVIEWER QUERY TEXT: Symptom Underlying Cause Please document the underlying diagnosis causing the patient?s documented symptom(s) of chest pain or whether those are insignificant or unable to be further specified. The patient's Clinical Indicators include: xxx Query created by: Tamiko Condon on 01/20/2018 11:51 AM Electronically signed by: Melinda Damico MD 01/21/2018 10:36 PM
== END 2018-01-19 21:00 | DRG 313 ==
LOC: H.ER 13:18 → H.ERHOLD 19:39 → H.TEL 01-16 03:11 → OBSVTOIN 01-18 00:46
PROVIDERS: ADMIT Internal Medicine; ATTEND Internal Medicine
DX: R07.89 Other chest pain (principal); M48.54XA Collapsed vertebra, not elsewhere classified, thoracic region, initial encounter for fracture; F43.21 Adjustment disorder with depressed mood; K59.00 Constipation, unspecified; R79.1 Abnormal coagulation profile; Z87.891 Personal history of nicotine dependence; J45.909 Unspecified asthma, uncomplicated; I12.9 Hypertensive chronic kidney disease with stage 1 through stage 4 chronic kidney disease, or unspecified chronic kidney disease; N18.9 Chronic kidney disease, unspecified; Z79.1 Long term (current) use of non-steroidal anti-inflammatories (NSAID); Z79.51 Long term (current) use of inhaled steroids; F03.90 Unspecified dementia, unspecified severity, without behavioral disturbance, psychotic disturbance, mood disturbance, and anxiety; R91.8 Other nonspecific abnormal finding of lung field; G89.29 Other chronic pain; M84.421D Pathological fracture, right humerus, subsequent encounter for fracture with routine healing; R29.6 Repeated falls

== ENCOUNTER 2018-01-19 21:07 | Inpatient (IN) | payer MEDICARE ==
[2018-01-19 21:13] VITALS: BMI 24.7
[2018-01-19] MEDS ORDERED: Magnesium Hydroxide Susp 30 ml UD PO PRN (21:40)
[2018-01-19] MEDS ORDERED: Alum-Mag Hydrox-Simethicone Susp (30 mL) PO PRN (21:40)
[2018-01-19] MEDS ORDERED: Bismuth Subsalicylate 262 mg/15 ml Sus (240 ml) PO PRN (21:40)
--- NOTE | 2018-01-19 21:55 | PCM.BM ---
<Wes Valenzuela - Last Filed: 01/19/18 21:52> Treatment Plan Problems - Problems identified on initial assessmt Feelings of Worthlessness Date Initiated: 01/19/18 Time Initiated: 21:53 Assessment reference: NA Status: Active Hopelessness/Helplessness Date Initiated: 01/19/18 Time Initiated: 21:53 Assessment reference: NA Status: Active Less than Optimal Nutrition Date Initiated: 01/19/18 Time Initiated: 21:54 Assessment reference: NA Status: Active Treatment assets and liabiliti Patient Assests: cooperative, negotiates basic needs Patient Liabilities: live alone, imparied memory - Milieu Protocol Maintain good personal hygiene: daily Encourage regular showers, daily Remind patient to perform daily oral care, daily Assist patient to perform ADL's Conduct patient checks and document Observation sheet: Q15 minutes Maintain personal safety: every shift Educate patient to report safety concerns to staff, every shift Monitor environment for contraband/sharps Medication safety: Monitor for expected outcome, potential side effects: every shift, Assess barriers to learning: every shift, Assess readiness for medication education: every shift <Meseret Carroll - Last Filed: 01/20/18 09:31> - Diagnosis (1) Dementia Status: Acute Interventions: Medication management, Individual and group therapy, Psychoeducation 01/20/18 09:32 (2) Adjustment disorder Status: Acute Interventions: Medication management, Individual and group therapy, Psychoeducation 01/20/18 09:32 <Ana Strickland - Last Filed: 01/21/18 15:56> Family Contact Family involvement: Family/SO is involved Family contact: Patient agrees to contact, Family has been contacted by patient, Telephone contact initiated by staff Family contact name: Lexii - niece Family contacted how many times per week?: 2 Discharge/Continuing Care - Education Needs Education Needs: Family Medication, Family Diagnosis/Disease Process, Family Coping Skills, Family Placement options, Family Community resources, Family Uses of Medical Equipment, Family Health Practices/Safety, Family Personal Hygiene/Grooming, Family Aftercare Safety Plan, Patient Medication, Patient Diagnosis/Disease Process, Patient Coping Skills, Patient Placement options, Patient Community resources, Patient Uses of Medical Equipment, Patient Health Practices/Safety, Patient Personal Hygiene/Grooming, Patient Aftercare Safety Plan - Discharge Discharge Criteria: Tolerates medication w/o severe side effects, Ability to care for self, Reduction of target symptoms Discharge to:: Group Home - Additional Comments 01/21/18 15:53 Pt seen and discussed in team meeting. Reason for hospitalization reviewed and discussed. Pt reported she does not know why she is in the hospital. Pt unable to recall who brought her tot he hospital. Pt informed that she was referred due to chest pain, frequent falls and worsened depression. At time of meeting, pt denied feeling depressed and anxious. Pt stated 'I feel fine." Pt also answered "I don't know" to most if the questions. Pt's social and medical issues reviewed and discussed. Pt verbalized SW to contact her nieceLexii for additional information. Pt's medications reviewed and discussed. Tx plan reviewed and discussed. SW to continue to follow case. - Treatment Team Participation Discussed with Family/SO: Yes (Via telephone) Was Patient/Family/SO present at Treatment Team Meeting: Yes
[2018-01-19] MEDS ORDERED: Albuterol-Ipratrop 3 mg / 0.5 (3 ml) UD INH PRN (21:58)
[2018-01-19] MEDS: Docusate-Senna 50 mg-8.6 mg Tab PO SCH (22:56)
[2018-01-20 07:03] LABS: HEMOGLOBIN 10.6 g/dL (12.0-16.0); MEAN CELL VOLUME 90.4 fl (81.0-99.0); MEAN CORPUSCULAR HEMOGLOBIN 29.7 pg (27.0-31.0); MEAN CORPUSCULAR HGB CONC 32.9 g/dL (33.0-37.0); RBC 3.55 Mil/uL (3.80-5.20); RED CELL DISTRIBUTION WIDTH 15.3 % (11.5-14.5); WHITE BLOOD COUNT 7.1 K/uL (4.8-10.8)
[2018-01-20 07:32] LABS: ALBUMIN 4.2 g/dL (3.5-5.0)
[2018-01-20 07:35] LABS: IRON 31 ug/dL (37-170)
[2018-01-20 07:48] LABS: % IRON SATURATION 13 % (20-55); TOTAL IRON BINDING CAPACITY 232 ug/dL (250-450)
[2018-01-20 08:05] LABS: T4 11.5 ug/dl (5.5-11.0)
--- NOTE | 2018-01-20 09:34 | PCM.PSYCH ---
Initial Psychiatric Evaluation - Initial Psychiatric Evaluation Type of Admission: Voluntary Chief Complaint (in patient's own words): Depression Patient's Reaction to Hospitalization: HPI: 87 yo female w/ h/o dementia, asthma, hypertension, CKD, initially admitted to the medical unit, now transferred to the psychiatric unit for continued treatment of depressed and constricted affect, poverty of speech, low energy/motivation and decreased ability to care for self. Patient is a limited historian due to neurocognitive impairment. No AH/VH/SI/HI/paranoia/delusions. PMHx: Dementia, asthma, hypertension, CKD PPHx: Dementia SHx: Lives alone, from NH, no current drug/etoh/cig use ALL: NKDA Current Medications: Active Medications Generic Name Dose Route Start Last Admin Trade Name Freq PRN Reason Stop Dose Admin Acetaminophen 650 mg 01/19/18 21:40 Tylenol 325mg Tab PO Q4 PRN Pain, moderate (4-7) Al Hydrox/Mg Hydrox/Simethicone 30 ml 01/19/18 21:40 Maalox Plus 30 Ml PO Q4 PRN Dyspepsia Albuterol/Ipratropium 3 ml 01/19/18 21:58 Duoneb 3 Mg/0.5 Mg (3 Ml) Ud INH RQ6 PRN Shortness of Breath Amlodipine Besylate 10 mg 01/20/18 09:00 Norvasc PO DAILY MAURICE Bismuth Subsalicylate 524 mg 01/19/18 21:40 Pepto-Bismol PO Q4 PRN Diarrhea Docusate Sodium 100 mg 01/20/18 09:00 Colace PO BID MAURICE Donepezil HCl 10 mg 01/20/18 09:00 Aricept PO DAILY MAURICE Enoxaparin Sodium 30 mg 01/20/18 09:00 Lovenox SC DAILY MAURICE Protocol Furosemide 20 mg 01/20/18 09:00 Lasix PO DAILY MAURICE Gabapentin 100 mg 01/20/18 09:00 Neurontin PO TID MAURICE Lidocaine 1 ea 01/20/18 09:00 Lidoderm TD DAILY MAURICE Lorazepam 0.5 mg 01/19/18 21:40 Ativan PO 02/02/18 21:41 HS PRN Insomnia Lorazepam 0.5 mg 01/19/18 21:40 Ativan PO 02/02/18 21:41 Q6 PRN Anixety/Agitation Magnesium Hydroxide 30 ml 01/19/18 21:40 Milk Of Magnesia PO HS PRN Constipation Memantine 10 mg 01/20/18 09:00 Namenda PO BID MAURICE Metoprolol Succinate 25 mg 01/20/18 09:00 Toprol Xl PO DAILY MAURICE Pantoprazole Sodium 40 mg 01/20/18 09:00 Protonix Ec Tab PO DAILY MAURICE Senna/Docusate Sodium 2 tab 01/19/18 22:00 01/19/18 22:56 Senokot S 50 Mg-8.6 Mg PO 2 tab HS MAURICE Administration Trazodone HCl 25 mg 01/19/18 22:15 01/19/18 22:56 Desyrel PO 25 mg HS MAURICE Administration Venlafaxine HCl 37.5 mg 01/20/18 09:00 Effexor PO DAILY MAURICE Past Psychiatric History - Past Psychiatric History Previous Treatment History: None Pertinent Medical Hx (Current Medical&Sleep Prob, Allergies): Allergies Allergy/AdvReac Type Severity Reaction Status Date / Time No Known Allergies Allergy Verified 01/15/18 13:33 Metoprolol Succinate XL [Toprol XL] 25 mg PO DAILY 03/25/17 Multivitamin [Multi-Vitamin Daily] 1 tab PO DAILY 03/25/17 amLODIPine [Norvasc] 10 mg PO DAILY 03/25/17 Docusate Sodium/Sennosides A [Senokot S 50 MG-8.6 MG] 2 tab PO HS tab 12/22/17 Docusate [Colace] 100 mg PO BID cap 12/22/17 Lidocaine 5% [Lidoderm] 1 ea TD DAILY patch 12/22/17 Pantoprazole [Protonix EC Tab] 40 mg PO DAILY ect 12/22/17 Donepezil [Aricept] 10 mg PO DAILY 01/15/18 Furosemide [Lasix] 20 mg PO DAILY 01/15/18 Memantine HCl [Namenda Xr] 7 mg PO DAILY 01/15/18 Albuterol/Ipratropium [Duoneb 3 mg/0.5 mg (3 ml) UD] 3 ml INH RQ6 PRN neb 01/19/18 Enoxaparin [Lovenox] 30 mg SC DAILY syr 01/19/18 Memantine [Namenda] 10 mg PO BID tab 01/19/18 Venlafaxine [Effexor] 37.5 mg PO DAILY tab 01/19/18 Review of Systems - Psychiatric Psychiatric: As Per HPI, Anhedonia, Behavioral Changes, Change in Appetite, Depression, Difficulty Concentrating, Memory Loss Mental Status Examination - Personal Presentation Personal Presentation: Looks stated age - Affect Affect: Constricted - Motor Activity Motor Activity: Calm - Reliability in Providing Information Reliability in Providing Information: Poor, due to cognitve impairment - Speech Speech: Coherent - Mood Mood: Depressed - Formal Thought Process Formal Thought Process: Loosening of associations - Hallucinations/Delusions Additional comments: No AH/VH/paranoia/delusions - Cognitive Functions Orientation: Person Sensorium: Alert Attention/Concentration: Easily distracted Judgement: Imparied, as evidence by: Lack of insight into illness Memory: Recent impaired, as evidence by: Inability to recall events of the day, Recent imparied as evidence by:Inability to complete 3/3 object recall - Risk Risk: Diminished functioning - Strength & Assets Inventory Strength & Assets Inventory: Cooperative - Limitations Limitations: Living alone DSM 5 DX - DSM 5 DSM 5 Diagnosis: Dementia; Adjustment Disorder - Recommended/Plan of Treatment Treatment Recommendations and Plan of Treatment: Dementia; Adjustment Disorder -Admit to psychiatry unit -Continue recently started Effexor and Trazodone -Continue Aricept -Individual and group therapy -Obtain collateral history -Medicine consult -Disposition planning Projected ELOS: 5-8 days Discharge Plan and Discharge Criteria: Discharge when patient is psychiatrically stable - Smoking Cessation Smoking Cessation Initiated: No Reason for not providing: Not indicated
[2018-01-20] MEDS: Lidocaine 5% Patch TD SCH (09:37)
[2018-01-20] MEDS: Pantoprazole 40 mg EC Tab PO SCH (09:38)
[2018-01-20] MEDS: Metoprolol Succinate 25 mg XL Tab PO SCH (09:41)
[2018-01-20 13:12] LABS: FOLATE 10.1 ng/mL
[2018-01-20] MEDS: Enoxaparin 30 mg Syringe SC SCH (18:08)
[2018-01-20] MEDS: Docusate-Senna 50 mg-8.6 mg Tab PO SCH (21:02)
--- NOTE | 2018-01-21 00:35 | CP.PCM.HP ---
History of Present Illness - History of Present Illness History of Present Illness: Reason for Consult: Medical Management History of Present Illness: An 87 yo female w/ h/o Recurrent Falls, and Right Humeral Fracture, Dementia, Asthma, Hypertension, & CKD initially admitted to the medical unit for Chest Pain, and was found to be depressed as patient unable to care for herself. Now transferred to the psychiatric unit for continued treatment of depression and adjustment disorder as she will not go back to her home. SW working on her [facility] placement as patient is unable to care for herself. Present on Admission - Present on Admission Any Indicators Present on Admission: No Review of Systems - Review of Systems All systems: reviewed and no additional remarkable complaints except Review of Systems: as per HPI Past Patient History - Past Medical History & Family History Past Medical History?: Yes Past Family History: Reviewed and not pertinent - Past Social History Smoking Status: Former Smoker Alcohol: None Drugs: Denies - CARDIAC Hx Hypertension: Yes - PULMONARY Hx Asthma: Yes - NEUROLOGICAL Hx Neurological Disorder: No - HEENT Hx HEENT Problems: No - RENAL Hx Chronic Kidney Disease: Yes - ENDOCRINE/METABOLIC Hx Endocrine Disorders: No - HEMATOLOGICAL/ONCOLOGICAL Hx Human Immunodeficiency Virus (HIV): No - INTEGUMENTARY Hx Dermatological Problems: No - MUSCULOSKELETAL/RHEUMATOLOGICAL Hx Falls: Yes Hx Fractures: Yes (Right humerus) - GASTROINTESTINAL Hx Gastrointestinal Disorders: Yes Hx Constipation: Yes - GENITOURINARY/GYNECOLOGICAL Hx Genitourinary Disorders: No - PSYCHIATRIC Hx Depression: Yes Hx Substance Use: No - SURGICAL HISTORY Hx Surgeries: No - ANESTHESIA Hx Anesthesia: Yes Hx Anesthesia Reactions: No Hx Malignant Hyperthermia: No Meds Allergies/Adverse Reactions: Allergies Allergy/AdvReac Type Severity Reaction Status Date / Time No Known Allergies Allergy Verified 01/15/18 13:33 Physical Exam - Constitutional Appears: No Acute Distress, Chronically Ill - Head Exam Head Exam: ATRAUMATIC, NORMAL INSPECTION, NORMOCEPHALIC - Eye Exam Eye Exam: EOMI, Normal appearance, PERRL Pupil Exam: NORMAL ACCOMODATION, PERRL - ENT Exam ENT Exam: Mucous Membranes Moist, Normal Exam - Neck Exam Neck exam: Positive for: Normal Inspection - Respiratory Exam Respiratory Exam: Clear to Auscultation Bilateral, NORMAL BREATHING PATTERN - Cardiovascular Exam Cardiovascular Exam: REGULAR RHYTHM, +S1, +S2 - GI/Abdominal Exam GI & Abdominal Exam: Normal Bowel Sounds, Soft. absent: Tenderness - Extremities Exam Extremities exam: Positive for: normal capillary refill Additional comments: Right Forearm deformity - Back Exam Back exam: NORMAL INSPECTION - Neurological Exam Neurological exam: Alert, CN II-XII Intact, Normal Gait, Oriented x3, Reflexes Normal - Psychiatric Exam Psychiatric exam: Normal Affect, Normal Mood - Skin Skin Exam: Dry, Intact, Normal Color, Warm Results - Vital Signs Recent Vital Signs: Last Vital Signs Temp 98.3 F 01/20/18 16:12 Pulse 67 01/20/18 16:12 Resp 18 01/20/18 16:12 BP 133/89 01/20/18 16:12 Pulse Ox - Labs Result Diagrams: 01/20/18 06:00 01/20/18 06:00 Labs: Laboratory Results - last 24 hr 01/20/18 01/20/18 01/20/18 06:00 06:00 06:00 WBC 7.1 RBC 3.55 L Hgb 10.6 L Hct 32.1 L MCV 90.4 MCH 29.7 MCHC 32.9 L RDW 15.3 H Plt Count 395 D Sodium 140 Potassium 3.7 Chloride 101 Carbon Dioxide 27 Anion Gap 16 BUN 37 H Creatinine 1.5 H Est GFR ( Amer) 40 Est GFR (Non-Af Amer) 33 Random Glucose 99 Hemoglobin A1c Calcium 9.0 Iron 31 L TIBC 232 L % Saturation 13 L Ferritin 108.0 Total Bilirubin 0.7 AST 43 H D ALT 31 Alkaline Phosphatase 106 Total Protein 8.3 H Albumin 4.2 Globulin 4.1 H Albumin/Globulin Ratio 1.0 Triglycerides 140 Cholesterol 240 H LDL Cholesterol Direct 164 H HDL Cholesterol 42 Vitamin B12 825 Folate 10.1 Free T4 Thyroxine (T4) 11.5 H TSH 3rd Generation 1.08 RPR 01/20/18 01/20/18 01/20/18 06:00 06:00 06:00 WBC RBC Hgb Hct MCV MCH MCHC RDW Plt Count Sodium Potassium Chloride Carbon Dioxide Anion Gap BUN Creatinine Est GFR ( Amer) Est GFR (Non-Af Amer) Random Glucose Hemoglobin A1c 5.8 Calcium Iron TIBC % Saturation Ferritin Total Bilirubin AST ALT Alkaline Phosphatase Total Protein Albumin Globulin Albumin/Globulin Ratio Triglycerides Cholesterol LDL Cholesterol Direct HDL Cholesterol Vitamin B12 Folate Free T4 1.72 Thyroxine (T4) TSH 3rd Generation RPR Nonreactive Assessment & Plan (1) Depression Status: Acute Priority: High (2) Adjustment disorder Status: Acute Priority: High (3) Dementia Status: Chronic Priority: Medium (4) Atypical chest pain Status: Resolved (5) Constipation Status: Chronic Priority: Low (6) Falls frequently Status: Acute Priority: High (7) Asthma Status: Chronic Priority: Low (8) Hypertension Status: Chronic Priority: Medium - Assessment and Plan (Free Text) Plan: Continue Psych Recommendations Duo-neb q6hrs PRN Amlodipine & Metoprolol XL Neurontin Tylenl PRN
[2018-01-21] MEDS: Pantoprazole 40 mg EC Tab PO SCH (08:23)
[2018-01-21] MEDS: Metoprolol Succinate 25 mg XL Tab PO SCH (08:26)
[2018-01-21] MEDS: Lidocaine 5% Patch TD SCH (08:27)
[2018-01-21] MEDS: Enoxaparin 30 mg Syringe SC SCH (08:28)
--- NOTE | 2018-01-21 11:19 | PCM.PYCHPN ---
Psychiatric Progress Note - Psychiatric Progress Note Patient seen today, length of contact: Pt evaluated, case discussed w/ team, chart reviewed Patient Chief Complaint: Inability to care for self Problems Identified/Issues Discussed: Pt continues to have constricted affect. She denies feeling acutely depressed or anxious, but seems apathetic and answers questions minimally. She states that she does not understand why she is in the hospital. She reports that she has difficulty caring for herself at home and can not explain how she prepares food or what she eats when she is alone. Medication Change: No Medical Record Reviewed: Yes Consults ordered or reviewed: Medicine consult, PT consult Mental Status Examination - Cognitive Function Orientation: Person Memory: Impaired Attention: Poor Concentration: Poor Association: Loose Fund of Knowledge: Poor Decription of patient's judgement and insights: Poor I/J - Mood Mood: Neutral - Affect Affect: Constricted - Formal Thought Process Formal Thought Process: Loosening of associations Psychotic Thoughts and Behaviors: Denies AH/VH/paranoia/delusions - Suicidal Ideation Suicidal Ideation: No - Homicidal Ideation Homicidal Ideation: No Goal/Treatment Plan - Goal/Treatment Plan Need for Continued Stay: Remain at risks for inpatient hospitalization, Severe functional impairment Progress Toward Problem(s) and Goals/Treatment Plan: Dementia; Adjustment Disorder -Continue Effexor and Trazodone -Continue Aricept -Individual and group therapy -Obtain collateral history -Physical therapy evaluation -Medicine consult -Disposition planning
[2018-01-21] MEDS: Docusate-Senna 50 mg-8.6 mg Tab PO SCH (21:03)
--- NOTE | 2018-01-21 22:52 | CP.PCM.PN ---
Subjective - Date & Time of Evaluation Date of Evaluation: 01/21/18 Time of Evaluation: 12:10 - Subjective Subjective: No New complaint. States feeling Better. Objective - Vital Signs/Intake and Output Vital Signs (last 24 hours): Temp Pulse Resp BP Pulse Ox 97.5 F L 66 18 127/62 01/21/18 15:20 01/21/18 15:20 01/21/18 15:20 01/21/18 15:20 - Medications Medications: Current Medications Acetaminophen (Tylenol 325mg Tab) 650 mg PO Q4 PRN PRN Reason: Pain, moderate (4-7) Al Hydrox/Mg Hydrox/Simethicone (Maalox Plus 30 Ml) 30 ml PO Q4 PRN PRN Reason: Dyspepsia Albuterol/Ipratropium (Duoneb 3 Mg/0.5 Mg (3 Ml) Ud) 3 ml INH RQ6 PRN PRN Reason: Shortness of Breath Last Admin: 01/21/18 11:46 Dose: 3 ml Amlodipine Besylate (Norvasc) 10 mg PO DAILY [facility] Last Admin: 01/21/18 08:25 Dose: 10 mg Bismuth Subsalicylate (Pepto-Bismol) 524 mg PO Q4 PRN PRN Reason: Diarrhea Docusate Sodium (Colace) 100 mg PO BID [facility] Last Admin: 01/21/18 16:44 Dose: 100 mg Donepezil HCl (Aricept) 10 mg PO DAILY [facility] Last Admin: 01/21/18 08:33 Dose: 10 mg Enoxaparin Sodium (Lovenox) 30 mg SC DAILY [facility]; Protocol Last Admin: 01/21/18 08:28 Dose: 30 mg Furosemide (Lasix) 20 mg PO DAILY [facility] Last Admin: 01/21/18 08:27 Dose: 20 mg Gabapentin (Neurontin) 100 mg PO TID [facility] Last Admin: 01/21/18 16:45 Dose: 100 mg Lidocaine (Lidoderm) 1 ea TD DAILY [facility] Last Admin: 01/21/18 08:27 Dose: 1 ea Lorazepam (Ativan) 0.5 mg PO HS PRN PRN Reason: Insomnia Stop: 02/02/18 21:41 Lorazepam (Ativan) 0.5 mg PO Q6 PRN PRN Reason: Anixety/Agitation Stop: 02/02/18 21:41 Magnesium Hydroxide (Milk Of Magnesia) 30 ml PO HS PRN PRN Reason: Constipation Memantine (Namenda) 10 mg PO BID [facility] Last Admin: 01/21/18 16:45 Dose: 10 mg Metoprolol Succinate (Toprol Xl) 25 mg PO DAILY [facility] Last Admin: 01/21/18 08:26 Dose: 25 mg Pantoprazole Sodium (Protonix Ec Tab) 40 mg PO DAILY [facility] Last Admin: 01/21/18 08:23 Dose: 40 mg Senna/Docusate Sodium (Senokot S 50 Mg-8.6 Mg) 2 tab PO HS [facility] Last Admin: 01/21/18 21:03 Dose: 2 tab Trazodone HCl (Desyrel) 25 mg PO [facility] Last Admin: 01/21/18 21:03 Dose: 25 mg Venlafaxine HCl (Effexor) 37.5 mg PO DAILY [facility] Last Admin: 01/21/18 08:26 Dose: 37.5 mg - Labs Labs: 01/20/18 06:00 01/20/18 06:00 Assessment and Plan (1) Depression Status: Acute (2) Falls frequently Status: Acute (3) Asthma Status: Chronic (4) Back pain Status: Chronic (5) Constipation Status: Chronic (6) Dementia Status: Chronic (7) Humeral surgical neck fracture Status: Chronic (8) Hypertension Status: Chronic (9) Adjustment disorder Status: Resolved - Assessment and Plan (Free Text) Plan: Continue Current Care
--- NOTE | 2018-01-22 08:25 | PCM.PYCHPN ---
Psychiatric Progress Note - Psychiatric Progress Note Patient seen today, length of contact: Pt evaluated, case discussed w/ team, chart reviewed Patient Chief Complaint: Inability to care for self Problems Identified/Issues Discussed: Pt continues to have constricted affect w/ low energy. She denies feeling acutely depressed or anxious, but seems apathetic and answers questions minimally. She continues to have chronic memory deficits and can not explain why she is in the hospital. She acknowledges that she is not able to care for herself alone at home. Medication Change: No Medical Record Reviewed: Yes Consults ordered or reviewed: Medicine consult, PT consult Mental Status Examination - Cognitive Function Orientation: Person Memory: Impaired Attention: Poor Concentration: Poor Association: Loose Fund of Knowledge: Poor Decription of patient's judgement and insights: Poor I/J - Mood Mood: Neutral - Affect Affect: Constricted - Formal Thought Process Formal Thought Process: Loosening of associations Psychotic Thoughts and Behaviors: Denies AH/VH/paranoia/delusions - Suicidal Ideation Suicidal Ideation: No - Homicidal Ideation Homicidal Ideation: No Goal/Treatment Plan - Goal/Treatment Plan Need for Continued Stay: Remain at risks for inpatient hospitalization, Severe functional impairment Progress Toward Problem(s) and Goals/Treatment Plan: Dementia; Adjustment Disorder -Continue Effexor and Trazodone -Continue Aricept -Individual and group therapy -SW discussed case w/ patient's niece (see SW notes) -Physical therapy evaluation -Medicine consult -Disposition planning
[2018-01-22] MEDS: Pantoprazole 40 mg EC Tab PO SCH (09:12)
[2018-01-22] MEDS: Enoxaparin 30 mg Syringe SC SCH (09:14)
[2018-01-22] MEDS: Metoprolol Succinate 25 mg XL Tab PO SCH (09:15)
[2018-01-22] MEDS: Lidocaine 5% Patch TD SCH (09:21)
[2018-01-22] MEDS: Docusate-Senna 50 mg-8.6 mg Tab PO SCH (21:14)
--- NOTE | 2018-01-23 00:56 | CP.PCM.PN ---
Subjective - Date & Time of Evaluation Date of Evaluation: 01/22/18 Time of Evaluation: 07:05 - Subjective Subjective: No New complaint. States feeling Better. Objective - Vital Signs/Intake and Output Vital Signs (last 24 hours): Temp Pulse Resp BP Pulse Ox 98.2 F 18 L 18 136/87 01/22/18 16:25 01/22/18 16:25 01/22/18 05:51 01/22/18 16:25 - Medications Medications: Current Medications Acetaminophen (Tylenol 325mg Tab) 650 mg PO Q4 PRN PRN Reason: Pain, moderate (4-7) Al Hydrox/Mg Hydrox/Simethicone (Maalox Plus 30 Ml) 30 ml PO Q4 PRN PRN Reason: Dyspepsia Albuterol/Ipratropium (Duoneb 3 Mg/0.5 Mg (3 Ml) Ud) 3 ml INH RQ6 PRN PRN Reason: Shortness of Breath Last Admin: 01/21/18 11:46 Dose: 3 ml Amlodipine Besylate (Norvasc) 10 mg PO DAILY [facility] Last Admin: 01/22/18 09:14 Dose: 10 mg Bismuth Subsalicylate (Pepto-Bismol) 524 mg PO Q4 PRN PRN Reason: Diarrhea Docusate Sodium (Colace) 100 mg PO BID [facility] Last Admin: 01/22/18 16:27 Dose: 100 mg Donepezil HCl (Aricept) 10 mg PO DAILY [facility] Last Admin: 01/22/18 09:13 Dose: 10 mg Enoxaparin Sodium (Lovenox) 30 mg SC DAILY [facility]; Protocol Last Admin: 01/22/18 09:14 Dose: 30 mg Furosemide (Lasix) 20 mg PO DAILY [facility] Last Admin: 01/22/18 09:13 Dose: 20 mg Gabapentin (Neurontin) 100 mg PO TID [facility] Last Admin: 01/22/18 16:27 Dose: 100 mg Lidocaine (Lidoderm) 1 ea TD DAILY [facility] Last Admin: 01/22/18 09:21 Dose: Not Given Lorazepam (Ativan) 0.5 mg PO HS PRN PRN Reason: Insomnia Stop: 02/02/18 21:41 Lorazepam (Ativan) 0.5 mg PO Q6 PRN PRN Reason: Anixety/Agitation Stop: 02/02/18 21:41 Magnesium Hydroxide (Milk Of Magnesia) 30 ml PO HS PRN PRN Reason: Constipation Memantine (Namenda) 10 mg PO BID [facility] Last Admin: 01/22/18 16:27 Dose: 10 mg Metoprolol Succinate (Toprol Xl) 25 mg PO DAILY [facility] Last Admin: 01/22/18 09:15 Dose: 25 mg Pantoprazole Sodium (Protonix Ec Tab) 40 mg PO DAILY [facility] Last Admin: 01/22/18 09:12 Dose: 40 mg Senna/Docusate Sodium (Senokot S 50 Mg-8.6 Mg) 2 tab PO HS [facility] Last Admin: 01/22/18 21:14 Dose: 2 tab Trazodone HCl (Desyrel) 25 mg PO [facility] Last Admin: 01/22/18 21:14 Dose: 25 mg Venlafaxine HCl (Effexor) 37.5 mg PO DAILY [facility] Last Admin: 01/22/18 09:13 Dose: 37.5 mg - Labs Labs: 01/20/18 06:00 01/20/18 06:00 Assessment and Plan (1) Depression Status: Acute (2) Adjustment disorder Status: Acute (3) Dementia Status: Chronic (4) Atypical chest pain Status: Resolved (5) Constipation Status: Chronic (6) Falls frequently Status: Acute (7) Asthma Status: Chronic (8) Hypertension Status: Chronic - Assessment and Plan (Free Text) Plan: Continue Current Care
--- NOTE | 2018-01-23 08:26 | PCM.PYCHPN ---
Psychiatric Progress Note - Psychiatric Progress Note Patient seen today, length of contact: Pt evaluated, case discussed w/ team, chart reviewed Patient Chief Complaint: Inability to care for self Problems Identified/Issues Discussed: No new events overnight. Patient denies feeling acutely depressed/anxious. She continues to have constricted affect, memory deficits and is unable to care for herself at this time due to physical and cognitive deficits. Medication Change: No Medical Record Reviewed: Yes Consults ordered or reviewed: Medicine consult, PT consult Mental Status Examination - Cognitive Function Orientation: Person Memory: Impaired Attention: Poor Concentration: Poor Association: Loose Fund of Knowledge: Poor Decription of patient's judgement and insights: Poor I/J - Mood Mood: Neutral - Affect Affect: Constricted - Formal Thought Process Formal Thought Process: Loosening of associations Psychotic Thoughts and Behaviors: Denies AH/VH/paranoia/delusions - Suicidal Ideation Suicidal Ideation: No - Homicidal Ideation Homicidal Ideation: No Goal/Treatment Plan - Goal/Treatment Plan Need for Continued Stay: Severe functional impairment Progress Toward Problem(s) and Goals/Treatment Plan: Dementia; Adjustment Disorder -Continue Effexor and Trazodone -Continue Aricept -Individual and group therapy -SW discussed case w/ patient's niece (see SW notes) -Physical therapy evaluation -Medicine consult -Disposition planning
[2018-01-23] MEDS: Metoprolol Succinate 25 mg XL Tab PO SCH (09:24)
[2018-01-23] MEDS: Pantoprazole 40 mg EC Tab PO SCH (09:27)
[2018-01-23] MEDS: Enoxaparin 30 mg Syringe SC SCH (09:27)
[2018-01-23] MEDS: Lidocaine 5% Patch TD SCH (09:30)
[2018-01-23] MEDS: Docusate-Senna 50 mg-8.6 mg Tab PO SCH (21:07)
--- NOTE | 2018-01-24 02:38 | CP.PCM.PN ---
Subjective - Date & Time of Evaluation Date of Evaluation: 01/23/18 Time of Evaluation: 08:05 - Subjective Subjective: Reviewed her charts. Objective - Vital Signs/Intake and Output Vital Signs (last 24 hours): Temp Pulse Resp BP Pulse Ox 99 F 66 18 114/53 L 01/23/18 15:57 01/23/18 15:57 01/23/18 15:57 01/23/18 15:57 - Medications Medications: Current Medications Acetaminophen (Tylenol 325mg Tab) 650 mg PO Q4 PRN PRN Reason: Pain, moderate (4-7) Al Hydrox/Mg Hydrox/Simethicone (Maalox Plus 30 Ml) 30 ml PO Q4 PRN PRN Reason: Dyspepsia Albuterol/Ipratropium (Duoneb 3 Mg/0.5 Mg (3 Ml) Ud) 3 ml INH RQ6 PRN PRN Reason: Shortness of Breath Last Admin: 01/21/18 11:46 Dose: 3 ml Amlodipine Besylate (Norvasc) 10 mg PO DAILY [facility] Last Admin: 01/23/18 09:25 Dose: 10 mg Bismuth Subsalicylate (Pepto-Bismol) 524 mg PO Q4 PRN PRN Reason: Diarrhea Docusate Sodium (Colace) 100 mg PO BID [facility] Last Admin: 01/23/18 17:09 Dose: Not Given Donepezil HCl (Aricept) 10 mg PO DAILY [facility] Last Admin: 01/23/18 09:24 Dose: 10 mg Enoxaparin Sodium (Lovenox) 30 mg SC DAILY [facility]; Protocol Last Admin: 01/23/18 09:27 Dose: 30 mg Furosemide (Lasix) 20 mg PO DAILY [facility] Last Admin: 01/23/18 09:24 Dose: 20 mg Gabapentin (Neurontin) 100 mg PO TID [facility] Last Admin: 01/23/18 17:09 Dose: 100 mg Lidocaine (Lidoderm) 1 ea TD DAILY [facility] Last Admin: 01/23/18 09:30 Dose: 1 ea Lorazepam (Ativan) 0.5 mg PO HS PRN PRN Reason: Insomnia Stop: 02/02/18 21:41 Lorazepam (Ativan) 0.5 mg PO Q6 PRN PRN Reason: Anixety/Agitation Stop: 02/02/18 21:41 Magnesium Hydroxide (Milk Of Magnesia) 30 ml PO HS PRN PRN Reason: Constipation Memantine (Namenda) 10 mg PO BID [facility] Last Admin: 01/23/18 17:09 Dose: 10 mg Metoprolol Succinate (Toprol Xl) 25 mg PO DAILY [facility] Last Admin: 01/23/18 09:24 Dose: 25 mg Pantoprazole Sodium (Protonix Ec Tab) 40 mg PO DAILY [facility] Last Admin: 01/23/18 09:27 Dose: 40 mg Senna/Docusate Sodium (Senokot S 50 Mg-8.6 Mg) 2 tab PO [facility] Last Admin: 01/23/18 21:07 Dose: 2 tab Trazodone HCl (Desyrel) 25 mg PO HS [facility] Last Admin: 01/23/18 21:06 Dose: 25 mg Venlafaxine HCl (Effexor) 37.5 mg PO DAILY [facility] Last Admin: 01/23/18 09:26 Dose: 37.5 mg - Labs Labs: 01/20/18 06:00 01/20/18 06:00 Assessment and Plan (1) Depression Status: Acute (2) Adjustment disorder Status: Acute (3) Dementia Status: Chronic (4) Atypical chest pain Status: Resolved (5) Constipation Status: Chronic (6) Falls frequently Status: Acute (7) Asthma Status: Chronic (8) Hypertension Status: Chronic - Assessment and Plan (Free Text) Plan: Continue Current Care
[2018-01-24 08:20] LABS: URINE BILIRUBIN NEGATIVE (NEGATIVE); URINE BLOOD NEGATIVE (NEGATIVE); URINE CLARITY CLEAR (Clear); URINE COLOR YELLOW (YELLOW); URINE GLUCOSE (UA) NEG (Normal); URINE LEUKOCYTE ESTERASE NEG Leu/uL (Negative); URINE PROTEIN NEGATIVE (NEGATIVE)
[2018-01-24] MEDS: Enoxaparin 30 mg Syringe SC SCH (08:21)
[2018-01-24] MEDS: Pantoprazole 40 mg EC Tab PO SCH (08:22)
[2018-01-24] MEDS: Metoprolol Succinate 25 mg XL Tab PO SCH (08:23)
[2018-01-24] MEDS: Lidocaine 5% Patch TD SCH (08:25)
[2018-01-24 08:28] LABS: SQUAMOUS EPITHIAL 3 /hpf (0-5)
--- NOTE | 2018-01-24 08:36 | PCM.PYCHPN ---
Psychiatric Progress Note - Psychiatric Progress Note Patient seen today, length of contact: Pt evaluated, case discussed w/ team, chart reviewed Patient Chief Complaint: Inability to care for self Problems Identified/Issues Discussed: Patient is at her baseline of functioning. No acute depression/anxiety/AH/VH/SI/HI/behavioral issues. She continues to have significant memory deficits and is unable to care for herself at this time due to physical and cognitive deficits. Medication Change: No Medical Record Reviewed: Yes Consults ordered or reviewed: Medicine consult, PT consult Mental Status Examination - Cognitive Function Orientation: Person Memory: Impaired Attention: Poor Concentration: Poor Association: Loose Fund of Knowledge: Poor Decription of patient's judgement and insights: Poor I/J - Mood Mood: Neutral - Affect Affect: Broad - Speech Speech: Soft - Formal Thought Process Formal Thought Process: Loosening of associations Psychotic Thoughts and Behaviors: Denies AH/VH/paranoia/delusions - Suicidal Ideation Suicidal Ideation: No - Homicidal Ideation Homicidal Ideation: No Goal/Treatment Plan - Goal/Treatment Plan Need for Continued Stay: Severe functional impairment Progress Toward Problem(s) and Goals/Treatment Plan: Dementia; Adjustment Disorder; Patient is psychiatrically stable for referral to subacute rehab. -Continue Effexor, Trazodone and Aricept -Individual and group therapy -SW discussed case w/ patient's niece (see SW notes) -Physical therapy evaluation -Medicine consult -Disposition planning- refer to subacute rehab
[2018-01-24] MEDS: Docusate-Senna 50 mg-8.6 mg Tab PO SCH (21:19)
[2018-01-25] MEDS: Lidocaine 5% Patch TD SCH (09:17)
[2018-01-25] MEDS: Enoxaparin 30 mg Syringe SC SCH (09:18)
[2018-01-25] MEDS: Pantoprazole 40 mg EC Tab PO SCH (09:20)
[2018-01-25] MEDS: Metoprolol Succinate 25 mg XL Tab PO SCH (09:28)
[2018-01-25 16:18] VITALS: RESP 18
[2018-01-25] MEDS: Docusate-Senna 50 mg-8.6 mg Tab PO SCH (21:18)
--- NOTE | 2018-01-25 23:34 | CP.PCM.PN ---
Subjective - Date & Time of Evaluation Date of Evaluation: 01/24/18 Time of Evaluation: 08:15 - Subjective Subjective: No New complaint. States feeling Better. Objective - Vital Signs/Intake and Output Vital Signs (last 24 hours): Temp Pulse Resp BP Pulse Ox 97.9 F 62 18 137/65 01/25/18 16:18 01/25/18 16:18 01/25/18 16:18 01/25/18 16:18 - Medications Medications: Current Medications Acetaminophen (Tylenol 325mg Tab) 650 mg PO Q4 PRN PRN Reason: Pain, moderate (4-7) Al Hydrox/Mg Hydrox/Simethicone (Maalox Plus 30 Ml) 30 ml PO Q4 PRN PRN Reason: Dyspepsia Albuterol/Ipratropium (Duoneb 3 Mg/0.5 Mg (3 Ml) Ud) 3 ml INH RQ6 PRN PRN Reason: Shortness of Breath Last Admin: 01/21/18 11:46 Dose: 3 ml Amlodipine Besylate (Norvasc) 10 mg PO DAILY [facility] Last Admin: 01/25/18 09:33 Dose: 10 mg Bismuth Subsalicylate (Pepto-Bismol) 524 mg PO Q4 PRN PRN Reason: Diarrhea Docusate Sodium (Colace) 100 mg PO BID [facility] Last Admin: 01/25/18 09:20 Dose: 100 mg Donepezil HCl (Aricept) 10 mg PO DAILY [facility] Last Admin: 01/25/18 09:20 Dose: 10 mg Enoxaparin Sodium (Lovenox) 30 mg SC DAILY [facility]; Protocol Last Admin: 01/25/18 09:18 Dose: 30 mg Furosemide (Lasix) 20 mg PO DAILY [facility] Last Admin: 01/25/18 09:33 Dose: 20 mg Gabapentin (Neurontin) 100 mg PO TID [facility] Last Admin: 01/25/18 12:33 Dose: 100 mg Lidocaine (Lidoderm) 1 ea TD DAILY [facility] Last Admin: 01/25/18 09:17 Dose: 1 ea Lorazepam (Ativan) 0.5 mg PO HS PRN PRN Reason: Insomnia Stop: 02/02/18 21:41 Lorazepam (Ativan) 0.5 mg PO Q6 PRN PRN Reason: Anixety/Agitation Stop: 02/02/18 21:41 Magnesium Hydroxide (Milk Of Magnesia) 30 ml PO HS PRN PRN Reason: Constipation Memantine (Namenda) 10 mg PO BID [facility] Last Admin: 01/25/18 09:19 Dose: 10 mg Metoprolol Succinate (Toprol Xl) 25 mg PO DAILY [facility] Last Admin: 01/25/18 09:28 Dose: 25 mg Pantoprazole Sodium (Protonix Ec Tab) 40 mg PO DAILY [facility] Last Admin: 01/25/18 09:20 Dose: 40 mg Senna/Docusate Sodium (Senokot S 50 Mg-8.6 Mg) 2 tab PO HS [facility] Last Admin: 01/25/18 21:18 Dose: 2 tab Trazodone HCl (Desyrel) 25 mg PO [facility] Last Admin: 01/25/18 21:20 Dose: 25 mg Venlafaxine HCl (Effexor) 37.5 mg PO DAILY [facility] Last Admin: 01/25/18 09:28 Dose: 37.5 mg - Labs Labs: 01/20/18 06:00 01/20/18 06:00 Assessment and Plan (1) Depression Status: Acute (2) Adjustment disorder Status: Resolved (3) Dementia Status: Chronic (4) Atypical chest pain Status: Resolved (5) Constipation Status: Chronic (6) Falls frequently Status: Acute (7) Asthma Status: Chronic (8) Hypertension Status: Chronic - Assessment and Plan (Free Text) Plan: Continue Current Care
--- NOTE | 2018-01-25 23:34 | CP.PCM.PN ---
Subjective - Date & Time of Evaluation Date of Evaluation: 01/25/18 Time of Evaluation: 11:10 - Subjective Subjective: Seen and examined at the bed side. No New complaint. Form Completed for Insurance application. Objective - Vital Signs/Intake and Output Vital Signs (last 24 hours): Temp Pulse Resp BP Pulse Ox 97.9 F 62 18 137/65 01/25/18 16:18 01/25/18 16:18 01/25/18 16:18 01/25/18 16:18 - Medications Medications: Current Medications Acetaminophen (Tylenol 325mg Tab) 650 mg PO Q4 PRN PRN Reason: Pain, moderate (4-7) Al Hydrox/Mg Hydrox/Simethicone (Maalox Plus 30 Ml) 30 ml PO Q4 PRN PRN Reason: Dyspepsia Albuterol/Ipratropium (Duoneb 3 Mg/0.5 Mg (3 Ml) Ud) 3 ml INH RQ6 PRN PRN Reason: Shortness of Breath Last Admin: 01/21/18 11:46 Dose: 3 ml Amlodipine Besylate (Norvasc) 10 mg PO DAILY [facility] Last Admin: 01/25/18 09:33 Dose: 10 mg Bismuth Subsalicylate (Pepto-Bismol) 524 mg PO Q4 PRN PRN Reason: Diarrhea Docusate Sodium (Colace) 100 mg PO BID [facility] Last Admin: 01/25/18 09:20 Dose: 100 mg Donepezil HCl (Aricept) 10 mg PO DAILY [facility] Last Admin: 01/25/18 09:20 Dose: 10 mg Enoxaparin Sodium (Lovenox) 30 mg SC DAILY [facility]; Protocol Last Admin: 01/25/18 09:18 Dose: 30 mg Furosemide (Lasix) 20 mg PO DAILY [facility] Last Admin: 01/25/18 09:33 Dose: 20 mg Gabapentin (Neurontin) 100 mg PO TID [facility] Last Admin: 01/25/18 12:33 Dose: 100 mg Lidocaine (Lidoderm) 1 ea TD DAILY [facility] Last Admin: 01/25/18 09:17 Dose: 1 ea Lorazepam (Ativan) 0.5 mg PO HS PRN PRN Reason: Insomnia Stop: 02/02/18 21:41 Lorazepam (Ativan) 0.5 mg PO Q6 PRN PRN Reason: Anixety/Agitation Stop: 02/02/18 21:41 Magnesium Hydroxide (Milk Of Magnesia) 30 ml PO HS PRN PRN Reason: Constipation Memantine (Namenda) 10 mg PO BID [facility] Last Admin: 01/25/18 09:19 Dose: 10 mg Metoprolol Succinate (Toprol Xl) 25 mg PO DAILY [facility] Last Admin: 01/25/18 09:28 Dose: 25 mg Pantoprazole Sodium (Protonix Ec Tab) 40 mg PO DAILY [facility] Last Admin: 01/25/18 09:20 Dose: 40 mg Senna/Docusate Sodium (Senokot S 50 Mg-8.6 Mg) 2 tab PO [facility] Last Admin: 01/25/18 21:18 Dose: 2 tab Trazodone HCl (Desyrel) 25 mg PO [facility] Last Admin: 01/25/18 21:20 Dose: 25 mg Venlafaxine HCl (Effexor) 37.5 mg PO DAILY [facility] Last Admin: 01/25/18 09:28 Dose: 37.5 mg - Labs Labs: 01/20/18 06:00 01/20/18 06:00 Assessment and Plan (1) Depression Status: Acute (2) Adjustment disorder Status: Resolved (3) Dementia Status: Chronic (4) Atypical chest pain Status: Resolved (5) Constipation Status: Chronic (6) Falls frequently Status: Acute (7) Asthma Status: Chronic (8) Hypertension Status: Chronic - Assessment and Plan (Free Text) Plan: Patient and family agreed for [facility] to [facility] placement.
--- NOTE | 2018-01-26 08:09 | PCM.PYCHPN ---
Psychiatric Progress Note - Psychiatric Progress Note Patient seen today, length of contact: Pt evaluated, case discussed w/ team, chart reviewed Patient Chief Complaint: Inability to care for self Problems Identified/Issues Discussed: No new events. Patient is at her baseline of functioning. No acute depression/anxiety/AH/VH/SI/HI/behavioral issues. She continues to have significant memory deficits and is unable to care for herself at this time due to physical and cognitive deficits. Medication Change: No Medical Record Reviewed: Yes Consults ordered or reviewed: Medicine consult, PT consult Mental Status Examination - Cognitive Function Orientation: Person Memory: Impaired Attention: Poor Concentration: Poor Association: Loose Fund of Knowledge: Poor Decription of patient's judgement and insights: Poor I/J - Mood Mood: Neutral - Affect Affect: Broad - Speech Speech: Soft - Formal Thought Process Formal Thought Process: Loosening of associations Psychotic Thoughts and Behaviors: Denies AH/VH/paranoia/delusions - Suicidal Ideation Suicidal Ideation: No - Homicidal Ideation Homicidal Ideation: No Goal/Treatment Plan - Goal/Treatment Plan Need for Continued Stay: Severe functional impairment Progress Toward Problem(s) and Goals/Treatment Plan: Dementia; Adjustment Disorder; Patient is psychiatrically stable for referral to subacute rehab. -Continue Effexor, Trazodone and Aricept -Individual and group therapy -SW discussed case w/ patient's niece (see SW notes) -Physical therapy -Medicine consult -Disposition planning- refer to subacute rehab Estimated Date of D/C: 01/28/18
[2018-01-26] MEDS: Metoprolol Succinate 25 mg XL Tab PO SCH (09:16)
[2018-01-26] MEDS: Pantoprazole 40 mg EC Tab PO SCH (09:16)
[2018-01-26] MEDS: Lidocaine 5% Patch TD SCH (09:26)
[2018-01-26] MEDS: Docusate-Senna 50 mg-8.6 mg Tab PO SCH (21:18)
[2018-01-27 06:06] VITALS: BP 136/70; TEMP 98
[2018-01-27] MEDS: Metoprolol Succinate 25 mg XL Tab PO SCH (08:24)
[2018-01-27] MEDS: Pantoprazole 40 mg EC Tab PO SCH (08:24)
[2018-01-27] MEDS: Lidocaine 5% Patch TD SCH (08:27)
[2018-01-27 08:28] VITALS: PULSE 92
--- NOTE | 2018-01-27 10:04 | PCM.PYCHDC ---
Mental Status Examination - Mental Status Examination Orientation: Person, Place Memory: Impaired Mood: Neutral Affect: Broad Speech: Appropriate Attention: Poor Concentration: Poor Association: WNL Fund of Knowledge: Poor Formal Thought Process: No Impairment Description of patient's judgement and insight: Chronic limitations in insight/judgment due to dementia Psychotic Thoughts and Behaviors: Denies AH/VH/paranoia/delusions Suicidal Ideation: No Current Homicidal Ideation?: No Discharge Summary - Discharge Note Reason for Hospitalization: HPI: 87 yo female w/ h/o dementia, asthma, hypertension, CKD, initially admitted to the medical unit, now transferred to the psychiatric unit for continued treatment of depressed and constricted affect, poverty of speech, low energy/motivation and decreased ability to care for self. Patient is a limited historian due to neurocognitive impairment. No AH/VH/SI/HI/paranoia/delusions. PMHx: Dementia, asthma, hypertension, CKD PPHx: Dementia SHx: Lives alone, from [place], no current drug/etoh/cig use ALL: NKDA Consultations:: List each consultation separately and include: 1. Reason for request. 2. Findings. 3. Follow-up Consultations: Medicine consult, PT consult Summary of Hospital Course include:: 1. Description of specific treatment plan utilized for patients during their course of treatmen. 2. Summarize the time- course for resolution of acute symptoms and/or regressed behaviors. 3. Describe issues identified and worked on during hospitalization. 4. Describe medication utilized. 5. Describe medical problems identified and treated. 6. Reassessment of suicide risk Summary of Hospital Course: Patient was admitted to the psychiatry unit. Individual and group therapy were provided. Patient was stabilized on Effexor 37.5 mg PO Daily, Trazodone 25 mg PO HS, Namenda 10 mg PO BID and Aricept 10 mg PO HS. She denies acute AH/VH/SI/HI/depression/anxiety/paranoia. She is psychiatrically stable for discharge at this time. - Diagnosis (1) Dementia Current Visit: Yes Status: Chronic Priority: Medium (2) Adjustment disorder Current Visit: Yes Status: Resolved Priority: High - Final Diagnosis (DSM 5) Condition upon Discharge: STABLE DSM 5: Dementia; Adjustment Disorder Disposition: TRANSF TO SNF Follow-up Treatment Plan: Dementia; Adjustment Disorder; Patient is psychiatrically stable for discharge to subacute rehab. -Continue Effexor, Trazodone, Aricept, Namenda -Individual and group therapy -SW discussed case w/ patient's niece (see SW notes) -Physical therapy -Medicine consult -Discharge to subacute rehab - Smoking Cessation Smoking Cessation Medication prescribed: No Reason for not providing: Not indicated - Antipsychotic Medications Pt discharged on 2 or more routine antipsychotic medications: No
[2018-01-27] MEDS ORDERED: Amoxicillin-Clav 500-125 mg Tab PO SCH (10:15)
--- NOTE | 2018-01-27 18:24 | CP.PCM.PN ---
Subjective - Date & Time of Evaluation Date of Evaluation: 01/26/18 Time of Evaluation: 07:10 - Subjective Subjective: No New complaint. Objective - Vital Signs/Intake and Output Vital Signs (last 24 hours): Temp Pulse Resp BP Pulse Ox 98.0 F 92 H 18 136/70 01/27/18 06:00 01/27/18 08:24 01/27/18 06:00 01/27/18 08:25 - Labs Labs: 01/20/18 06:00 01/20/18 06:00 Assessment and Plan (1) Depression Status: Acute (2) Adjustment disorder Status: Resolved (3) Dementia Status: Chronic (4) Atypical chest pain Status: Resolved (5) Constipation Status: Chronic (6) Falls frequently Status: Acute (7) Asthma Status: Chronic (8) Hypertension Status: Chronic - Assessment and Plan (Free Text) Plan: Continue current care Waiting placement.
--- NOTE | 2018-01-27 18:27 | CP.PCM.PN ---
Subjective - Date & Time of Evaluation Date of Evaluation: 01/27/18 Time of Evaluation: 12:15 - Subjective Subjective: C/O Odynophagia. No fever or chills. Patient [facility], and for D/c to [facility] to [facility] Home today. Objective - Vital Signs/Intake and Output Vital Signs (last 24 hours): Temp Pulse Resp BP Pulse Ox 98.0 F 92 H 18 136/70 01/27/18 06:00 01/27/18 08:24 01/27/18 06:00 01/27/18 08:25 - Labs Labs: 01/20/18 06:00 01/20/18 06:00 - ENT Exam ENT Exam: Mucous Membranes Moist - Neck Exam Neck Exam: Full ROM, Normal Inspection - Respiratory Exam Respiratory Exam: Clear to Ausculation Bilateral, NORMAL BREATHING PATTERN - Cardiovascular Exam Cardiovascular Exam: +S1, +S2 - GI/Abdominal Exam GI & Abdominal Exam: Soft Assessment and Plan (1) Depression Status: Acute (2) Adjustment disorder Status: Resolved (3) Dementia Status: Chronic (4) Atypical chest pain Status: Resolved (5) Constipation Status: Chronic (6) Falls frequently Status: Acute (7) Asthma Status: Chronic (8) Hypertension Assessment & Plan: Improved. Status: Chronic (9) Acute pharyngitis Assessment & Plan: Augmentin 500mg BID for 7 days Status: Acute
== END 2018-01-27 13:00 | DRG 884 ==
LOC: H.ERHOLD 21:13 → H.STEP 21:35
PROVIDERS: ADMIT Psychiatry & Neurology Psychiatry; ATTEND Psychiatry & Neurology Psychiatry
PROC: GZHZZZZ Group Psychotherapy (ICD-10-PCS; principal; 2018-01-19)
DX: F03.90 Unspecified dementia, unspecified severity, without behavioral disturbance, psychotic disturbance, mood disturbance, and anxiety (principal); F43.20 Adjustment disorder, unspecified; J45.909 Unspecified asthma, uncomplicated; I12.9 Hypertensive chronic kidney disease with stage 1 through stage 4 chronic kidney disease, or unspecified chronic kidney disease; N18.9 Chronic kidney disease, unspecified; Z87.891 Personal history of nicotine dependence; K59.00 Constipation, unspecified; Z91.81 History of falling; R07.89 Other chest pain; J02.9 Acute pharyngitis, unspecified; G89.29 Other chronic pain; R41.89 Other symptoms and signs involving cognitive functions and awareness; S42.211D Unspecified displaced fracture of surgical neck of right humerus, subsequent encounter for fracture with routine healing; W19.XXXD Unspecified fall, subsequent encounter